=== PATIENT | female | born 2000 | race Caucasian/White ===

== ENCOUNTER 2022-09-03 21:35 | Inpatient (IN) | payer MEDICAID, SELFPAY ==
[2022-09-03 21:55] VITALS: BP 136/92; PULSE 63; RESP 22; TEMP 36.7; O2SAT 99
[2022-09-03 22:00] VITALS: BP 136/92; PULSE 63; RESP 22; TEMP 36.7; O2SAT 99
[2022-09-03 22:02] VITALS: BMI 18.7
[2022-09-03] MEDS: trazodone 50 mg Tablet PO (23:11)
[2022-09-03] MEDS: hyDROXYzine 25 mg Capsule 50 MG PO (23:11)
[2022-09-04 06:00] VITALS: BP 110/69; PULSE 70; RESP 16; TEMP 36.7; O2SAT 99
[2022-09-04] MEDS: nicotine 2 mg Gum BUCCAL ×4 (09:06→20:43)
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
[2022-09-04 14:00] VITALS: BP 129/88; PULSE 80; RESP 16; TEMP 36.4; O2SAT 97
[2022-09-04] MEDS: hyDROXYzine 25 mg Capsule 50 MG PO (18:24)
[2022-09-04 20:06] VITALS: BP 92/62; PULSE 59; RESP 16; TEMP 36.9; O2SAT 97
[2022-09-04] MEDS: trazodone 50 mg Tablet PO (20:35)
[2022-09-05] MEDS: acetaminophen 325 mg Tablet 650 MG PO ×2 (05:55→18:24)
[2022-09-05 06:00] VITALS: BP 109/76; PULSE 79; RESP 16; TEMP 36.6; O2SAT 98
[2022-09-05] MEDS: nicotine 2 mg Gum BUCCAL ×6 (07:41→21:00)
[2022-09-05] MEDS: hyDROXYzine 25 mg Capsule 50 MG PO (08:48)
--- NOTE | 2022-09-05 08:48 | PC.NURSE ---
PRN VISTARIL 50 MG GIVEN PO PER PT C/O STATED ANXIETY
[2022-09-05 14:00] VITALS: BP 124/89; PULSE 99; RESP 18; O2SAT 97
[2022-09-05] MEDS: escitalopram 10 mg Tablet PO (16:33)
--- NOTE | 2022-09-05 17:19 | W.PM.NPUPNS ---
Subjective NPU Subjective: Patient presented today reporting that she is doing fine. Her focus was squarely on the discharge. We continue to important she focused on being here and what she needed to ensure that she did have an episode like the one she had leading up to taking the overdose. Her boyfriend visited for visitation and she was focused on seeing if she could go home with him. We told her that it was our to make sure she has resources necessary to avoid a repeat and that the treatment team would be here tomorrow to ensure that that happens. Mental Status Exam MSE Comments: This is a thin, white female, in hospital scrubs, with limited grooming and adequate eye contact. No abnormal movements, except for mild psychomotor retardation. Cooperative with exam in mild distress. Speech was normal rate and volume. Mood described as pretty good but need to get home; affect anxious. Thought process, organized. Thought content: patient denied any suicidal or homicidal ideation, there were no delusions reported or noted, patient denied any auditory or visual hallucinations. Attention, concentration, and memory appeared intact, but none were formally tested. Alert and oriented times three. Insight and judgment are limited. Impulse control is impaired. Vitals/I&O/Wt Last Vital Signs Temp 98.2 F 09/05/22 20:59 Pulse 59 L 09/05/22 20:59 Resp 16 09/05/22 20:59 BP 110/71 09/05/22 20:59 Pulse Ox 97 09/05/22 20:59 O2 Del Method Room Air 09/05/22 20:59 Weight last 48 hrs Weight 52.707 kg A&P Assessment and plan (1) Major depressive disorder, recurrent: (2) PTSD (post-traumatic stress disorder): (3) Partner relational problem: (4) Generalized anxiety disorder: Plan This is a 22-year-old female, who presents after an attempted overdose on a hold, with significant history of trauma expressing a desire to be discharged. 1. Continue current medication. Which is Lexapro 10 mg p.o. every morning. 2. Encourage individual, group, and milieu therapy. 3. Continue q-15-minute checks for safety. Involuntary Hold Information 96 Hour Hold: 96 Hour Involuntary Admission: Yes 96 Hour Hold Ending Date: 09/08/22 96 Hour Hold Ending Time: 21:30 Attestations NPU Medical Necessity Statement*: Inpatient hospitalization is medically necessary and the clinically appropriate intervention, at this time. We will monitor medications and make changes as indicated. Likely length of stay is 1-3 days. Coding Level of Care Code Acute Code for Chg Fwd Diagnoses Major depressive disorder, recurrent F33.9 PTSD (post-traumatic stress disorder) F43.10 Partner relational problem Z63.0 Generalized anxiety disorder F41.1
[2022-09-05 20:59] VITALS: BP 110/71; PULSE 59; RESP 16; TEMP 36.8; O2SAT 97
[2022-09-05] MEDS: trazodone 50 mg Tablet PO (21:00)
[2022-09-06 06:00] VITALS: BP 109/72; PULSE 54; RESP 16; TEMP 36.8; O2SAT 99
[2022-09-06] MEDS: nicotine 2 mg Gum BUCCAL ×3 (06:45→12:41)
[2022-09-06] MEDS: escitalopram 10 mg Tablet PO (08:05)
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
[2022-09-06 10:18] VITALS: BP 109/72; PULSE 54; RESP 16; TEMP 36.8; O2SAT 99
[2022-09-06] MEDS: acetaminophen 325 mg Tablet 650 MG PO (12:41)
--- OUTSIDE RECORDS SUMMARY | 2022-09-14 07:07 | XMS_ITS | Patient Health Record ---
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 Name Role Phone Jamil Ruy Unavailable [phone] Pinky Mustafa Unavailable Faby Byrne Unavailable [phone] PROBLEMS Type Condition ICD9-CM Code RNE58-VL Code Onset Dates Condition Status W/U Status Risk SNOMED Code Notes Problem Gallstones K80.20 confirmed [id number] Problem Gallstones K80.20 confirmed [id number] ALLERGIES No Known Allergies ENCOUNTERS from 2002 to 2022-09-14 Encounter Location Date Provider Diagnosis [facility] [address] [place] [address] Aug, Ruy Negron [facility] [address] [place] [address] Aug, Ruy Negron [facility] [address] [place] [address] 08 Aug, 2021 Ruy Negron [facility] [address] [place] [address] Aug, Ruy Negron [facility] [address] [place] [address] July, Ruy Negron Gallstones K80.20 [facility] [address] [place] [address] Nov, Ruy Negron Gallstones K80.20 and Nausea R11.0 SOCIAL HISTORY Tobacco Use: Social History Observation Description Date Details (start date - stop date) Never Smoker Sex Assigned At : Social History Observation Description Sex Assigned At Unknown Alcohol Screen Question Answer Notes Did you have a drink containing alcohol in the p ast year? No Did you have a drink containing alcohol in the p ast year? No Points 0 Points 0 Interpretation Negative Interpretation Negative Tobacco Use/Smoking Question Answer Notes Are you a never smoker Are you a never smoker REASON FOR REFERRAL from 2002 to 2022-09-14 Reason RE:12/02/20 Referring Provider First Name Ruy Referring Provider Last Name Jamil Referring Provider Specialty General Tito tej Referred Provider Sanjeev Plascencia Referral Priority Routine Reason 08/26/21P 08/18/2021 Diagnosis 1 Gall stones (K80.20) Referred Provider Ruy Negron Referred Provider Specialty Surgery Referral Priority Routine Reason RE: 08/18/2021 Referring Provider First Name Ruy Referring Provider Last Name Jamil Referring Provider Specialty General Tito tej Referred Provider Skye Perrin Referral Priority Routine Reason RE: 09/08/21 Referring Provider First Name Ruy Referring Provider Last Name Jamil Referring Provider Specialty General Tito tej Referred Provider Sanjeev Plascencia Referral Priority Routine Reason RE:08/26/21 Referring Provider First Name Ruy Referring Provider Last Name Jamil Referring Provider Specialty General Tito tej Referred Provider Sanjeev Plascencia Referral Priority Routine VITAL SIGNS from 2002 to 2022-09-14 Height 65 in July, Weight 134.0 lbs July, BMI 22.3 kg/m2 July, Temperature 98.7 degrees Fahrenheit July, Oximetry 100 % July, Heart Rate 76 /min July, Respiratory Rate 20 /min July, Blood pressure systolic 97 mm Hg July, Blood pressure diastolic 66 mm Hg July, MEDICATIONS Medication SIG (Take, Route, Frequency, Duration) Notes Start Date End Date Status Norethindrone Active REASON FOR VISIT No Information MEDICAL (GENERAL) HISTORY Type Description Date Medical History Depressive disorder Medical History Cholelithiasis without Cholecyst itis Medical History Marijuana use Medical History ulcers Hospitalization History Gall stones Hospitalization History Childbirth x2 MENTAL STATUS No Information ASSESSMENTS Encounter Date Diagnosis Assessment Notes Treatment Notes Treatment Clinical Notes Aug, Gallstones (ICD-10 - K80.20) July, Gallstones (ICD-10 - K80.20) July, Other Patient wearing appropriate face mask while in clinic/exam room. COVID 19 Surgery Protocol Instructions given. This [employer] in full PPE. The patient understands the risk of bleeding, bile duct injury, injury to other organs, the potential need for open surgery. The patient is wishes to proceed. Symptomatic cholelithiasis. Plan laparoscopic cholecystectomy. The operation is reviewed. Risk of infection, bleeding, bile duct injury, injury to other organs in the abdomen potential need for open surgery at about 3%. She expresses understanding of the procedure and we will schedule in the near future. Nov, Nausea (ICD-10 - R11.0) Nov, Gallstones (ICD-10 - K80.20) Gallstones material was printed Nov, Other Patient wearing appropriate face mask while in clinic/exam room; this nurse in full PPE Cholelithiasis without evidence of cholecystitis. Nausea with emesis at times. She said she had good results with Zofran with her previous . We will go ahead and prescribe some for that. I advised that if she had persisting issues that she would need to go ahead and see her dairy associate for evaluation. In regard to her gallstones, she is going to have to wait for surgery. I have advised her the 22 to 25-week gestation window is probably optimal. Organogenesis and neuro Natasha are all completed at that time and size of the uterus is an issue particularly with laparoscopic surgery. She understands that premature delivery of her child will result in a intensive care unit situation. I advised her about the only circumstance for operative intervention would be evidence of advanced cholecystitis that was refractory to medical management with IV fluids and antibiotics. Certainly is possible that her difficulty with her nausea is primarily related to her and time will tell about that. I advised her to avoid grossly fatty foods to decrease gallbladder problems. She acknowledged understanding. She has an appointment to see Dr. Beverly for obstetrics care. PLAN OF TREATMENT Treatment Notes Assessment Notes Clinical Notes Gallstones Gallstones material was printed Pending Tests Test Name Order Date Test, Urine 2021-08-18 Comp. Metabolic Panel (14) 2021-08-18 CBC 2021-08-18 Referrals Referral Date Details RE:12/02/20, Sanjeev Bangura lsted 08/26/21P 08/18/2021 , Ruy Negron RE: 08/18/2021 RE: 09/08/21, Sanjeev garduno RE:08/26/21, Sanjeev Bangura lsted Insurance Providers Payer Name Payer Address Payer Phone Insured Name Patient Relationship to Insured Coverage Start Date Coverage End Date Subscriber Number Group Number [employer] [place] Virgen Fuentes [id number] [facility] [id number] Maddie Pascual Self - patient is the insured [id number]
--- OUTSIDE RECORDS SUMMARY | 2022-09-14 07:07 | XMS_ITS | Patient Health Record ---
Author Name Unknown Organization [facility] Address [address] [place] [id number] Care Team Providers Care Nutrition Services Aide Name Role Phone Neftalyleandra Sanjeev Unavailable [phone] Letha Fernandez Unavailable [phone] Carlos Verdugo Unavailable [phone] Olga Hawkins Unavailable [phone] xxxAlexsandra Tamez Unavailable [phone] xxxDhara Vasquez Unavailable xxSkye Mae Unavailable [phone] Frank Steele Unavailable [phone] Rachel Boyd Unavailable [phone] xxxRaul Jimenez Unavailable [phone] xxxArnaud Smith Unavailable [phone] Mason Doe Unavailable [phone] xxAlan Mast Unavailable [phone] xxxMcMarcelo Zhang Unavailable [phone] xxxWicho Cole Unavailable [phone] Judson Barrera Unavailable [phone] PROBLEMS Type Condition ICD9-CM Code WNV11-TV Code Onset Dates Condition Status W/U Status Risk SNOMED Code Notes Problem Gallstones K80.20 confirmed [id number] Problem Low lying placenta without hemorrhage, antepartum O44.40 confirmed [id number] Problem Constipation, unspecified constipation type K59.00 confirmed [id number] Problem Health Risk Assessment Level 3 (Secondary Prevention) 000.3 confirmed [id number] Problem PTSD (post-traumat ic stress disorder) F43.10 confirmed 84666560 Problem Nausea/vomiti ng in O21.9 confirmed 13595585 Problem Anxiety F41.9 confirmed 75109499 Problem Depression with anxiety F41.8 confirmed 875288082 Problem Gastroesophag eal reflux disease with esophagitis, unspecified whether hemorrhage K21.00 confirmed 362573468 Problem Marijuana use F12.90 confirmed 25115 0004 Problem and not yet delivered Z34.90 [id number] Problem Antepartum placenta circumvallata O43.119 confirmed 8595012 ALLERGIES Allergen (clinical drug ingredient) Drug/Non Drug Allergy documented on EMR Reaction Allergy Type Onset Date Status sertraline Zoloft([facility] Code:[address]-65) mood changes Drug Allergy Active ENCOUNTERS from 2002 to 2022-09-14 Encounter Location Date Provider Diagnosis [address] [place] [id number] Aug, Sanjeev Plascencia Depression with anxiety F41.8 ; Marijuana use F12.90 ; Low back pain at multiple sites M54.50 and PTSD (post-traumatic stress disorder) F43.[address] [place] [id number] Aug, Sanjeev Plascencia Depression with anxiety F41.8 ; Marijuana use F12.90 ; Low back pain at multiple sites M54.50 and Encounter for contraceptive planning Z30.09 [facility] [place] [id number] May, Letha Fernandez uterine contractions in third trimester, antepartum O47.03 ; 33 weeks gestation of Z3A.33 ; Nausea/vomiting in O21.9 ; Low lying placenta without hemorrhage, antepartum O44.40 ; Marijuana use F12.90 ; Antepartum placenta circumvallata O43.119 ; PTSD (post-traumatic stress disorder) F43.10 ; Anxiety F41.9 and History of delivery, currently O09.[address] [place] [id number] May, Sanjeev Plascencia Encounter for supervision of other normal , third trimester Z34.83 ; Nausea/vomiting in O21.9 ; contractions O47.00 ; Marijuana use F12.90 and Anxiety F41.[address] [place] [id number] May, Ross Halsted Nausea/vomiting in O21.[address] [place], [place] [id number] 21 Apr, 2022 Ross Halsted Encounter for supervision of other normal , third trimester Z34.83 ; Nausea and vomiting in O21.9 ; contractions O47.00 ; Marijuana use F12.90 ; PTSD (post-traumatic stress disorder) F43.10 and Anxiety F41.9 [facility] [address] [facility] [place] [id number] 16 Apr, 2022 Ross Halsted with 29 completed weeks gestation Z3A.29 ; Nausea and vomiting in O21.9 ; contractions O47.00 ; History of labor Z87.51 ; Low lying placenta without hemorrhage, antepartum O44.40 ; Marijuana use F12.90 and Antepartum placenta circumvallata O43.[address] [place] [id number] 16 Apr, 2022 Ross Halsted Nausea/vomiting in O21.[address] [place] [id number] 14 Apr, 2022 Ross Halsted Antepartum placenta circumvallata O43.119 ; Low lying placenta without hemorrhage, antepartum O44.40 ; Encounter for supervision of other normal , third trimester Z34.83 and Dermatitis L30.[address] [place] [id number] Mar, Ross Halsted Nausea/vomiting in O21.[address] [place] [id number] Mar, Ross Halsted Encounter for supervision of other normal , second trimester Z34.[address] [place] [id number] Feb, Ross Halsted Nausea/vomiting in O21.[address] [place] [id number] 29 Nov, 2022 Ross Halsted Encounter for supervision of other normal , second trimester Z34.82 [facility] [address] [place] [id number] 31 Dec, 2021 Ross Halsted Nausea/vomiting in O21.9 [facility] [address] [place] [id number] 17 Dec, 2021 Ross Halsted [facility] [address] [place] [id number] 10 Dec, 2021 Ross Halsted Nausea/vomiting in O21.9 and Encounter for supervision of other normal , first trimester Z34.81 [facility] [address] [place] [id number] 19 Nov, 2021 Ross Halsted Malaise R53.81 ; Encounter for supervision of other normal , first trimester Z34.81 ; Viral URI J06.9 and related nausea and vomiting, antepartum O21.9 [place] [address] [place] [id number] 16 Nov, 2021 Ross Halsted Nausea/vomiting in O21.9 [place] [address] [facility] [address] [place] [id number] Nov, Ross Halsted [place] [address] [place] [id number] Oct, Ross Halsted Nausea/vomiting in O21.9 [place] [address] [facility] [place] [id number] July, Skye Brandt Encounter for initial prescription of contraceptive pills Z30.011 and History of gallstones Z87.[address], [place] [id number] May, Ross Halsted with 34 completed weeks gestation Z3A.34 ; premature rupture of membranes with onset of labor within 24 hours of rupture O42.019 ; Low lying placenta without hemorrhage, antepartum O44.40 ; Marijuana use F12.90 and Vaginal delivery O80 [address], [place] [id number] May, Ross Halsted with 34 completed weeks gestation Z3A.34 ; premature rupture of membranes with onset of labor within 24 hours of rupture O42.019 ; Low lying placenta without hemorrhage, antepartum O44.40 ; Marijuana use F12.90 and Vaginal delivery O80 [address], [place] [id number] 11 May, 2021 Ross Halsted with 34 completed weeks gestation Z3A.34 and premature rupture of membranes with onset of labor within 24 hours of rupture O42.[address], [place] [id number] May, Ross Halsted with 34 completed weeks gestation Z3A.34 ; premature rupture of membranes with onset of labor within 24 hours of rupture O42.019 ; Low lying placenta without hemorrhage, antepartum O44.40 and Marijuana use F12.[address], [place] [id number] May, Frank Ivette Vaginal bleeding during , antepartum O46.90 ; Low lying placenta with hemorrhage in third trimester, antepartum O44.53 ; Hyperemesis affecting , antepartum O21.0 and Cannabis abuse, daily use F12.[address] [place] [id number] May, Ross Halsted [address] [place] [id number] May, Ross Halsted Low lying placenta without hemorrhage, antepartum O44.40 and Encounter for supervision of other normal , third trimester Z34.[address] [place], [place] [id number] Apr, Ross Halsted Vaginal discharge N89.8 ; Low lying placenta without hemorrhage, antepartum O44.40 ; Acute vaginitis N76.0 ; Other specified bacterial agents as the cause of diseases classified elsewhere B96.89 and Encounter for supervision of other normal , third trimester Z34.[address] [place] [id number] Apr, Ross Halsted [address] [place] [id number] Apr, Ross Halsted Vaginal discharge N89.8 ; Yeast vaginitis B37.3 and Encounter for supervision of other normal , third trimester Z34.[address] [place], [place] [id number] Mar, Ross Halsted Low lying placenta without hemorrhage, antepartum O44.40 ; Encounter for immunization Z23 and Encounter for supervision of other normal , third trimester Z34.[address] [place] [id number] 03 Mar, 2021 Sanjeev Plascencia Encounter for supervision of other normal , second trimester Z34.82 and Dysuria R30.[address] [place] [id number] Feb, Sanjeev Plascencia Nausea/vomiting in O21.9 ; Constipation, unspecified constipation type K59.00 ; Gastroesophageal reflux disease with esophagitis, unspecified whether hemorrhage K21.00 and Encounter for supervision of other normal , second trimester Z34.[address] [place] [id number] 11 Jan, 2021 Sanjeev Halsted [address] [place] [id number] 10 Jan, 2021 Sanjeev Plascencia Cervical cancer screening Z12.4 ; Vaginal discharge N89.8 ; Vaginal spotting N93.9 and Encounter for supervision of other normal , second trimester Z34.[address] [place] [id number] 04 Jan, 2021 Sanjeev Plascencia Encounter for supervision of other normal , second trimester Z34.[address] [place] [id number] 12 Dec, 2020 Sanjeev Halsted [address] [place], [place] [id number] 07 Dec, 2020 Sanjeev Higginbothamstjd Tinea corporis B35.4 ; Encounter for supervision of normal first , first trimester Z34.01 and Itching L29.[address] [place] [id number] Dec, Ross Halsted [address] [place] [id number] Nov, Ross Halsted [address] [place] [id number] Nov, Sanjeev Higginbothamstjd Gallstones K80.20 ; Nausea/vomiting in O21.9 and Encounter for supervision of other normal , first trimester Z34.[address] [place] [id number] 20 Nov, 2020 Sanjeev Plascencia [address] [place] [id number] 29 Nov, 2019 Dhara xxxMorgan Missed period N92.6 ; Breast pain N64.4 and Left breast lump N63.[address] [place] [id number] 14 Nov, 2019 Dhara xxxMorgan Well adolescent visit Z00.[address] [place] [id number] 10 May, 2019 Rachel Boyd Follow up Z09 ; Nerve pain M79.2 and Missed period N92.[address] [place] [id number] Feb, Dhara xxxMozaida Vulvodynia, unspecified N94.[address] [place] [id number] Jan, Rachelbest Boyd Neuropathy G62.[address] [place] [id number] Jan, Dhara xxxMorgan [address] [place] [id number] Dec, Dhara xxxMorgan Encounter for surveillance of injectable contraceptive Z30.[address] [place] [id number] Dec, Dhara xxxMorroseanna Neuropathy G62.9 ; Yeast infection B37.9 and Encounter for contraceptive management Z30.[address] [place] [id number] Nov, Dhara xxxMorgan [address] [place] [id number] Nov, Rachel Boyd Abdominal pain R10.9 and Musculoskeletal pain M79.[address] [place] [id number] 06 Nov, 2018 Dhara xxxMorgan Epigastric pain R10.13 ; Encounter for well adolescent visit with abnormal findings Z00.121 and Depression with anxiety F41.[address] [place] [id number] Oct, Dhara Babcock Acute vaginitis N76.[address] [place] [id number] Oct, Raul xxxTony Acute non-recurrent maxillary sinusitis J01.00 [facility] [address] [place] [id number] Sep, Dhara Babcock Encounter for Depo-Provera contraception Z30.42 [facility] [address] [facility] [place] [id number] Sep, Dhara Babcock [facility] Medicine Group [address] [place] [address] [place] [id number] July, Alexsandra Haines Diarrhea of presumed infectious origin R19.7 [facility] Medicine [address] [place] [id number] Jun, Alexsandra Haines Encounter for immunization Z23 ; Encounter for management and injection of depo-Provera Z30.42 ; Reflux gastritis K29.60 ; Well adolescent visit Z00.129 and 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 [facility] Medicine [address] [place], [place] [id number] Jun, Alexsandra Haines UTI symptoms R39.9 and Cystitis with hematuria N30.[address] [place] [id number] May, Arnaud xxxKaspar Gastroenteritis K52.[address] [place] [id number] Apr, Raul simmsxTony Fever and chills R50.9 and Acute non-recurrent maxillary sinusitis J01.00 [facility] Medicine [address] [place] [id number] Mar, Alexsandra simmsxDashawn UTI symptoms R39.9 and Routine screening for STI (sexually transmitted infection) Z11.3 [facility] Medicine [address] [place] [id number] Mar, Alexsandra simmsxHolliman [facility] Medicine Group [address] [place] [address] [place] [id number] Mar, Alexsandra xxxHolliman Encounter for contraceptive management Z30.[address] [place] [id number] Mar, Alexsandra xxxHolliman [address] [place] [id number] Mar, Alexsandra xxxHolliman [address] [place] [id number] Mar, Arnaud xxxKaspar Upper respiratory tract infection, unspecified type J06.9 and Diarrhea, unspecified type R19.[address] [place] [id number] Feb, Alexsandra xxxHolliman Acute non-recurrent maxillary sinusitis J01.[address] [place] [id number] Dec, Alexsandra xxxHolliman History of Helicobacter pylori infection Z86.19 ; Vertigo R42 and 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 [place] [id number] Dec, Alexsandra xxxHolliman Depo-Provera contraceptive status Z30.[address] [place] [id number] Nov, Alexsandra xxxHolliman [address] [place] [id number] Nov, Alexsandra xxxHolliman Rib pain on left side R07.81 and Reflux gastritis K29.[address] [place] [id number] Oct, Alexsandra xxxHolliman [address] [place] [id number] Sep, Marcelo xxxMcCall Encounter for contraceptive management Z30.[address] [place] [id number] Sep, Alexsandra xxxHolliman [address] [place] [id number] Jun, Alexsandra xxxHolliman Encounter for contraceptive management Z30.[address] [place], [place] [id number] May, Alexsandra simmsxHoljuwan UTI symptoms R39.9 and Pain in female genitalia on intercourse N94.[address] [place] [id number] Apr, Alexsandrahaylee simmsxHollimaudrey [address] [place] [id number] Mar, Alexsandra Haines Encounter for contraceptive management Z30.9 and Well adolescent visit Z00.[address] [place] [id number] Mar, Alexsandra xxxHollimaudrey [address] [place] [id number] Mar, Skipper xxxMcCormick [address] [place] [id number] Feb, Alexsandrahaylee simmsxHoljuwan Fever, unspecified fever cause R50.9 ; Other viral agents as the cause of diseases classified elsewhere B97.89 and Other specified respiratory disorders J98.[address] [place] [id number] Feb, Alexsandra xxxHolliman [address] [place] [id number] Feb, Alexsandrahaylee simmsxHoljuwan Reflux gastritis K29.[address] [place] [id number] Feb, Alexsandra xxxHolliman [address] [place] [id number] Jan, Alexsandra xxxHolliman [address] [place] [id number] Jan, Alexsandra xxxHolliman Impacted cerumen of right ear H61.[address] [place] [id number] Jan, Alexsandra xxxHolliman [address] [place] [id number] Jan, Alexsandra xxxHollimaudrey Right acute otitis media H66.91 and Impacted cerumen of right ear H61.[address] [place] [id number] Jan, Mason Doe Encounter for initial prescription of Nexplanon Z30.[address] [place], [place] [id number] Jan, Raul fletcherKathidaniel Acute suppurative otitis media of right ear without spontaneous rupture of tympanic membrane, recurrence not specified H66.001 and Impacted cerumen of right ear H61.[address] [place], [place] [id number] Dec, Alan Karen AGE (acute gastroenteritis) K52.9 and Flu-like symptoms R68.89 [facility] Medicine [address] [place] [id number] Dec, Alexsandra Haines Encounter for surveillance of injectable contraceptive Z30.[address] [place] [id number] Dec, Alexsandra Haines [address] [place] [id number] Dec, Skipper xxxMcCormick [address] [place] [id number] Dec, Alexsandra Haines Coccygeal pain M53.3 and Urinary symptom or sign R39.[address] [place] [id number] Dec, Alexsandra Haines [address] [place] [id number] Dec, Alexsandra Haines [address] [place] [id number] Nov, Alexsandra simmsxHollimaudrey [facility] Medicine [address] [place] [id number] Nov, Alexsandra Haines Urinary tract infection symptoms R39.9 and Routine screening for STI (sexually transmitted infection) Z11.[address] [place] [id number] Nov, Alexsandra simmsxDashawn Fatigue, unspecified type R53.83 and Reflux gastritis K29.[address] [place] [id number] Nov, Alexsandra simmsxHollimaudrey [address] [place] [id number] Oct, Alexsandra simmsxDashawn Urinary tract infection symptoms R39.9 and Urinary tract infection, site not specified N39.[address] [place] [id number] Sep, Alexsandra fletcherHoljuwan Encounter for contraceptive management, unspecified Z30.[address] [place] [id number] Sep, Alexsandra simmsxHollimaudrey [address] [place] [id number] Sep, Alexsandra Haines Contraceptive education Z30.[address] [place] [id number] Aug, Alexsandra Haines [address] [place] [id number] July, Alexsandra Haines Closed nondisplaced fracture of fifth metatarsal bone of right foot, initial encounter S92.354A [facility] [address] [place] [id number] July, Judson Barrera Electric shock, initial encounter T75.4XXA [address] [place] [id number] Apr, Alexsandrahaylee simmsxHoljuwan Dysuria R30.0 ; Common wart B07.8 and Urinary tract infection, site unspecified N39.[address] [place] [id number] Mar, Alexsandrahaylee simmsxHoljuwan Sore throat J02.9 ; Other viral agents as the cause of diseases classified elsewhere B97.89 and Acute upper respiratory infection, unspecified J06.[address] [place] [id number] Mar, Alexsandra Bergeronlimaudrey [address] [place] [id number] Mar, Alexsandra simmsxDashawn Spleen enlarged R16.1 and Epigastric abdominal pain R10.[address] [place] [id number] Feb, Alexsandra simmsxHollimaudrey [address] [place] [id number] Feb, Alexsandra Haines [address] [place] [id number] Feb, Alexsandra Haines [facility] [address] [place] [address] [place] [id number] Jan, Alexsandra Haines Spleen enlarged R16.[address] [place] [id number] Jan, Alexsandra Haines [address] [place] [id number] Jan, Alexsandra Haines [address] [place] [id number] Jan, Alexsandra Haines Acute gastritis without hemorrhage, unspecified gastritis type K29.00 and Left sided abdominal pain R10.[address] [place] [id number] Dec, Alexsandra Haines Acute gastritis without hemorrhage, unspecified gastritis type K29.[address] [place] [id number] Nov, Alexsandra Haines Encounter for education about contraceptive use Z30.[address] [place] [id number] Oct, Alexsandra Haines Urinary tract infection symptoms R39.9 and Patella-femoral syndrome M22.2X9 [address] [place] [id number] Nov, Alexsandra Haines Emotional problem of childhood 313.9 and Knee clicking 719.66 IMMUNIZATIONS Vaccine Route Administration Date Status Menactra (VFC) IM Intramuscular July 10, 2018 Adminis tered Havrix Ped IM Intramuscular July 10, 2018 Administe red Gardasil 9 (VFC) IM Intramuscular July 10, 2018 Admin istered Adacel IM Intramuscular Apr 16, 2021 Administere d SOCIAL HISTORY Tobacco Use: Social History Observation Description Date Details (start date - stop date) Current Smoker Sex Assigned At : Social History Observation Description Sex Assigned At Unknown Depression Question Answer Notes PHQ-2 Score 2 Feeling down, depressed, or hopeless? Several da ys Little interest or pleasure in doing things? Interpretation PHQ-9 Moderate Depression Score PHQ-9 14 Thoughts that you would be b troy off , or of hurting yourself? Not at all Moving or speaking so slowly that others have noticed. Or the opposite, being fidgety or restless? More than half the days Trouble concentrating on thi ngs, such as reading or watching TV? More than half the days Feeling bad about yourself, or that you have let yourself or your family down? Several days Poor attetite or overeating? Nearly every day Feeling tired or having little energy? More than half the days Trouble falling or staying a sleep, or sleeping too much? More than half the days Feeling down, depressed, or helpless? Several da ys Little interest or pleasure in doing things? Tobacco Screening Question Answer Notes Are you a: current smoker How long ago did you quit smoking? 0 Are you an other tobacco user? No Are you interested in quitting? Not ready to abiola t How many cigarettes a day do you smoke? 6-10 How often do you smoke cigarettes? every day Drug Screening Question Answer Notes Have you used drugs other th an those for medical reasons in the past 12 months? Yes Sexual History Question Answer Notes Last menstrual period unknown REASON FOR REFERRAL from 2002 to 2022-09-14 Reason Evalaution of some emotional issues h/o of some family problems that mom wants to address with a counselor Diagnosis 1 Emotional problem of childhood (313.9) Referral Organization [facility] Medicine [place] up Referring Provider First Name Alexsandra Referring Provider Last Name Zaki Referring Provider Specialty Pediatrics Referred Provider Youth, [place] Referred Provider Specialty Child and Ad olescent Psychiatry Referral Priority Routine Referral Appointment Date 2014-02-28 General Notes Venus Miranda RN 3:11:30 PM >faxed referral Venus Miranda RN 12/11/2013 4:57:37 PM >Received at [facility] Venus Miranda , RN 12/24/2013 4:29:22 PM >Refaxed referral Venus Miranda , [place] 01/16/2014 10:14:40 AM >Pending robert Venus Miranda RN 01/29/2014 11:40:48 AM >Mother would like to be evaluated with [facility] Venus Miranda RN 01/31/2014 9:22:53 AM >Referral received at [facility]. Venus Miranda RN 02/28/2014 11:06:40 AM >spoke with robert Logan 02/28/[address] Ferrell's office : Evaluation of knee swelling and pain with exercise and popping of the patella and patella felt like lock up. Diagnosis 1 Knee clicking (719.6 6) Referral Organization [facility] [place] Referring Provider First Name Alexsandra Referring Provider Last Name Zaki Referring Provider Specialty Pediatrics Referred Provider Stephen Ferrell Referred Provider Specialty Orthopedic S urgery Referral Priority Routine Referral Appointment Date 2013-12-17 General Notes Venus Miranda RN 3:11:43 PM >faxed referral Venus Miranda RN 12/12/2013 11:56:35 AM >Called and left message informing patient of date and time of robert, Patient will be seen on Dec 18 at 10:45, patient needs to arrive at 10:20 Reason Mom is wiling her to have a gynecological exam and start control, due to some behavior she had had Diagnosis 1 Encounter for educat ion about contraceptive use (Z30.09) Referral Organization [facility] up Referring Provider First Name Alexsandra Referring Provider Last Name Zaki Referring Provider Specialty Pediatrics Referred Provider Mirna Akers Referred Provider Specialty OB - Gynecol ogy Referral Priority Routine General Notes Damari Mcgarry 11/27 3:21:48 PM >Fax has been sent Damari Mcgarry 12/02/2015 1:46:46 PM >Toshia at Dr. Peterson's office states that they will call and make appointment with patient. This is will be mid December. Damari Mcgarry 12/02/2015 2:24:11 PM >Mother informed me that patient has appointment with Dr. Akers on Reason Patient with chronic abdominal pain ( epigastric/ LLQ) , partially improved on Ranitidine and dietary changes Appt 04/08/16 Diagnosis 1 Left sided abdominal pain (R10.9) Referral Organization [facility] up Referring Provider First Name Alexsandra Referring Provider Last Name demixHoljuwan Referring Provider Specialty Pediatrics Referred Provider Rubina Streeter Referred Provider Specialty Pediatric Ga stroenterology Referral Priority Routine General Notes Jodi Garcia LPN 4:25:35 PM >Referral faxed. Mother notified to call their office and confirm appt. She verbalized understanding. Reason Evaluate and Treat. Please make apt for next week if possible Diagnosis 1 Closed nondisplaced fracture of fifth metatarsal bone of right foot with routine healing, subsequent encounter (S92.963D) Referral Organization [facility] Medicine Lisandro up Referring Provider First Name Alexsandra Referring Provider Last Name xxxHolliman Referring Provider Specialty Pediatrics Referred Provider Abel Thomas Referred Provider Specialty Orthopedic S urgery Referral Priority Stat Referral Appointment Date 2016-08-17 General Notes Azalea Calderon 2:11:52 PM >Appt scheduled for 08/17/16 at 4:00pm, faxed referral and BARBARA referral, called parent LMTCB. Azalea Calderon 08/13/2016 2:21:56 PM >Mother notified Mary Jones 08/26/2016 2:04:05 PM >faxed referral tracking Azalea Calderon 09/29/2016 9:40:57 AM >Faxed request for consult notes Azalea Calderon 11/30/2016 10:31:58 AM >consult notes were attached and reviewed, Closed referral. Reason Seen before there, o ngoing episodes of abdominal pain, some reflux symptoms faxed 02-25 Diagnosis 1 Reflux gastritis (K2 9.60) Referral Organization [facility] up Referring Provider First Name Alexsandra Referring Provider Last Name xxxHolliman Referring Provider Specialty Pediatrics Referred Provider Danuta Merritt Referred Provider Specialty Pediatric Ga stroenterology Referral Priority Routine General Notes Lilian Patterson 02/25/2017 11:00:28 AM >faxed 02-25 Lilian Patterson 03/09/2017 10:57:07 AM >Apr 5th parent has to call to get time Lilian Patterson 03/09/2017 12:33:59 PM >Pt's mother notifed Fatemeh Liu 04/25/2017 11:27:44 AM >notes recieved Reason please lary garcia Diagnosis 1 Depressive disorder, not elsewhere classified (F32.9) Referral Organization [facility] up Referring Provider First Name Alexsandra Referring Provider Last Name xxxHolliman Referring Provider Specialty Pediatrics Referred Provider [facility] ing Referred Provider Specialty Psychiatry Referral Priority Routine Referral Appointment Date 2018-02-13 General Notes Niecy Willson 3:11:54 PM >faxed appt needs to be after 230 in the afternoon. Reason Gallstones faxed-L C Diagnosis 1 History of gallstone s (Z87.19) Referral Organization [facility] up Referring Provider First Name Skye Referring Provider Last Name xxxBaker Referring Provider Specialty Nurse Pract itioner Referred Provider Ruy Negron Referred Provider Specialty General Surg juan Referral Priority Routine General Notes Aletha Moore 07/22/19 03:58:57 PM >Referral faxed electronically. Reason *mood symptoms fax ed Diagnosis 1 Depression with anxi ety (F41.8) Referral Organization [facility] Referring Provider First Name Sanjeev Referring Provider Last Name Halsted Referring Provider Specialty Family Medi cine Referred Provider [employer] [facility],[employer] Engineer ing Referred Provider Specialty Psychologist Referral Priority Routine Referral Appointment Date 2022-09-09 General Notes Carlos Verdugo 2022 08:42:56 AM >faxed Richie Neves 09/02/2022 03:22:39 PM >Called [facility] at [phone] left VM asking for a return to confirm referral received. Carlos Verdugo 09/03/2022 10:59:05 AM >verified with [facility] they received referral and ATC pt today but ph#not working. Carlos Verdugo 09/07/2022 09:30:05 AM >appt 09/09. Richie Neves 09/09/2022 01:03:16 PM >RTF FAXED VITAL SIGNS from 2002 to 2022-09-14 Height 65.5 in Aug, Weight 112.2 lbs Aug, BMI 18.39 kg/m2 Aug, Temperature 97.6 degrees Fahrenheit Aug, Oximetry 98 % Aug, Heart Rate 103 /min Aug, Respiratory Rate 16 /min Aug, Blood pressure systolic 112 mm Hg Aug, Blood pressure diastolic 80 mm Hg Aug, MEDICATIONS Medication SIG (Take, Route, Frequency, Duration) Notes Start Date End Date Status Escitalopram Oxalate 10 MG 1 tablet Oral ly Once a day for 30 days Aug, Active traZODone HCl 50 MG 1 tablet at bedtime Orally as needed Active PROCEDURES from 2002 to 2022-09-14 Procedure Date Ordered Date Performed Result Body Sit e Depo Provera Injection (Pt's medication) 2017-04-11 N/A Depo Provera Injection (Pt's medication) 2017-07-08 N/A Depo Provera Injection (Pt's medication) 2017-10-06 N/A Depo Provera Injection (Pt's medication) 2018-01-06 N/A Depo Provera Injection (Pt's medication) 2018-04-10 N/A Depo Provera Injection (Pt's medication) 2018-07-10 N/A RESULTS from 2002 to 2022-09-14 Component Value Reference Range Notes RAD LUMBAR SPINE W/OBLIQUES MIN 4V Reviewed date:09/06/2022 10:37:34 Interpretation:normal Performing Lab: Notes/Report: CBC (WBC,RBC,HGB,HCT,PLT) Reviewed date:05/30/2022 19:19:15 Interpretation: Performing Lab:, [facility] Laboratory ([id number]), [address] [place] [address], [address] Notes/Report: HEMATOCRIT 35.3 % 34.1-44.9 % HEMOGLOBIN 11.8 g/dL 11.2-15.7 g/dL MEAN CORPUSCULAR HEMOGLOBIN 29.8 pg 25.6-32.2 pg MEAN CORPUSCULAR HGB CONC 33.4 g/dL 32.2-35.5 g/dL MEAN CORPUSCULAR VOLUME 89.1 fL 79.4-94.8 fL MEAN PLATELET VOLUME 10.9 fL 9.4-12.3 fL PLATELET COUNT 292 10 3/uL 182-369 10 3/uL RED CELL DISTRIBUTION WIDTH 13.1 % 11.7-14.4 % RED BLOOD COUNT 3.96 10 6/uL 3.93-5.22 10 6/uL WHITE BLOOD COUNT 22.67 10 3/uL 3.98-10.04 10 3/uL URINALYSIS W/ REFLEX TO CULT URE IF INDICATED Reviewed date:05/30/2022 19:19:30 Interpretation: Performing Lab:, [facility] ([id number]), [address] [place] [address], [id number] Notes/Report: AMORPHOUS SED FEW /hpf BILIRUBIN NEG NEG BLOOD NEG NEG GLUCOSE NEG NEG KETONES 3+ NEG LEUKOCYTE ESTERASE TRACE NEG MUCUS MOD /hpf NITRITE NEG NEG pH 7.5 pH units 4.5-8.0 pH units PROTEIN NEG NEG-TRACE SPECIFIC GRAVITY 1.020 1.001-1.035 SQUAMOUS EPITHELIALS MOD /hpf URINE APPEARANCE CLEAR URINE BACTERIA MOD /hpf URINE COLLECTION C/C URINE COLOR YELLOW URINE CULTURE REFLEX CLEAN CATCH URINE RBC 4-6 /hpf URINE WBC 2-3 /hpf 0-5 /hpf UROBILINOGEN 0.2 E.U. <1.0 E.U. URINE MEDICAL DRUG SCREEN Reviewed date:05/30/2022 19:19:40 Interpretation: Performing Lab:, [facility] ([id number]), [address] [place] [address], [address] Notes/Report: URINE AMPHETAMINE SCREEN NEGATIVE ng/mL NEG < 500 ng/m L URINE BARBITURATES SCREEN NEGATIVE ng/mL NEG < 200 ng/ mL URINE BENZODIAZEPINE SCREEN NEGATIVE ng/mL NEG < 150 n g/mL URINE BUPRENORPHINE SCREEN NEGATIVE ng/mL NEG < 10 ng/ mL URINE COCAINE SCREEN NEGATIVE ng/mL NEG < 150 ng/mL URINE DRUG SCREEN COMMENT URINE METHADONE SCREEN NEGATIVE ng/mL NEG < 200 ng/mL URINE METHAMPHETAMINE SCREEN NEGATIVE ng/mL NEG < 500 ng/mL URINE OPIATES SCREEN NEGATIVE ng/mL NEG < 100 ng/mL URINE OXYCODONE SCREEN NEGATIVE ng/mL NEG < 100 ng/mL URINE PCP SCREEN NEGATIVE ng/mL NEG < 25 ng/mL URINE PROPOXYPHENE SCREEN NEGATIVE ng/mL NEG < 300 ng/ mL URINE THC SCREEN PRESUMPTIVE POSITIVE ng/mL NEG < 50 n g/mL URINE TRICYCLIC SCREEN NEGATIVE ng/mL NEG < 300 ng/mL TYPE & SCREEN Reviewed date:05/30/2022 19:19:23 Interpretation: Performing Lab:, [facility] ([id number]), [address] [place] [address], [id number] Notes/Report: ABO TYPE O ANTIBODY SCREEN NEGATIVE NEG Rh TYPE POS RPR WITH REFLEX TO CONFIRMAT ORY TESTING* Reviewed date:06/01/2022 18:22:02 Interpretation: Performing Lab:, [facility] Laboratory ([id number]), [address] [place] [address], [id number] Notes/Report: RAPID PLASMA REAGIN NON-REAC NON-REAC GROUP B STREP CULTURE Reviewed date:06/02/2022 17:53:08 Interpretation: Performing Lab:, [facility] Laboratory ([id number]), [address] [place] [address], [id number] Notes/Report: GROUP B STREP CULTURE 05/30/2022 19:05 CULTURE, URINE CLEAN CATCH* Reviewed date:06/01/2022 18:21:43 Interpretation: Performing Lab:, [facility] Laboratory ([id number]), [address] [place] [address], [phone] Notes/Report: CULTURE, URINE CLEAN CATCH 05/30/2022 16:32 WET PREP Reviewed date:05/31/2022 04:39:06 Interpretation: Performing Lab:, [facility] Laboratory ([id number]), [address] [place] [address], [id number] Notes/Report: WET PREP 05/30/2022 19:05 CBC W/ AUTO DIFF* Reviewed date:05/23/2022 20:37:27 Interpretation: Performing Lab:, [facility] Laboratory ([id number]), [address] [place] [address], [phone] Notes/Report: BASOPHILS # (AUTO) 0.1 10 3/uL 0.01-0.08 10 3/uL BASOPHILS % (AUTO) 0.4 % 0.1-1.2 % EOSINOPHILS # (AUTO) 0.1 10 3/uL 0.04-0.36 10 3/uL EOSINOPHILS % (AUTO) 0.4 % 0.7-5.8 % HEMATOCRIT 36.9 % 34.1-44.9 % HEMOGLOBIN 12.5 g/dL 11.2-15.7 g/dL LYMPHOCYTES # (AUTO) 2.1 10 3/uL 1.18-3.74 10 3/uL LYMPHOCYTES % (AUTO) 11.4 % MEAN CORPUSCULAR HEMOGLOBIN 29.8 pg 25.6-32.2 pg MEAN CORPUSCULAR HGB CONC 33.9 g/dL 32.2-35.5 g/dL MEAN CORPUSCULAR VOLUME 87.9 fL 79.4-94.8 fL MONOCYTES # (AUTO) 1.0 10 3/uL 0.24-0.86 10 3/uL MONOCYTES % (AUTO) 5.4 % 4.7-12.5 % MEAN PLATELET VOLUME 10.8 fL 9.4-12.3 fL NEUTROPHILS # (AUTO) 15.0 10 3/uL 1.56-6.13 10 3/uL NEUTROPHILS % (AUTO) 80.4 % 34.0-71.1 % PLATELET COUNT 258 10 3/uL 182-369 10 3/uL RED CELL DISTRIBUTION WIDTH 13.2 % 11.7-14.4 % RED BLOOD COUNT 4.20 10 6/uL 3.93-5.22 10 6/uL WHITE BLOOD COUNT 18.66 10 3/uL 3.98-10.04 10 3/uL COMPREHENSIVE METABOLIC PANE L Reviewed date:05/23/2022 20:37:27 Interpretation: Performing Lab:, [facility] Laboratory ([id number]), [address] [place] [address], [address]38[address] Notes/Report: ALANINE AMINOTRANSFERASE 18 U/L 12-78 U/L ALBUMIN 3.2 gm/dL 2.6-4.6 gm/dL ALBUMIN/GLOBULIN RATIO 0.9 >1.0 ALKALINE PHOSPHATASE 124 U/L 30-130 U/L ANION GAP 12 mmol/L 5-15 mmol/L ASPARTATE AMINO TRANSFERASE 14 U/L 15-37 U/L BLOOD UREA NITROGEN 6 mg/dL 7-18 mg/dL CALCIUM 9.2 mg/dL 7.9-9.5 mg/dL CARBON DIOXIDE 21 mEq/L 21-32 mEq/L CHLORIDE 109 mEq/L 98-107 mEq/L CKD STAGE 1 Stage CREATININE 0.3 mg/dL 0.55-1.3 mg/dL EST GLOMERULAR FILTRATION RATE >90 60+ GLOBULIN 3.7 gm/dL 2.6-4.8 gm/dL GLUCOSE,RANDOM 86 mg/dL 74-106 mg/dL POTASSIUM 3.4 mEq/L 3.5-5.1 mEq/L SODIUM 139 mEq/L 136-145 mEq/L TOTAL BILIRUBIN 0.4 mg/dL 0.2-1.0 mg/dL TOTAL PROTEIN 6.9 gm/dL 6.0-8.7 gm/dL URINE MEDICAL DRUG SCREEN Reviewed date:05/23/2022 20:37:27 Interpretation: Performing Lab:, [facility] Laboratory ([id number]), [address] [place] [address], [address] Notes/Report: URINE AMPHETAMINE SCREEN NEGATIVE ng/mL NEG < 500 ng/m L URINE BARBITURATES SCREEN NEGATIVE ng/mL NEG < 200 ng/ mL URINE BENZODIAZEPINE SCREEN NEGATIVE ng/mL NEG < 150 n g/mL URINE BUPRENORPHINE SCREEN NEGATIVE ng/mL NEG < 10 ng/ mL URINE COCAINE SCREEN NEGATIVE ng/mL NEG < 150 ng/mL URINE DRUG SCREEN COMMENT URINE METHADONE SCREEN NEGATIVE ng/mL NEG < 200 ng/mL URINE METHAMPHETAMINE SCREEN NEGATIVE ng/mL NEG < 500 ng/mL URINE OPIATES SCREEN NEGATIVE ng/mL NEG < 100 ng/mL URINE OXYCODONE SCREEN NEGATIVE ng/mL NEG < 100 ng/mL URINE PCP SCREEN NEGATIVE ng/mL NEG < 25 ng/mL URINE PROPOXYPHENE SCREEN NEGATIVE ng/mL NEG < 300 ng/ mL URINE THC SCREEN PRESUMPTIVE POSITIVE ng/mL NEG < 50 n g/mL URINE TRICYCLIC SCREEN NEGATIVE ng/mL NEG < 300 ng/mL URINALYSIS WITH REFLEXES Reviewed date:05/23/2022 20:37:27 Interpretation: Performing Lab:, [facility] Laboratory ([id number]), [address] [place] [address], [address]78[address] Notes/Report: BILIRUBIN NEG NEG BLOOD NEG NEG GLUCOSE NEG NEG KETONES 3+ NEG LEUKOCYTE ESTERASE NEG NEG NITRITE NEG NEG pH 7.5 pH units 4.5-8.0 pH units PROTEIN TRACE NEG-TRACE SPECIFIC GRAVITY 1.020 1.001-1.035 URINE APPEARANCE CLEAR URINE COLLECTION C/C URINE COLOR YELLOW UROBILINOGEN 0.2 E.U. <1.0 E.U. RUPTURE OF MEMBRANES Reviewed date:05/09/2022 20:25:07 Interpretation:Negative Performing Lab:, [facility] Laboratory ([id number]), [address] [place] [address], [address]133 Notes/Report: RUPTURE OF MEMBRANES TEST NEGATIVE N URINE MEDICAL DRUG SCREEN Reviewed date:05/07/2022 05:15:19 Interpretation: Performing Lab:, [facility] Laboratory ([id number]), [address] [place] [address], [phone] Notes/Report: URINE AMPHETAMINE SCREEN NEGATIVE ng/mL NEG < 500 ng/m L URINE BARBITURATES SCREEN NEGATIVE ng/mL NEG < 200 ng/ mL URINE BENZODIAZEPINE SCREEN NEGATIVE ng/mL NEG < 150 n g/mL URINE BUPRENORPHINE SCREEN NEGATIVE ng/mL NEG < 10 ng/ mL URINE COCAINE SCREEN NEGATIVE ng/mL NEG < 150 ng/mL URINE DRUG SCREEN COMMENT URINE METHADONE SCREEN NEGATIVE ng/mL NEG < 200 ng/mL URINE METHAMPHETAMINE SCREEN NEGATIVE ng/mL NEG < 500 ng/mL URINE OPIATES SCREEN NEGATIVE ng/mL NEG < 100 ng/mL URINE OXYCODONE SCREEN NEGATIVE ng/mL NEG < 100 ng/mL URINE PCP SCREEN NEGATIVE ng/mL NEG < 25 ng/mL URINE PROPOXYPHENE SCREEN NEGATIVE ng/mL NEG < 300 ng/ mL URINE THC SCREEN PRESUMPTIVE POSITIVE ng/mL NEG < 50 n g/mL URINE TRICYCLIC SCREEN NEGATIVE ng/mL NEG < 300 ng/mL US BIOPHYSICAL PROFILE Reviewed date:05/07/2022 05:14:41 Interpretation:BPP: 8/8 Performing Lab: Notes/Report: US OB , LIMITED Reviewed date:05/10/2022 07:28:12 Interpretation:29w6d, HERNANDEZ 07/16/22 by US, posterior placenta Performing Lab: Notes/Report: GLUCOSE,TIMED Reviewed date:03/31/2022 11:51:50 Interpretation:Normal Performing Lab:, [facility] Laboratory ([id number]), [address] [place] [address], [id number] Notes/Report: GLUCOSE,TIMED 98 mg/dL 70-110 mg/dL URINALYSIS WITH REFLEXES Reviewed date:03/14/2022 11:44:12 Interpretation: Performing Lab:, [facility] Laboratory ([id number]), [address] [place] [address], [id number] Notes/Report: BILIRUBIN NEG NEG BLOOD NEG NEG GLUCOSE NEG NEG KETONES NEG NEG LEUKOCYTE ESTERASE NEG NEG NITRITE NEG NEG pH 7.5 pH units 4.5-8.0 pH units PROTEIN NEG NEG-TRACE SPECIFIC GRAVITY 1.015 1.001-1.035 URINE APPEARANCE HAZY URINE COLLECTION C/C URINE COLOR YELLOW UROBILINOGEN 0.2 E.U. <1.0 E.U. OB Growth and Anatomy gre ater than 20 WEEKS Reviewed date:03/17/2022 09:23:42 Interpretation:21w3d, HERNANDEZ 07/17/22 Performing Lab: Notes/Report: TEST IN QUESTION- MISSING RE QUIRED INFO Reviewed date:01/06/2022 11:37:44 Interpretation: Performing Lab:, [place], [employer], [address] [address], Bernie, [place], [phone] Brandon Mallory D.O., MPH Notes/Report: COMMENT COMMENT CONTACT: MISSING INFO: CBC W/ AUTO DIFF* Reviewed date:12/29/2021 06:33:22 Interpretation:Normal Performing Lab:, , [facility] Laboratory ([id number]), [address] [place] [address], [id number] Notes/Report: BASOPHILS # (AUTO) 0.0 10 3/uL 0.01-0.08 10 3/uL BASOPHILS % (AUTO) 0.6 % 0.1-1.2 % EOSINOPHILS # (AUTO) 0.1 10 3/uL 0.04-0.36 10 3/uL EOSINOPHILS % (AUTO) 1.9 % 0.7-5.8 % HEMATOCRIT 38.0 % 34.1-44.9 % HEMOGLOBIN 12.6 g/dL 11.2-15.7 g/dL LYMPHOCYTES # (AUTO) 2.1 10 3/uL 1.18-3.74 10 3/uL LYMPHOCYTES % (AUTO) 32.4 % MEAN CORPUSCULAR HEMOGLOBIN 28.4 pg 25.6-32.2 pg MEAN CORPUSCULAR HGB CONC 33.2 g/dL 32.2-35.5 g/dL MEAN CORPUSCULAR VOLUME 85.8 fL 79.4-94.8 fL MONOCYTES # (AUTO) 0.5 10 3/uL 0.24-0.86 10 3/uL MONOCYTES % (AUTO) 7.7 % 4.7-12.5 % MEAN PLATELET VOLUME 12.2 fL 9.4-12.3 fL NEUTROPHILS # (AUTO) 3.7 10 3/uL 1.56-6.13 10 3/uL NEUTROPHILS % (AUTO) 57.1 % 34.0-71.1 % PLATELET COUNT 237 10 3/uL 182-369 10 3/uL RED CELL DISTRIBUTION WIDTH 13.0 % 11.7-14.4 % RED BLOOD COUNT 4.43 10 6/uL 3.93-5.22 10 6/uL WHITE BLOOD COUNT 6.39 10 3/uL 3.98-10.04 10 3/uL TSH (THYROID STIMULATING HOR FRANCK) Reviewed date:12/29/2021 06:33:22 Interpretation:Normal Performing Lab:, [facility] Laboratory ([id number]), [address] [place] [address], [id number] Notes/Report: THYROID STIMULATING HORMONE 0.37 uIU/mL 0.36-3.74 uIU /mL URINE MEDICAL DRUG SCREEN Reviewed date:12/29/2021 06:33:22 Interpretation:Abnormal Performing Lab:, [facility] Laboratory ([id number]), [address] [place] [address], [id number] Notes/Report: URINE AMPHETAMINE SCREEN NEGATIVE ng/mL NEG < 500 ng/m L URINE BARBITURATES SCREEN NEGATIVE ng/mL NEG < 200 ng/ mL URINE BENZODIAZEPINE SCREEN NEGATIVE ng/mL NEG < 150 n g/mL URINE BUPRENORPHINE SCREEN NEGATIVE ng/mL NEG < 10 ng/ mL URINE COCAINE SCREEN NEGATIVE ng/mL NEG < 150 ng/mL URINE DRUG SCREEN COMMENT URINE METHADONE SCREEN NEGATIVE ng/mL NEG < 200 ng/mL URINE METHAMPHETAMINE SCREEN NEGATIVE ng/mL NEG < 500 ng/mL URINE OPIATES SCREEN NEGATIVE ng/mL NEG < 100 ng/mL URINE OXYCODONE SCREEN NEGATIVE ng/mL NEG < 100 ng/mL URINE PCP SCREEN NEGATIVE ng/mL NEG < 25 ng/mL URINE PROPOXYPHENE SCREEN NEGATIVE ng/mL NEG < 300 ng/ mL URINE THC SCREEN PRESUMPTIVE POSITIVE ng/mL NEG < 50 n g/mL URINE TRICYCLIC SCREEN NEGATIVE ng/mL NEG < 300 ng/mL ABO TYPE Reviewed date:12/29/2021 06:33:22 Interpretation:O positive Performing Lab:, [facility] Laboratory ([id number]), [address] [place] [address], [address] Notes/Report: ABO TYPE O Rh TYPE Reviewed date:12/29/2021 06:33:22 Interpretation:O positive Performing Lab:, [facility] Laboratory ([id number]), [address] [place] [address], [address] Notes/Report: Rh TYPE POS ANTIBODY SCREEN* Reviewed date:12/29/2021 06:33:22 Interpretation:Negative Performing Lab:, [facility] Laboratory ([id number]), [address] [place] [address], [address] Notes/Report: ANTIBODY SCREEN NEGATIVE NEG RPR WITH REFLEX TO CONFIRMAT ORY TESTING* Reviewed date:12/30/2021 06:27:43 Interpretation:non-reactive Performing Lab:, [facility] Laboratory ([id number]), [address] [place] [address], [address]1487 Notes/Report: RAPID PLASMA REAGIN NON-REAC NON-REAC HIV 1/2 SCREEN* Reviewed date:12/29/2021 06:33:22 Interpretation:Negative Performing Lab:, [facility] Laboratory ([id number]), [address] [place] [address], [address]26[address] Notes/Report: HIV RAPID SCREEN NEG NEG Rubella Immune Status (IgG A ntibody)* Reviewed date:12/31/2021 06:57:53 Interpretation:Immune Performing Lab:, [facility] Notes/Report: RUBELLA ANTIBODY (IGG) 1.66 Index Hepatitis B Surface Antigen with Reflex Confirmation* Reviewed date:12/31/2021 06:57:53 Interpretation:non-reactive Performing Lab:, [facility] Notes/Report: HEPATITIS B SURFACE ANTIGEN NON-REACTIVE NON-REACTIVE Hepatitis C Antibody with Re flex to HCV, RNA, Quantitative, Real-Time PCR Reviewed date:12/31/2021 06:57:54 Interpretation:non-reactive Performing Lab:, [facility] Notes/Report: HEP. C SIGNAL TO CUT-OFF 0.01 <1.00 HEPATITIS C AB NON-REACTIVE NON-REACTIVE Chlamydia/Neisseria gonorrho eae RNA, TMA* Reviewed date:12/31/2021 06:57:54 Interpretation:Negative Performing Lab:, [facility] Notes/Report: C.TRACHOMATIS RNA NOT DETECTED NOT DETECTED COMMENT SEE NOTE N.GONORRHOEAE RNA NOT DETECTED NOT DETECTED CULTURE, URINE CLEAN CATCH* Reviewed date:12/31/2021 06:57:54 Interpretation:Negative Performing Lab:, [facility] Laboratory ([id number]), [address] [place] [address], [address] Notes/Report: CULTURE, URINE CLEAN CATCH 12/28/2021 16:42 QNatal Advanced NIPT Reviewed date:01/12/2022 14:07:22 Interpretation:Normal Performing Lab:, [facility], [facility],, [address] [place], [phone] Pauline Barry MD,PhD,SAMUEL Notes/Report: ABNORMAL AUGUSTA? NO ABNORMAL US? NO ADVANCED MATERNAL AGE? NO FRACTION 13.33% GESTATIONAL AGE (IN DAYS) 3 GESTATIONAL AGE(IN WEEKS) 11 INTERPRETATION SEE NOTE LABORATORY COMMENTS SEE NOTE LIMITATIONS SEE NOTE METHODOLOGY SEE NOTE MICRODELETION Not detected MICRODELETION INTERP SEE NOTE NUMBER OF FETUSES? 1 PERSONAL/FAM HISTORY? NOT GIVEN SEX CHROMOSOME No aneuploidy SEX CHROMOSOME INTERP SEE NOTE SPECIFICATIONS SEE NOTE TRISOMY 13 (T13) Negative TRISOMY 18 (T18) Negative TRISOMY 21 (T21) Negative Y CHR. INTERPRETATION SEE NOTE Y CHROMOSOME Not detected IH OB US: Less than 14 Wks Reviewed date:12/28/2021 13:05:34 Interpretation:11w3d, HERNANDEZ 07/16/22 Performing Lab: Notes/Report: Flu A & B Rapid Test Reviewed date:12/07/2021 12:44:47 Interpretation:Negative Performing Lab: Notes/Report: A NEG B NEG CBC W/ AUTO DIFF* Reviewed date:12/07/2021 12:45:02 Interpretation: Performing Lab:, [facility] Laboratory ([id number]), [address] [place] [address], [address] Notes/Report: BASOPHILS # (AUTO) 0.0 10 3/uL 0.01-0.08 10 3/uL BASOPHILS % (AUTO) 0.7 % 0.1-1.2 % EOSINOPHILS # (AUTO) 0.2 10 3/uL 0.04-0.36 10 3/uL EOSINOPHILS % (AUTO) 3.4 % 0.7-5.8 % HEMATOCRIT 36.6 % 34.1-44.9 % HEMOGLOBIN 12.7 g/dL 11.2-15.7 g/dL LYMPHOCYTES # (AUTO) 1.9 10 3/uL 1.18-3.74 10 3/uL LYMPHOCYTES % (AUTO) 31.1 % MEAN CORPUSCULAR HEMOGLOBIN 28.5 pg 25.6-32.2 pg MEAN CORPUSCULAR HGB CONC 34.7 g/dL 32.2-35.5 g/dL MEAN CORPUSCULAR VOLUME 82.1 fL 79.4-94.8 fL MONOCYTES # (AUTO) 0.7 10 3/uL 0.24-0.86 10 3/uL MONOCYTES % (AUTO) 10.8 % 4.7-12.5 % MEAN PLATELET VOLUME 12.3 fL 9.4-12.3 fL NEUTROPHILS # (AUTO) 3.3 10 3/uL 1.56-6.13 10 3/uL NEUTROPHILS % (AUTO) 53.7 % 34.0-71.1 % PLATELET COUNT 190 10 3/uL 182-369 10 3/uL RED CELL DISTRIBUTION WIDTH 13.4 % 11.7-14.4 % RED BLOOD COUNT 4.46 10 6/uL 3.93-5.22 10 6/uL WHITE BLOOD COUNT 6.10 10 3/uL 3.98-10.04 10 3/uL COMPREHENSIVE METABOLIC PANE L Reviewed date:12/08/2021 13:08:17 Interpretation:Normal Performing Lab:, [facility], [facility] Laboratory ([id number]), [address] [place] [address], [id number] Notes/Report: ALANINE AMINOTRANSFERASE 19 U/L 12-78 U/L ALBUMIN 4.0 gm/dL 2.6-4.6 gm/dL ALBUMIN/GLOBULIN RATIO 1.3 >1.0 ALKALINE PHOSPHATASE 53 U/L 30-130 U/L ANION GAP 9.7 mmol/L 10-20 mmol/L ASPARTATE AMINO TRANSFERASE 13 U/L 15-37 U/L BLOOD UREA NITROGEN 8 mg/dL 7-18 mg/dL CALCIUM 9.2 mg/dL 7.9-9.5 mg/dL CARBON DIOXIDE 23 mEq/L 21-32 mEq/L CHLORIDE 106 mEq/L 98-107 mEq/L CKD STAGE 1 Stage CREATININE 0.6 mg/dL 0.55-1.3 mg/dL EST GLOMERULAR FILTRATION RATE >90 60+ GLOBULIN 3.1 gm/dL 2.6-4.8 gm/dL GLUCOSE,RANDOM 84 mg/dL 74-106 mg/dL POTASSIUM 3.7 mEq/L 3.5-5.1 mEq/L SODIUM 135 mEq/L 136-145 mEq/L TOTAL BILIRUBIN 0.4 mg/dL 0.2-1.0 mg/dL TOTAL PROTEIN 7.1 gm/dL 6.0-8.7 gm/dL CULTURE, URINE CLEAN CATCH* Reviewed date:12/10/2021 13:41:03 Interpretation:Negative [facility] ([id number]), [address] [place] [address], [id number] Notes/Report: CULTURE, URINE CLEAN CATCH 12/07/2021 11:51 COVID 19 Antigen RAPID Reviewed date:12/07/2021 12:44:32 Interpretation:Negative Performing Lab: Notes/Report: Rapid Result NEG Test, Urine Reviewed date:12/29/2021 06:33:22 Interpretation: Performing Lab: Notes/Report: Result NEG Test, Urine HEMOGLOBIN/HEMATOCRIT Reviewed date:05/31/2021 13:52:54 Interpretation: Performing Lab:, [facility] Laboratory ([id number]), [address] [place] [address], [id number] Notes/Report: HEMATOCRIT 36.3 % 34.1-44.9 % HEMOGLOBIN 11.8 g/dL 11.2-15.7 g/dL MAGNESIUM Reviewed date:05/29/2021 02:18:40 Interpretation: Performing Lab:, [facility] Laboratory ([id number]), [address] [place] [address], [id number] Notes/Report: MAGNESIUM 3.3 mg/dL 1.8-2.4 mg/dL RUPTURE OF MEMBRANES Reviewed date:05/29/2021 02:18:40 Interpretation: Performing Lab:, [facility] Laboratory ([id number]), [address] [place] [address], [id number] Notes/Report: RUPTURE OF MEMBRANES TEST POSITIVE N GROUP B STREP CULTURE Reviewed date:05/31/2021 13:54:59 Interpretation:Negative Performing Lab:, [facility] ([id number]), [address] [place] [address], [id number] Notes/Report: GROUP B STREP CULTURE 05/29/2021 00:58 US BIOPHYSICAL PROFILE Reviewed date:05/31/2021 14:09:37 Interpretation: Performing Lab: Notes/Report: CBC W/ AUTO DIFF* Reviewed date:05/29/2021 02:18:41 Interpretation: Performing Lab:, [facility] Laboratory ([id number]), [address] [place] [address], [id number] Notes/Report: BASOPHILS # (AUTO) 0.1 10 3/uL 0.01-0.08 10 3/uL BASOPHILS % (AUTO) 0.3 % 0.1-1.2 % EOSINOPHILS # (AUTO) 0.1 10 3/uL 0.04-0.36 10 3/uL EOSINOPHILS % (AUTO) 1.0 % 0.7-5.8 % HEMATOCRIT 36.9 % 34.1-44.9 % HEMOGLOBIN 11.9 g/dL 11.2-15.7 g/dL LYMPHOCYTES # (AUTO) 3.2 10 3/uL 1.18-3.74 10 3/uL LYMPHOCYTES % (AUTO) 22.3 % MEAN CORPUSCULAR HEMOGLOBIN 28.5 pg 25.6-32.2 pg MEAN CORPUSCULAR HGB CONC 32.2 g/dL 32.2-35.5 g/dL MEAN CORPUSCULAR VOLUME 88.5 fL 79.4-94.8 fL MONOCYTES # (AUTO) 1.2 10 3/uL 0.24-0.86 10 3/uL MONOCYTES % (AUTO) 8.7 % 4.7-12.5 % MEAN PLATELET VOLUME 10.9 fL 9.4-12.3 fL NEUTROPHILS # (AUTO) 9.4 10 3/uL 1.56-6.13 10 3/uL NEUTROPHILS % (AUTO) 66.1 % 34.0-71.1 % PLATELET COUNT 265 10 3/uL 182-369 10 3/uL RED CELL DISTRIBUTION WIDTH 12.7 % 11.7-14.4 % RED BLOOD COUNT 4.17 10 6/uL 3.93-5.22 10 6/uL WHITE BLOOD COUNT 14.29 3.98-10.04 URINE MEDICAL DRUG SCREEN Reviewed date:05/29/2021 02:18:41 Interpretation: Performing Lab:, [facility] Laboratory ([id number]), [address] [place] [address], [phone] Notes/Report: URINE AMPHETAMINE SCREEN NEGATIVE ng/mL NEG < 500 ng/m L URINE BARBITURATES SCREEN NEGATIVE ng/mL NEG < 200 ng/ mL URINE BENZODIAZEPINE SCREEN NEGATIVE ng/mL NEG < 150 n g/mL URINE BUPRENORPHINE SCREEN NEGATIVE ng/mL NEG < 10 ng/ mL URINE COCAINE SCREEN NEGATIVE ng/mL NEG < 150 ng/mL URINE DRUG SCREEN COMMENT URINE METHADONE SCREEN NEGATIVE ng/mL NEG < 200 ng/mL URINE METHAMPHETAMINE SCREEN NEGATIVE ng/mL NEG < 500 ng/mL URINE OPIATES SCREEN NEGATIVE ng/mL NEG < 100 ng/mL URINE OXYCODONE SCREEN NEGATIVE ng/mL NEG < 100 ng/mL URINE PCP SCREEN NEGATIVE ng/mL NEG < 25 ng/mL URINE PROPOXYPHENE SCREEN NEGATIVE ng/mL NEG < 300 ng/ mL URINE THC SCREEN PRESUMPTIVE POSITIVE ng/mL NEG < 50 n g/mL URINE TRICYCLIC SCREEN NEGATIVE ng/mL NEG < 300 ng/mL TYPE & SCREEN Reviewed date:05/29/2021 02:18:41 Interpretation: Performing Lab:, [facility] ([id number]), [address] [place] [address], [phone] Notes/Report: ABO TYPE O ANTIBODY SCREEN NEGATIVE NEG Rh TYPE POS RPR WITH REFLEX TO CONFIRMAT ORY TESTING* Reviewed date:06/03/2021 06:42:48 Interpretation: Performing Lab:, [facility] Laboratory ([id number]), [address] [place] [address], [id number] Notes/Report: RAPID PLASMA REAGIN NON-REAC NON-REAC Hematoxylin + Eosin Stain Reviewed date:06/01/2021 16:55:19 Interpretation: Performing Lab: Notes/Report: COVID-19 Reviewed date:05/29/2021 02:18:41 Interpretation: Performing Lab:, [facility] ([id number]), [address] [place] [address], [id number] Notes/Report: COVID19 NEGATIVE NEGATIVE CBC W/ AUTO DIFF* Reviewed date:05/23/2021 14:48:39 Interpretation: Performing Lab:, [facility] ([id number]), [address] [place] [address], [id number] Notes/Report: BASOPHILS # (AUTO) 0.1 10 3/uL 0.01-0.08 10 3/uL BASOPHILS % (AUTO) 0.4 % 0.1-1.2 % EOSINOPHILS # (AUTO) 0.1 10 3/uL 0.04-0.36 10 3/uL EOSINOPHILS % (AUTO) 1.0 % 0.7-5.8 % HEMATOCRIT 38.0 % 34.1-44.9 % HEMOGLOBIN 12.4 g/dL 11.2-15.7 g/dL LYMPHOCYTES # (AUTO) 2.2 10 3/uL 1.18-3.74 10 3/uL LYMPHOCYTES % (AUTO) 19.2 % MEAN CORPUSCULAR HEMOGLOBIN 28.8 pg 25.6-32.2 pg MEAN CORPUSCULAR HGB CONC 32.6 g/dL 32.2-35.5 g/dL MEAN CORPUSCULAR VOLUME 88.2 fL 79.4-94.8 fL MONOCYTES # (AUTO) 0.8 10 3/uL 0.24-0.86 10 3/uL MONOCYTES % (AUTO) 7.2 % 4.7-12.5 % MEAN PLATELET VOLUME 11.2 fL 9.4-12.3 fL NEUTROPHILS # (AUTO) 8.0 10 3/uL 1.56-6.13 10 3/uL NEUTROPHILS % (AUTO) 71.5 % 34.0-71.1 % PLATELET COUNT 249 10 3/uL 182-369 10 3/uL RED CELL DISTRIBUTION WIDTH 12.8 % 11.7-14.4 % RED BLOOD COUNT 4.31 10 6/uL 3.93-5.22 10 6/uL WHITE BLOOD COUNT 11.22 3.98-10.04 TYPE & CROSSMATCH 2 UNITS Reviewed date:05/23/2021 14:46:32 Interpretation: Performing Lab:, [facility] ([id number]), [address] [place] [address], [phone] Notes/Report: UNIT 2 COMP COMPATIBLE ABO TYPE Reviewed date:05/23/2021 14:46:12 Interpretation: Performing Lab:, [facility] ([id number]), [address] [place] [address], [phone] Notes/Report: ABO TYPE O Rh TYPE Reviewed date:05/23/2021 14:46:20 Interpretation: Performing Lab:, [facility] ([id number]), [address] [place] [address], [phone] Notes/Report: Rh TYPE POS ANTIBODY SCREEN* Reviewed date:05/23/2021 14:48:23 Interpretation: Performing Lab:, [facility] ([id number]), [address] [place] [address], [phone] Notes/Report: ANTIBODY SCREEN NEGATIVE NEG US OB , LIMITED Reviewed date:05/25/2021 18:14:56 Interpretation: Performing Lab: Notes/Report: URINE MICROSCOPIC EXAM ONLY Reviewed date:05/21/2021 05:56:28 Interpretation: Performing Lab:, [facility] ([id number]), [address] [place] [address], [phone] Notes/Report: MUCUS MOD /hpf SQUAMOUS EPITHELIALS MANY /hpf URINE BACTERIA MOD /hpf URINE CULTURE REFLEX NOT INDICATED URINE RBC 10-15 /hpf URINE WBC 7-10 /hpf 0-5 /hpf URINE MEDICAL DRUG SCREEN Reviewed date:05/21/2021 09:52:35 Interpretation: Performing Lab:, [facility] ([id number]), [address] [place] [address], [phone] Notes/Report: URINE AMPHETAMINE SCREEN NEGATIVE ng/mL NEG < 500 ng/m L URINE BARBITURATES SCREEN NEGATIVE ng/mL NEG < 200 ng/ mL URINE BENZODIAZEPINE SCREEN NEGATIVE ng/mL NEG < 150 n g/mL URINE BUPRENORPHINE SCREEN NEGATIVE ng/mL NEG < 10 ng/ mL URINE COCAINE SCREEN NEGATIVE ng/mL NEG < 150 ng/mL URINE DRUG SCREEN COMMENT URINE METHADONE SCREEN NEGATIVE ng/mL NEG < 200 ng/mL URINE METHAMPHETAMINE SCREEN NEGATIVE ng/mL NEG < 500 ng/mL URINE OPIATES SCREEN NEGATIVE ng/mL NEG < 100 ng/mL URINE OXYCODONE SCREEN NEGATIVE ng/mL NEG < 100 ng/mL URINE PCP SCREEN NEGATIVE ng/mL NEG < 25 ng/mL URINE PROPOXYPHENE SCREEN NEGATIVE ng/mL NEG < 300 ng/ mL URINE THC SCREEN PRESUMPTIVE POSITIVE ng/mL NEG < 50 n g/mL URINE TRICYCLIC SCREEN NEGATIVE ng/mL NEG < 300 ng/mL URINALYSIS WITH REFLEXES Reviewed date:05/21/2021 05:56:28 Interpretation: Performing Lab:, [facility] ([id number]), [address] [place] [address], [id number] Notes/Report: BILIRUBIN NEG NEG BLOOD NEG NEG GLUCOSE NEG NEG KETONES NEG NEG LEUKOCYTE ESTERASE TRACE NEG NITRITE NEG NEG pH 7.5 pH units 4.5-8.0 pH units PROTEIN NEG NEG-TRACE SPECIFIC GRAVITY 1.020 1.001-1.035 URINE APPEARANCE CLEAR URINE COLLECTION C/C URINE COLOR YELLOW UROBILINOGEN 0.2 E.U. <1.0 E.U. Chlamydia/Neisseria gonorrho eae RNA, TMA* Reviewed date:04/23/2021 19:59:49 Interpretation:Negative Performing Lab:, [facility] Notes/Report: C.TRACHOMATIS RNA NOT DETECTED NOT DETECTED COMMENT SEE NOTE N.GONORRHOEAE RNA NOT DETECTED NOT DETECTED WET PREP Reviewed date:04/23/2021 19:59:35 Interpretation:bacterial vaginosis Performing Lab:, [facility] ([id number]), [address] [place] [address], [id number] Notes/Report: WET PREP 04/22/2021 13:11 CBC W/ AUTO DIFF* Reviewed date:04/19/2021 19:28:52 Interpretation:Normal Performing Lab:, [facility] ([id number]), [address] [place] [address], [id number] Notes/Report: BASOPHILS # (AUTO) 0.1 10 3/uL 0.01-0.08 10 3/uL BASOPHILS % (AUTO) 0.4 % 0.1-1.2 % EOSINOPHILS # (AUTO) 0.2 10 3/uL 0.04-0.36 10 3/uL EOSINOPHILS % (AUTO) 1.6 % 0.7-5.8 % HEMATOCRIT 36.8 % 34.1-44.9 % HEMOGLOBIN 12.0 g/dL 11.2-15.7 g/dL LYMPHOCYTES # (AUTO) 2.3 10 3/uL 1.18-3.74 10 3/uL LYMPHOCYTES % (AUTO) 17.3 % MEAN CORPUSCULAR HEMOGLOBIN 29.1 pg 25.6-32.2 pg MEAN CORPUSCULAR HGB CONC 32.6 g/dL 32.2-35.5 g/dL MEAN CORPUSCULAR VOLUME 89.1 fL 79.4-94.8 fL MONOCYTES # (AUTO) 0.9 10 3/uL 0.24-0.86 10 3/uL MONOCYTES % (AUTO) 6.7 % 4.7-12.5 % MEAN PLATELET VOLUME 11.2 fL 9.4-12.3 fL NEUTROPHILS # (AUTO) 9.8 10 3/uL 1.56-6.13 10 3/uL NEUTROPHILS % (AUTO) 72.7 % 34.0-71.1 % PLATELET COUNT 214 10 3/uL 182-369 10 3/uL RED CELL DISTRIBUTION WIDTH 12.8 % 11.7-14.4 % RED BLOOD COUNT 4.13 10 6/uL 3.93-5.22 10 6/uL WHITE BLOOD COUNT 13.48 3.98-10.[address] METABOLIC PANE L Reviewed date:04/19/2021 19:28:52 Interpretation:Normal Performing Lab:, , [facility] ([id number]), [address] [place] [address], [id number] Notes/Report: ALANINE AMINOTRANSFERASE 17 U/L 12-78 U/L ALBUMIN 3.0 gm/dL 2.6-4.6 gm/dL ALBUMIN/GLOBULIN RATIO 0.8 >1.0 ALKALINE PHOSPHATASE 68 U/L 30-130 U/L ANION GAP 9.4 mmol/L 10-20 mmol/L ASPARTATE AMINO TRANSFERASE 11 U/L 15-37 U/L BLOOD UREA NITROGEN 7 mg/dL 7-18 mg/dL CALCIUM 8.6 mg/dL 7.9-9.5 mg/dL CARBON DIOXIDE 23 mEq/L 21-32 mEq/L CHLORIDE 105 mEq/L 98-107 mEq/L CKD STAGE 1 Stage CREATININE 0.4 mg/dL 0.55-1.3 mg/dL EST GLOMERULAR FILTRATION RATE >90 60+ GLOBULIN 3.6 gm/dL 2.6-4.8 gm/dL GLUCOSE,RANDOM 94 mg/dL 74-106 mg/dL POTASSIUM 3.4 mEq/L 3.5-5.1 mEq/L SODIUM 134 mEq/L 136-145 mEq/L TOTAL BILIRUBIN 0.3 mg/dL 0.2-1.0 mg/dL TOTAL PROTEIN 6.6 gm/dL 6.0-8.7 gm/dL URINE MEDICAL DRUG SCREEN Reviewed date:04/19/2021 19:28:52 Interpretation:Abnormal, THC Performing Lab:, [facility] ([id number]), [address] [place] [address], [id number] Notes/Report: URINE AMPHETAMINE SCREEN NEGATIVE ng/mL NEG < 500 ng/m L URINE BARBITURATES SCREEN NEGATIVE ng/mL NEG < 200 ng/ mL URINE BENZODIAZEPINE SCREEN NEGATIVE ng/mL NEG < 150 n g/mL URINE BUPRENORPHINE SCREEN NEGATIVE ng/mL NEG < 10 ng/ mL URINE COCAINE SCREEN NEGATIVE ng/mL NEG < 150 ng/mL URINE DRUG SCREEN COMMENT URINE METHADONE SCREEN NEGATIVE ng/mL NEG < 200 ng/mL URINE METHAMPHETAMINE SCREEN NEGATIVE ng/mL NEG < 500 ng/mL URINE OPIATES SCREEN NEGATIVE ng/mL NEG < 100 ng/mL URINE OXYCODONE SCREEN NEGATIVE ng/mL NEG < 100 ng/mL URINE PCP SCREEN NEGATIVE ng/mL NEG < 25 ng/mL URINE PROPOXYPHENE SCREEN NEGATIVE ng/mL NEG < 300 ng/ mL URINE THC SCREEN PRESUMPTIVE POSITIVE ng/mL NEG < 50 n g/mL URINE TRICYCLIC SCREEN NEGATIVE ng/mL NEG < 300 ng/mL US OB , LIMITED Reviewed date:04/27/2021 11:39:47 Interpretation:low lying placenta Performing Lab: Notes/Report: GLUCOSE,TIMED Reviewed date:03/24/2021 15:55:04 Interpretation:Normal Performing Lab:, [facility] ([id number]), [address] [place] [address], [id number] Notes/Report: GLUCOSE,TIMED 87 mg/dL 70-110 mg/dL CULTURE, URINE CLEAN CATCH* Reviewed date:03/25/2021 13:23:57 Interpretation:Negative [facility]forming Lab:, [facility] ([id number]), [address] [place] [address], [id number] Notes/Report: CULTURE, URINE CLEAN CATCH 03/24/2021 10:01 US OB greater than 20 WEEKS Reviewed date:03/03/2021 08:48:24 Interpretation:21w0d, HERNANDEZ 07/06/20 Performing Lab: Notes/Report: IMAGE-GUIDED PAP WITH AGE-BA SED SCREENING PROTOCOLS Reviewed date:02/05/2021 09:19:49 Interpretation:Normal Performing Lab:, [facility], [facility], [address], [place], [phone] [facility] Notes/Report: CLINICAL INFORMATION: COMMENT COMMENT COMMENT: LEGAL SPECIALIST: INTERPRETATION/RESULT: LMP: PREV. BX: PREV. PAP: REVIEW LEGAL SPECIALIST: SOURCE: STATEMENT OF ADEQUACY: WET PREP Reviewed date:01/29/2021 07:36:24 Interpretation:yeast present Performing Lab:, [facility] ([id number]), [address] [place] [address], [id number] Notes/Report: WET PREP 01/28/2021 17:33 US OB Routine 20 weeks Reviewed date:03/03/2021 14:52:33 Interpretation: Performing Lab: Notes/Report: QNatal Advanced NIPT Reviewed date:12/31/2020 13:36:00 Interpretation:normal Performing Lab:, EZ, [facility],, [address] [place], [phone] Pauline Barry MD,PhD,SAMUEL Notes/Report: ABNORMAL AUGUSTA? NO ABNORMAL US? NO ADVANCED MATERNAL AGE? NO FRACTION 10.19% GESTATIONAL AGE (IN DAYS) 1 GESTATIONAL AGE(IN WEEKS) 14 INTERPRETATION SEE NOTE LABORATORY COMMENTS SEE NOTE LIMITATIONS SEE NOTE METHODOLOGY SEE NOTE MICRODELETION Not detected MICRODELETION INTERP SEE NOTE NUMBER OF FETUSES? 1 PERSONAL/FAM HISTORY? NO SEX CHROMOSOME No aneuploidy SEX CHROMOSOME INTERP SEE NOTE SPECIFICATIONS SEE NOTE TRISOMY 13 (T13) Negative TRISOMY 18 (T18) Negative TRISOMY 21 (T21) Negative Y CHR. INTERPRETATION SEE NOTE Y CHROMOSOME Detected CBC W/ AUTO DIFF* Reviewed date:12/10/2020 19:37:39 Interpretation:Normal Performing Lab:, [facility], [facility] ([id number]), [address] [place] [address], [id number] Notes/Report: BASOPHILS # (AUTO) 0.0 10 3/uL 0.01-0.08 10 3/uL BASOPHILS % (AUTO) 0.5 % 0.1-1.2 % EOSINOPHILS # (AUTO) 0.1 10 3/uL 0.04-0.36 10 3/uL EOSINOPHILS % (AUTO) 1.9 % 0.7-5.8 % HEMATOCRIT 37.3 % 34.1-44.9 % HEMOGLOBIN 12.4 g/dL 11.2-15.7 g/dL LYMPHOCYTES # (AUTO) 1.8 10 3/uL 1.18-3.74 10 3/uL LYMPHOCYTES % (AUTO) 31.3 % MEAN CORPUSCULAR HEMOGLOBIN 28.8 pg 25.6-32.2 pg MEAN CORPUSCULAR HGB CONC 33.2 g/dL 32.2-35.5 g/dL MEAN CORPUSCULAR VOLUME 86.7 fL 79.4-94.8 fL MONOCYTES # (AUTO) 0.5 10 3/uL 0.24-0.86 10 3/uL MONOCYTES % (AUTO) 8.7 % 4.7-12.5 % MEAN PLATELET VOLUME 12.3 fL 9.4-12.3 fL NEUTROPHILS # (AUTO) 3.2 10 3/uL 1.56-6.13 10 3/uL NEUTROPHILS % (AUTO) 57.4 % 34.0-71.1 % PLATELET COUNT 228 10 3/uL 182-369 10 3/uL RED CELL DISTRIBUTION WIDTH 13.2 % 11.7-14.4 % RED BLOOD COUNT 4.30 10 6/uL 3.93-5.22 10 6/uL WHITE BLOOD COUNT 5.65 3.98-10.04 URINALYSIS W/ MICROSCOPIC Reviewed date:12/10/2020 19:37:40 Interpretation:Normal Performing Lab:, [facility] ([id number]), [address] [place] [address], [id number] Notes/Report: BILIRUBIN 1+ NEG BLOOD NEG NEG GLUCOSE NEG NEG KETONES TRACE NEG LEUKOCYTE ESTERASE 2+ NEG MUCUS MOD /hpf NITRITE NEG NEG pH 7.0 pH units 4.5-8.0 pH units PROTEIN TRACE NEG-TRACE SPECIFIC GRAVITY 1.020 1.001-1.035 SQUAMOUS EPITHELIALS MANY /hpf TRANSITIONAL EPITHELIALS MANY /hpf URINE APPEARANCE CLEAR URINE BACTERIA MOD /hpf URINE COLLECTION VOID URINE COLOR YELLOW URINE CULTURE REFLEX NOT INDICATED URINE RBC 0-2 /hpf URINE WBC 5-10 /hpf 0-5 /hpf UROBILINOGEN 2.0 E.U. <1.0 E.U. TSH (THYROID STIMULATING HOR FRANCK) Reviewed date:12/10/2020 19:37:40 Interpretation:Normal Performing Lab:, [facility] ([id number]), [address] [place] [address], [id number] Notes/Report: THYROID STIMULATING HORMONE 0.31 uIU/mL 0.36-3.74 uIU /mL URINE MEDICAL DRUG SCREEN Reviewed date:12/10/2020 19:37:40 Interpretation:Abnormal Performing Lab:, [facility] ([id number]), [address] [place] [address], [id number] Notes/Report: URINE AMPHETAMINE SCREEN NEGATIVE ng/mL NEG < 500 ng/m L URINE BARBITURATES SCREEN NEGATIVE ng/mL NEG < 200 ng/ mL URINE BENZODIAZEPINE SCREEN NEGATIVE ng/mL NEG < 150 n g/mL URINE BUPRENORPHINE SCREEN NEGATIVE ng/mL NEG < 10 ng/ mL URINE COCAINE SCREEN NEGATIVE ng/mL NEG < 150 ng/mL URINE DRUG SCREEN COMMENT URINE METHADONE SCREEN NEGATIVE ng/mL NEG < 200 ng/mL URINE METHAMPHETAMINE SCREEN NEGATIVE ng/mL NEG < 500 ng/mL URINE OPIATES SCREEN NEGATIVE ng/mL NEG < 100 ng/mL URINE OXYCODONE SCREEN NEGATIVE ng/mL NEG < 100 ng/mL URINE PCP SCREEN NEGATIVE ng/mL NEG < 25 ng/mL URINE PROPOXYPHENE SCREEN NEGATIVE ng/mL NEG < 300 ng/ mL URINE THC SCREEN PRESUMPTIVE POSITIVE ng/mL NEG < 50 n g/mL URINE TRICYCLIC SCREEN NEGATIVE ng/mL NEG < 300 ng/mL ABORh TYPE* Reviewed date:12/10/2020 19:37:40 Interpretation:O positive Performing Lab:, [facility] ([id number]), [address] [place] [address], [id number] Notes/Report: ABORh TYPE O POS ANTIBODY SCREEN* Reviewed date:12/10/2020 19:37:40 Interpretation:Negative Performing Lab:, [facility] ([id number]), [address] [place] [address], [id number] Notes/Report: ANTIBODY SCREEN NEGATIVE NEG RPR WITH REFLEX TO CONFIRMAT ORY TESTING* Reviewed date:12/12/2020 03:10:20 Interpretation:non-reactive Performing Lab:, [facility] ([id number]), [address] [place] [address], [id number] Notes/Report: RAPID PLASMA REAGIN NON-REAC NON-REAC HIV 1/2 SCREEN* Reviewed date:12/10/2020 19:37:40 Interpretation:Negative Performing Lab:, [facility] ([id number]), [address] [place] [address], [id number] Notes/Report: HIV RAPID SCREEN NEG NEG Rubella Immune Status (IgG A ntibody)* Reviewed date:12/12/2020 03:10:20 Interpretation:Immune Performing Lab:, [facility] Notes/Report: RUBELLA ANTIBODY (IGG) 1.47 Index Hepatitis B Surface Antigen with Reflex Confirmation* Reviewed date:12/12/2020 03:10:20 Interpretation:non-reactive Performing Lab:, [facility] Notes/Report: HEPATITIS B SURFACE ANTIGEN NON-REACTIVE NON-REACTIVE Chlamydia/Neisseria gonorrho eae RNA, TMA* Reviewed date:12/12/2020 03:10:20 Interpretation:Negative Performing Lab:, [facility] Notes/Report: C.TRACHOMATIS RNA NOT DETECTED NOT DETECTED COMMENT SEE NOTE N.GONORRHOEAE RNA NOT DETECTED NOT DETECTED CULTURE, URINE CLEAN CATCH* Reviewed date:12/12/2020 03:10:20 Interpretation:Negative Performing Lab:, [facility] ([id number]), [address] [place] [address], [id number] Notes/Report: CULTURE, URINE CLEAN CATCH 12/09/2020 17:04 IH OB US: Less than 14 Wks Reviewed date:12/12/2020 08:30:55 Interpretation:10w0d, HERNANDEZ 07/07/21 Performing Lab: Notes/Report: US BREAST, LEFT ROUTINE Reviewed date:12/19/2019 15:44:02 Interpretation: Performing Lab: Notes/Report: Test, Urine Reviewed date:12/18/2019 15:41:53 Interpretation: Performing Lab: Notes/Report: Result NEGATIVE Test, Urine Test, Urine Reviewed date:05/29/2019 10:08:13 Interpretation: Performing Lab: Notes/Report: Result NEGATIVE Test, Urine Chlamydia/Neisseria gonorrho eae RNA, TMA* Reviewed date:09/07/2019 11:14:37 Interpretation: Performing Lab:, [facility] Notes/Report: C.TRACHOMATIS RNA NOT DETECTED NOT DETECTED COMMENT SEE NOTE N.GONORRHOEAE RNA NOT DETECTED NOT DETECTED Wet Prep Reviewed date:03/19/2019 11:19:04 Interpretation: Performing Lab: Notes/Report: Result WBC OCC RBC NEGATIVE EPI 1+ JOAQUÍN NEGATIVE CLUE NEGATIVE TRIC NEGATIVE YEAST NEGATIVE NOTES UA w/ MICRO Reviewed date:03/19/2019 11:19:27 Interpretation: Performing Lab: Notes/Report: COLOR YELLOW CLARITY CLEAR SG 1.020 PH 7.0 URO 0.2 BUCK 1+ NIT NEGATIVE PRO NEGATIVE BLOOD 1+ KET NEGATIVE BILI NEGATIVE GLUCOSE NEGATIVE WBC 3-5 RBC NEGATIVE EPI 1+ CASTS NEGATIVE JOAQUÍN NEGATIVE CRYSTALS NEGATIVE MUCUS NEGATIVE AMORP NEGATIVE NOTES Chlamydia/Neisseria gonorrho eae RNA, TMA* Reviewed date:03/20/2019 12:28:58 Interpretation: Performing Lab:, [facility] Notes/Report: C.TRACHOMATIS RNA NOT DETECTED NOT DETECTED COMMENT SEE NOTE N.GONORRHOEAE RNA NOT DETECTED NOT DETECTED CULTURE, URINE CLEAN CATCH* Reviewed date:03/22/2019 10:33:22 Interpretation: Performing Lab:, [facility] ([id number]), [address] [place] [address], [id number] Notes/Report: CULTURE, URINE CLEAN CATCH 03/19/2019 15:09 Test, Urine Reviewed date:01/09/2019 10:19:46 Interpretation: Performing Lab: Notes/Report: Result NEGATIVE Test, Urine Chlamydia/Neisseria gonorrho eae RNA, TMA* Reviewed date:09/07/2019 11:14:52 Interpretation: Performing Lab:, [facility] Notes/Report: C.TRACHOMATIS RNA NOT DETECTED NOT DETECTED COMMENT SEE NOTE N.GONORRHOEAE RNA NOT DETECTED NOT DETECTED UA-Auto W/O Micro Reviewed date:11/27/2018 19:50:08 Interpretation: Performing Lab: Notes/Report: COLOR COLOR Result REBEKA BLOOD CLARITIY GLU KET BUCK NIT PH PRO SG URO COLOR YELLOW CLARITY CLEAR GLUCOSE NEGATIVE BILI NEGATIVE KET NEGATIVE SG 1.020 BLOOD NEGATIVE PH 7.0 PRO NEGATIVE URO 0.2 NIT NEGATIVE BUCK NEGATIVE Chlamydia/Neisseria gonorrho eae RNA, TMA* Reviewed date:11/27/2018 19:47:38 Interpretation: Performing Lab:, [facility] Notes/Report: C.TRACHOMATIS RNA NOT DETECTED NOT DETECTED COMMENT SEE NOTE N.GONORRHOEAE RNA NOT DETECTED NOT DETECTED Urinalysis Reviewed date:06/20/2018 16:09:16 Interpretation: Performing Lab: Notes/Report: Urine color cristal Appearance cloudy Glucose (Normal : Neg) neg Bilirubin (Normal : Neg) neg Ketones (Normal : Neg) trace Specific Dawson (Normal : 1.003-1.0259) >1.030 Blood (Normal : Neg) trace pH (Normal : 4.5-8.0) 6.0 Protein (Normal : Neg) trace Urobilinogen (Normal : less than 1) normal Nitrate (Normal : Neg) neg Leukocytes Esterase (Normal : Neg) neg WBC (Normal : Neg) RBC (Normal : Neg) Epithelial Cells Bacteria (Normal : Neg) Mucus (Normal : Neg) Other CULTURE, URINE CLEAN CATCH* Reviewed date:06/23/2018 10:20:31 Interpretation: Performing Lab:, [facility] ([id number]), [address] [place] [address], [id number] Notes/Report: CULTURE, URINE CLEAN CATCH 06/20/2018 17:17 US RENAL WITH BLADDER Reviewed date:06/27/2018 16:45:28 Interpretation: Performing Lab: Notes/Report: Flu A & B Rapid Test Reviewed date:05/16/2018 21:06:10 Interpretation: Performing Lab: Notes/Report: A NEG B NEG Urinalysis Reviewed date:04/19/2018 15:10:01 Interpretation: Performing Lab: Notes/Report: Urine color yellow Appearance cloudy Glucose (Normal : Neg) neg Bilirubin (Normal : Neg) small Ketones (Normal : Neg) trace Specific Dawson (Normal : 1.003-1.0259) >=1.030 Blood (Normal : Neg) small pH (Normal : 4.5-8.0) 6.0 Protein (Normal : Neg) trace Urobilinogen (Normal : less than 1) 1.0 Nitrate (Normal : Neg) neg Leukocytes Esterase (Normal : Neg) neg WBC (Normal : Neg) RBC (Normal : Neg) Epithelial Cells Bacteria (Normal : Neg) Mucus (Normal : Neg) Other Chlamydia/Neisseria gonorrho eae RNA, TMA* Reviewed date:04/21/2018 11:53:56 Interpretation: Performing Lab:, [facility] Notes/Report: C.TRACHOMATIS RNA NOT DETECTED NOT DETECTED COMMENT SEE NOTE N.GONORRHOEAE RNA NOT DETECTED NOT DETECTED CULTURE, URINE CLEAN CATCH* Reviewed date:04/21/2018 11:54:13 Interpretation: Performing Lab:, [facility] ([id number]), [address] [place] [address], [id number] Notes/Report: CULTURE, URINE CLEAN CATCH 04/19/2018 15:53 Test, Urine Reviewed date:04/10/2018 15:14:50 Interpretation: Performing Lab: Notes/Report: Result neg Test, Urine Strep Screen ([facility]) Reviewed date:03/26/2018 12:40:30 Interpretation: Performing Lab: Notes/Report: Result NEG Helicobacter pylori Antigen, EIA, Stool Reviewed date:01/23/2018 16:00:39 Interpretation: Performing Lab:, [facility] Notes/Report: H.PYLORI AG: SEE NOTE IH RIB SERIES X-RAY: LEFT 3 VIEW Reviewed date:09/12/2018 08:14:40 Interpretation: Performing Lab: Notes/Report: Urinalysis Reviewed date:05/31/2017 10:55:08 Interpretation: Performing Lab: Notes/Report: Urine color cristal Appearance clear Glucose (Normal : Neg) neg Bilirubin (Normal : Neg) neg Ketones (Normal : Neg) neg Specific Dawson (Normal : 1.003-1.0259) 1.030 Blood (Normal : Neg) neg pH (Normal : 4.5-8.0) 6.0 Protein (Normal : Neg) neg Urobilinogen (Normal : less than 1) neg Nitrate (Normal : Neg) neg Leukocytes Esterase (Normal : Neg) neg WBC (Normal : Neg) RBC (Normal : Neg) Epithelial Cells Bacteria (Normal : Neg) Mucus (Normal : Neg) Other Test, Urine Reviewed date:04/17/2017 20:47:39 Interpretation: Performing Lab: Notes/Report: Result NEG Test, [facility] ([facility] Reviewed date:03/17/2017 09:52:33 Interpretation: Performing Lab: Notes/Report: Result NEGATIVE Dolores Spot Reviewed date:03/17/2017 15:40:45 Interpretation: Performing Lab: Notes/Report: Dolores result NEGATIVE NEGATIVE - NEGATIVE Flu A & B Rapid Test Reviewed date:03/17/2017 15:40:39 Interpretation: Performing Lab: Notes/Report: A NEG B NEG Flu A & B Rapid Test Reviewed date:01/13/2017 12:40:24 Interpretation: Performing Lab: Notes/Report: A Neg. B Neg. Urinalysis, Complete Dip Reviewed date:12/29/2016 16:11:02 Interpretation: Performing Lab: Notes/Report: Microscopic Examination Urine-Color yellow Appearance hazy Glucose (Normal: Negative) neg Bilirubin (Normal: Negative) neg Ketones ((Normal: Negative) neg Specific Dawson (Normal: 1.001-1.035) 1.030 Blood (Normal: Negative) trace pH (Normal: 4.5-8.0) 5.5 Protein (Normal: Negative-Trace) neg Urobilinogen,Semi-Qn (Normal : <1.0) neg Leukocytes (Normal : Negative) neg Nitrite, Urine (Normal: Negative) neg WBC Esterase (Normal: Negative) Urinalysis Gross Exam Microscopic Examination Urinalysis, Complete Dip Reviewed date:12/15/2016 15:57:25 Interpretation: Performing Lab: Notes/Report: Microscopic Examination Urine-Color Yellow Appearance Clear Glucose (Normal: Negative) NEG Bilirubin (Normal: Negative) NEG Ketones ((Normal: Negative) NEG Specific Dawson (Normal: 1.001-1.035) 1.025 Blood (Normal: Negative) trace pH (Normal: 4.5-8.0) 6.0 Protein (Normal: Negative-Trace) NEG Urobilinogen,Semi-Qn (Normal : <1.0) NEG Leukocytes (Normal : Negative) NEG Nitrite, Urine (Normal: Negative) NEG WBC Esterase (Normal: Negative) Urinalysis Gross Exam Microscopic Examination Chlamydia/Neisseria gonorrho eae RNA, TMA* Reviewed date:12/20/2016 12:00:10 Interpretation: Performing Lab:, [facility] Notes/Report: C.TRACHOMATIS RNA DETECTED NOT DETECTED COMMENT SEE NOTE N.GONORRHOEAE RNA NOT DETECTED NOT DETECTED CBC W/ AUTO DIFF* Reviewed date:12/03/2016 17:24:23 Interpretation: Performing Lab:, [facility] Laboratory, [id number], [address] [place] [address], [id number] Notes/Report: BASOPHILS # (AUTO) 0.0 10 3/uL BASOPHILS % (AUTO) 0.7 % 0-1 % EOSINOPHILS # (AUTO) 0.2 10 3/uL 0.0-0.5 10 3/uL EOSINOPHILS % (AUTO) 4.1 % 0-3 % HEMATOCRIT 36.8 % 36-41 % HEMOGLOBIN 12.0 g/dL 11.6-15.3 g/dL LYMPHOCYTES # (AUTO) 2.0 10 3/uL 1.0-4.8 10 3/uL LYMPHOCYTES % (AUTO) 33.5 % 23-47 % MEAN CORPUSCULAR HEMOGLOBIN 25.9 pg 27-31 pg MEAN CORPUSCULAR HGB CONC 32.7 g/dL 33-37 g/dL MEAN CORPUSCULAR VOLUME 79.3 fL 81-99 fL MONOCYTES # (AUTO) 0.6 10 3/uL 0.0-0.8 10 3/uL MONOCYTES % (AUTO) 10.1 % 2-10 % MEAN PLATELET VOLUME 10.4 fL 7.4-10.4 fL NEUTROPHILS # (AUTO) 3.0 10 3/uL 1.8-7.7 10 3/uL NEUTROPHILS % (AUTO) 51.6 % 32-74 % PLATELET COUNT 226 10 3/uL 130-400 10 3/uL RED CELL DISTRIBUTION WIDTH 13.4 % 11.5-14.5 % RED BLOOD COUNT 4.64 10 6/uL 4.2-5.4 10 6/uL WHITE BLOOD COUNT 5.9 10 3/uL 4.8-10.8 10 3/uL Urinalysis, Complete Dip Reviewed date:11/15/2016 09:21:12 Interpretation: Performing Lab: Notes/Report: Microscopic Examination Urine-Color Yellow Appearance cloudy Glucose (Normal: Negative) NEG Bilirubin (Normal: Negative) NEG Ketones ((Normal: Negative) NEG Specific Dawson (Normal: 1.001-1.035) 1.030 Blood (Normal: Negative) 1+ pH (Normal: 4.5-8.0) 6.0 Protein (Normal: Negative-Trace) 1+ Urobilinogen,Semi-Qn (Normal : <1.0) NEG Leukocytes (Normal : Negative) 3+ Nitrite, Urine (Normal: Negative) NEG WBC Esterase (Normal: Negative) Urinalysis Gross Exam Microscopic Examination CULTURE, URINE CLEAN CATCH* Reviewed date:11/19/2016 16:58:53 Interpretation: Performing Lab: Notes/Report: CULTURE, URINE CLEAN CATCH 11/15/2016 18:03 Test, Urine Reviewed date:10/17/2016 16:36:27 Interpretation: Performing Lab: Notes/Report: Result Test, Urine neg NEGATIVE - NEGATIVE Urinalysis, Complete Dip Reviewed date:05/10/2016 09:22:51 Interpretation: Performing Lab: Notes/Report: Microscopic Examination Urine-Color dk yellow Appearance sl. cloudy Glucose (Normal: Negative) negative Bilirubin (Normal: Negative) negative Ketones ((Normal: Negative) negative Specific Dawson (Normal: 1.001-1.035) 1.030 Blood (Normal: Negative) trace pH (Normal: 4.5-8.0) 6.0 Protein (Normal: Negative-Trace) trace Urobilinogen,Semi-Qn (Normal : <1.0) 1+ Leukocytes (Normal : Negative) 2+ Nitrite, Urine (Normal: Negative) negative WBC Esterase (Normal: Negative) Urinalysis Gross Exam Microscopic Examination CULTURE, URINE, ROUTINE Reviewed date:05/13/2016 14:54:48 Interpretation: Performing Lab:, [place], [facility], [address], [place], [address] Brandon Mallory D.O., MPH Notes/Report: CULTURE, URINE, ROUTINE SEE NOTE Strep Quick Test ([facility] s ONLY) Reviewed date:04/13/2016 09:22:19 Interpretation: Performing Lab: Notes/Report: RESULT Negative NORMAL - NEGATIVE US ABDOMEN, COMPLETE Reviewed date:03/29/2016 15:15:53 Interpretation: Performing Lab: Notes/Report: CBC (INCLUDES DIFF/PLT) Reviewed date:02/19/2016 15:45:57 Interpretation: Performing Lab:, [facility], [address] [place], [address] Brandon Mallory D.O., MPH Notes/Report: ABSOLUTE BASOPHILS 4 cells/uL 0-200 cells/uL ABSOLUTE EOSINOPHILS 220 cells/uL 15-500 cells/uL ABSOLUTE LYMPHOCYTES 1338 cells/uL 0889-9901 cells/uL ABSOLUTE MONOCYTES 418 cells/uL 200-900 cells/uL ABSOLUTE NEUTROPHILS 1820 cells/uL 9898-3823 cells/uL BASOPHILS 0.1 % EOSINOPHILS 5.8 % HEMATOCRIT 36.6 % 34.0-46.0 % HEMOGLOBIN 12.5 g/dL 11.5-15.3 g/dL LYMPHOCYTES 35.2 % MCH 27.7 pg 25.0-35.0 pg MCHC 34.1 g/dL 31.0-36.0 g/dL MCV 81.1 fL 78.0-98.0 fL MONOCYTES 11.0 % MPV 10.2 fL 7.5-11.5 fL NEUTROPHILS 47.9 % PLATELET COUNT 193 Thousand/uL 140-400 Thousand/uL RDW 13.2 % 11.0-15.0 % RED BLOOD CELL COUNT 4.52 Million/uL 3.80-5.10 Million /uL WHITE BLOOD CELL COUNT 3.8 Thousand/uL 4.5-13.0 [place] nd/uL PATRICIA-BROWN VIRUS ANTIBODY PANEL Reviewed date:02/19/2016 15:31:04 Interpretation: Performing Lab:, [facility], [address] [place], [phone] Brandon Mallory D.O., MPH Notes/Report: EBV NUCLEAR AG (EBNA) AB (IGG) < OR = 0.90 EBV VIRAL CAPSID AG (VCA) AB (IGM) < OR = 0.90 EBV VIRAL CAPSID AG (VCA) AB (IGG) 1.83 INTERPRETATION: US ABDOMEN, COMPLETE Reviewed date:02/18/2016 16:04:52 Interpretation: Performing Lab: Notes/Report: Urinalysis Reviewed date:11/13/2015 08:24:32 Interpretation: Performing Lab: Notes/Report: Urine color yellow Appearance clear Glucose (Normal : Neg) neg Bilirubin (Normal : Neg) neg Ketones (Normal : Neg) neg Specific Dawson (Normal : 1.003-1.0259) 1.015 Blood (Normal : Neg) neg pH (Normal : 4.5-8.0) 7.5 Protein (Normal : Neg) neg Urobilinogen (Normal : less than 1) 0.2 Nitrate (Normal : Neg) neg Leukocytes Esterase (Normal : Neg) neg WBC (Normal : Neg) RBC (Normal : Neg) Epithelial Cells Bacteria (Normal : Neg) Mucus (Normal : Neg) Other REASON FOR VISIT No Information MEDICAL (GENERAL) HISTORY Type Description Date Medical History Depressive disorder, not elsewhere classified (resolved 12/26/2015) Medical History Cholelithiasis without cholecyst itis (11/2020) Surgical History gallbladder removal 07/2021 Hospitalization History Child x2 Hospitalization History Gall Stones Hospitalization History [facility] thcare (behavioral)3 days 08/2022 MENTAL STATUS No Information ASSESSMENTS Encounter Date Diagnosis Assessment Notes Treatment Notes Treatment Clinical Notes Aug, Depression with anxiety (ICD-10 - F41.8) Aug, Marijuana use (ICD-10 - F12.90) Aug, Low back pain at multiple sites (ICD-10 - M54.50) Aug, PTSD (post-traumatic stress disorder) (ICD-10 - F43.10) Aug, Other Keep appointmen t as planned with the counselor. Continue Lexapro and trazodone. Precautions were discussed in detail. Recheck in a few weeks to see how things are progressing. Return to the emergency room for severe mood alterations, thoughts of self-harm or harming others. Aug, Marijuana use (ICD-10 - F12.90) cautioned her use of this substance. Aug, Depression with anxiety (ICD-10 - F41.8) RECOMMENDATIONS given include: You are taking an SSRI medication which has an FDA warning against increasing suicidal thoughts, call right away if your anxiety/depression is getting worse, you having increasing suicidal thoughts, and/or a severe change in your mood. Please let us know if you are think you are having undesired side effects from your medication. Concerning precautions were discussed which include urgent symptoms. We have a physician law firm receptionist 24hrs/day for questions or recommendations. If you feel that you are having an emergency, call 911 or go to the emergency room. 13 Aug, 2022 Low back pain at multiple sites (ICD-10 - M54.50) will check xray, trial of muscle relaxers. Aug, Encounter for contraceptive planning (ICD-10 - Z30.09) completed order for nexplanon will reschedule for the procedure. May, 33 weeks gestation of (ICD-10 - Z3A.33) May, uterine contractions in third trimester, antepartum (ICD-10 - O47.03) Transfer to [facility], greatly appreciate assistance Betamethasone 12 mg IM at 1630 Magnesium 4 mg loading and 1 mg maintenance Penicillin for GBS unknown May, Nausea/vomiting in (ICD-10 - O21.9) May, Low lying placenta without hemorrhage, antepartum (ICD-10 - O44.40) Diagnosed earlier in , but on 03/09 and 05/06 ultrasound showed no previa May, Marijuana use (ICD-10 - F12.90) May, Antepartum placenta circumvallata (ICD-10 - O43.119) May, PTSD (post-traumatic stress disorder) (ICD-10 - F43.10) May, Anxiety (ICD-10 - F41.9) May, History of delivery, currently (ICD-10 - O09.899) May, Encounter for supervision of other normal , third trimester (ICD-10 - Z34.83) May, Nausea/vomiting in (ICD-10 - O21.9) May, contractions (ICD-10 - O47.00) May, Marijuana use (ICD-10 - F12.90) May, Anxiety (ICD-10 - F41.9) May, Other Routine OB care provided and precautions discussed. Go to the ER for any significant concerns.Monitor for any labor concerns.Follow up as discussed. May, Nausea/vomiting in (ICD-10 - O21.9) Apr, Encounter for supervision of other normal , third trimester (ICD-10 - Z34.83) Apr, Nausea and vomiting in (ICD-10 - O21.9) Apr, contractions (ICD-10 - O47.00) Apr, Marijuana use (ICD-10 - F12.90) Apr, PTSD (post-traumatic stress disorder) (ICD-10 - F43.10) Apr, Anxiety (ICD-10 - F41.9) Apr, Other Symptoms are st able. . She continues to use marijuana on a fairly regular basis to help control PTSD symptoms as well as chronic nausea. She previously had a medical marijuana card which is expiring soon. She has been unable to get this renewed because she is currently . She is aware of the unknown risks of THC use during . Despite the risk she feels the benefits outweight the risks and would like to continue her current therapy. . Routine OB care provided and precautions discussed. Go to the ER for any significant concerns.Monitor for any labor concerns.Follow up as discussed. I have renewed her medical marijuana card so she can continue to obtain this through safer more regulated options. Routine ob follow up as planned. Apr, Nausea and vomiting in (ICD-10 - O21.9) Symptoms are improved. Continue Zofran as needed to help control symptoms. Apr, Nausea/vomiting in (ICD-10 - O21.9) Apr, with 29 completed weeks gestation (ICD-10 - Z3A.29) Apr, contractions (ICD-10 - O47.00) Patient not in active labor. fibronectin was negative. Precautions were discussed in detail. She needs to return to labor and delivery for any new concerns of labor. Monitor for increasing contractions, increasing pelvic pressure, vaginal spotting or bleeding, leaking of fluid, or any other concerns of labor. Recommended to avoid sexual intercourse or any strenuous activity. Close follow up next week. Apr, History of labor (ICD-10 - Z87.51) Apr, Low lying placenta without hemorrhage, antepartum (ICD-10 - O44.40) Low lying placenta no longer present Apr, Marijuana use (ICD-10 - F12.90) Continues to use marijuana, positive on screening Apr, Antepartum placenta circumvallata (ICD-10 - O43.119) Apr, Low lying placenta without hemorrhage, antepartum (ICD-10 - O44.40) Apr, Antepartum placenta circumvallata (ICD-10 - O43.119) Apr, Encounter for supervision of other normal , third trimester (ICD-10 - Z34.83) Apr, Dermatitis (ICD-10 - L30.9) mild yeast dermatitis under her breasts trial of clotrimazole, recheck in 2 weeks. Apr, Other Routine OB care provided and precautions discussed. Go to the ER for any significant concerns.Monitor for any labor concerns.Follow up as discussed. Mar, Nausea/vomiting in (ICD-10 - O21.9) Mar, Encounter for supervision of other normal , second trimester (ICD-10 - Z34.82) Mar, Other 1hr GTT collected. patient left after get her lab completed and did not finish her clinical assessment. routine ob follow up. Feb, Nausea/vomiting in (ICD-10 - O21.9) Jan, Encounter for supervision of other normal , second trimester (ICD-10 - Z34.82) routine ob, will send order for US. recheck in 4 weeks. follow up as needed. Dec, Nausea/vomiting in (ICD-10 - O21.9) Dec, Encounter for supervision of other normal , first trimester (ICD-10 - Z34.81) .Routine OB care provided and precautions discussed.Go to the ER for any concerns of leaking fluid, vaginal bleeding.Follow up in 4 weeks. Dec, Nausea/vomiting in (ICD-10 - O21.9) Continue Zofran as needed for symptoms. Nov, Malaise (ICD-10 - R53.81) COVID and flu test were negative. Suspect viral illness. Recommend Tylenol as needed. Continue prochlorperazine and Zofran for nausea vomiting. Encouraged oral hydration. Follow up in a few days if no improvement. Routine recheck in 2 weeks. will check labs as listed Nov, Encounter for supervision of other normal , first trimester (ICD-10 - Z34.81) In office ultrasound was obtained which shows a single intrauterine , heart rate measured at 165 beats per minute, Hermleigh rump length measured and averaged at 1.38 cm. AUA 7 weeks and 5 days with an HERNANDEZ of 07/21/2022. Recheck in a few weeks. Nov, Viral URI (ICD-10 - J06.9) Nov, related nausea and vomiting, antepartum (ICD-10 - O21.9) Nov, Nausea/vomiting in (ICD-10 - O21.9) Oct, Nausea/vomiting in (ICD-10 - O21.9) July, History of gallstones (ICD-10 - Z87.19) Patient to follow-up with General surgery for gallstones found before . Patient reports gallstones and was told to follow up with GI to possibly have surgery in the future. July, Encounter for initial prescription of contraceptive pills (ICD-10 - Z30.011) control options were discussed in depth with pt. Pt has decided on minipill. Prescriptions sent. Pt understands that this does not protect her from STDs and only protects against if used and used correctly. test was negative today. May, premature rupture of membranes with onset of labor within 24 hours of rupture (ICD-10 - O42.019) May, with 34 completed weeks gestation (ICD-10 - Z3A.34) May, premature rupture of membranes with onset of labor within 24 hours of rupture (ICD-10 - O42.019) May, with 34 completed weeks gestation (ICD-10 - Z3A.34) May, premature rupture of membranes with onset of labor within 24 hours of rupture (ICD-10 - O42.019) May, with 34 completed weeks gestation (ICD-10 - Z3A.34) She has already received celestone and >34wk with SROM. Delivery of the is indicated. She has been started on ampicillin for GBS prophylaxis and azithromyin was given earlier this evening. She has advanced cervical dilation with labor. We have NICU team in progress, will plan to augment labor once they are close to arrival. May, premature rupture of membranes with onset of labor within 24 hours of rupture (ICD-10 - O42.019) May, with 34 completed weeks gestation (ICD-10 - Z3A.34) May, Low lying placenta without hemorrhage, antepartum (ICD-10 - O44.40) May, Low lying placenta without hemorrhage, antepartum (ICD-10 - O44.40) May, Low lying placenta without hemorrhage, antepartum (ICD-10 - O44.40) May, Marijuana use (ICD-10 - F12.90) May, Marijuana use (ICD-10 - F12.90) May, Marijuana use (ICD-10 - F12.90) May, Vaginal delivery (ICD-10 - O80) May, Vaginal delivery (ICD-10 - O80) May, Other Discharge as planned. Routine follow up in 6wk. May, Other Routine postpar [facility]. May, Other Progressing as expected. Continue labor augmentation. Continuous fluid monitoring. May, Other Admit to L/D fo r labor. Labor carepath. Continuous /toco monitoring. Serial nursing exams/assessments. May, Vaginal bleeding during , antepartum (ICD-10 - O46.90) Patient complained of sudden vaginal bleeding starting at 11:30 a.m., she states that she was sitting on the floor changing her baby and started having the bleeding come and came immediately to the hospital, she states that she had soaked through 2 pads. More detail shows a these pads were very small panty liners. After being monitored the patient's bleeding completely stopped, ultrasound showed no signs of active bleeding, monitoring of the baby showed reactive strip. Blood work shows hemoglobin of 12.4. Blood type is O positive, antibody screen done today is negative, no need for RhoGAM. Pt was given her first dose of celestone and she will receive the second in 24 hours. May, Low lying placenta with hemorrhage in third trimester, antepartum (ICD-10 - O44.53) Low lying placenta was a known problem during this , her previous ultrasound showed a low lying placenta within 1.8-1.9 cm from the asked with a posterior placenta. Ultrasound today shows: May, Hyperemesis affecting , antepartum (ICD-10 - O21.0) Patient states that she has hyperemesis gravidarum-she is taking ondansetron. She vomits about twice daily May, Cannabis abuse, daily use (ICD-10 - F12.10) Patient states that she uses at lease 3 hits of cannabis daily May, Other Patient was given a initial dose of Celestone, she will come back in 24 hours for a second dose. After the patient's blood work, ultrasound came back normal and her bleeding has stopped she was given the option to stay for observation and her second dose of Celestone or go home on bed rest and come back in 24 hours for her second dose of Celestone. She decided to go home. She understands the risks of possible contractions, possible bleeding. She understands that she will need to come back right away if she experiences bleeding or contractions or loss of fluid. She will be on bed rest, have plenty of fluids monitor for bleeding. She will follow up with her OB provider, Dr. Plascencia. May, Encounter for supervision of other normal , third trimester (ICD-10 - Z34.83) May, Low lying placenta without hemorrhage, antepartum (ICD-10 - O44.40) Apr, Vaginal discharge (ICD-10 - N89.8) Apr, Low lying placenta without hemorrhage, antepartum (ICD-10 - O44.40) Apr, Acute vaginitis (ICD-10 - N76.0) Apr, Other specified bacterial agents as the cause of diseases classified elsewhere (ICD-10 - B96.89) Apr, Encounter for supervision of other normal , third trimester (ICD-10 - Z34.83) Apr, Vaginal discharge (ICD-10 - N89.8) Apr, Yeast vaginitis (ICD-10 - B37.3) Apr, Encounter for supervision of other normal , third trimester (ICD-10 - Z34.83) OB precautions discussed. Monitor for movements. Go to the ER for any serious concerns such as leaking fluid, vaginal bleeding, abdominal trauma, repetitive labor type contractions, or any other significant concerns. Mar, Encounter for immunization (ICD-10 - Z23) Mar, Low lying placenta without hemorrhage, antepartum (ICD-10 - O44.40) Mar, Encounter for supervision of other normal , third trimester (ICD-10 - Z34.83) OB precautions discussed. Monitor for movements. Go to the ER for any serious concerns such as leaking fluid, vaginal bleeding, abdominal trauma, repetitive labor type contractions, or any other significant concerns. Mar, Encounter for supervision of other normal , second trimester (ICD-10 - Z34.82) OB precautions discussed. Monitor for movements. Go to the ER for any serious concerns such as leaking fluid, vaginal bleeding, abdominal trauma, repetitive labor type contractions, or any other significant concerns. Mar, Dysuria (ICD-10 - R30.0) Start on antibiotics and will obtain a urine culture. Feb, Constipation, unspecified constipation type (ICD-10 - K59.00) Feb, Nausea/vomiting in (ICD-10 - O21.9) Feb, Gastroesophageal reflux disease with esophagitis, unspecified whether hemorrhage (ICD-10 - K21.00) Feb, Encounter for supervision of other normal , second trimester (ICD-10 - Z34.82) OB precautions discussed. Monitor for movements. Go to the ER for any serious concerns such as leaking fluid, vaginal bleeding, abdominal trauma, repetitive labor type contractions, or any other significant concerns. Feb, Other Continue Zofran . Will add famotidine to help with any reflux symptoms. Send a prescription for Colace to help with constipation. Continue taking a vitamin. Routine follow up in 4 weeks. Jan, Vaginal discharge (ICD-10 - N89.8) Jan, Cervical cancer screening (ICD-10 - Z12.4) Jan, Vaginal spotting (ICD-10 - N93.9) Pap exam completed, cervix appears normal, no bleeding on exam. 10 Jan, 2021 Encounter for supervision of other normal , second trimester (ICD-10 - Z34.82) OB precautions discussed. Monitor for movements. Go to the ER for any serious concerns such as leaking fluid, vaginal bleeding, abdominal trauma, repetitive labor type contractions, or any other significant concerns. Jan, Encounter for supervision of other normal , second trimester (ICD-10 - Z34.82) OB precautions discussed. Monitor for movements. Go to the ER for any serious concerns such as leaking fluid, vaginal bleeding, abdominal trauma, repetitive labor type contractions, or any other significant concerns. Dec, Tinea corporis (ICD-10 - B35.4) Dec, Encounter for supervision of normal first , first trimester (ICD-10 - Z34.01) Dec, Itching (ICD-10 - L29.9) Dec, Other Routine ob. Recheck in 4 weeks. Nov, Gallstones (ICD-10 - K80.20) Nov, Nausea/vomiting in (ICD-10 - O21.9) Nov, Encounter for supervision of other normal , first trimester (ICD-10 - Z34.81) Nov, Other Established OB care. Provided medication for nausea and vomiting. Continue vitamin. Monitor gallbladder symptoms. Routine follow up in 4 weeks. Nov, Missed period (ICD-10 - N92.6) Nov, Breast pain (ICD-10 - N64.4) Nov, Left breast lump (ICD-10 - N63.20) Will order US w/ mammo if needed - bilateral given symptomatic both sides. F/u prn. 14 Nov, 2019 Well adolescent visit (ICD-10 - Z00.3) An EPSDT examination was performed and documented in the record. Growth and development were within normal limits. Routine care items were discussed. Routine follow up was scheduled. General health recommendations including diet and exercise were discussed. Discussed tobacco and alcohol avoidance. Discussed safe sex practices as well as control options. All of the patient''s and parental questions were answered. 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 Will use vaseline on the painful area for a few weeks to see if it can heal, and try for abstinence for a few weeks as well. Ruled out infection of urine, G/C, and with wet prep. Exam declined. Patient is too young for pap. Will f/u prn. Jan, Neuropathy (ICD-10 - G62.9) Dec, Encounter for surveillance of injectable contraceptive (ICD-10 - Z30.42) Dec, Neuropathy (ICD-10 - G62.9) Dec, Yeast infection (ICD-10 - B37.9) Dec, Encounter for contraceptive management (ICD-10 - Z30.9) Dec, Other We will increas e the gabapentin to 300 mg nightly, and follow-up in 6 weeks. 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 Recommended [id number] remedies for neuropathy, and that they do the research on this condition. Depo refilled. Diflucan for yeast infection. Nov, Musculoskeletal pain (ICD-10 - M79.18) Nov, Abdominal pain (ICD-10 - R10.9) Nov, Epigastric pain (ICD-10 - R10.13) Nov, Encounter for well adolescent visit with abnormal findings (ICD-10 - Z00.121) Nov, Depression with anxiety (ICD-10 - F41.8) Oct, Acute vaginitis (ICD-10 - N76.0) Oct, Acute non-recurrent maxillary sinusitis (ICD-10 - J01.00) Oct, Other Medication as directed. Patient welcome to return as needed or if incomplete resolution of symptoms Sep, Encounter for Depo-Provera contraception (ICD-10 - Z30.42) July, Diarrhea of presumed infectious origin (ICD-10 - R19.7) Mother and patient were explained that patient has a viral illness/ AGE. Treatment is symptomatic : drink plenty fluids like Pedialyte in small volume but often,handwashing , avoid juice intake/ greasy food. Warning symptoms of worsening infection, signs of dehydration as well as when to return for reevaluation or go to the ER explained, mother verbalizes understanding Jun, Encounter for immunization (ICD-10 - Z23) Jun, Encounter for management and injection of depo-Provera (ICD-10 - Z30.42) Depo administered today. Safe sex eduction provided Jun, Reflux gastritis (ICD-10 - K29.60) Medication refilled today, education provided regarding importance of continue avoiding caffeinated drinks, choocalte, spicy foods and triggers foods. Drink plenty water, eat fruits and vegetables. FU as needed Jun, Well adolescent visit (ICD-10 - Z00.129) Well Care - Tips for Teens: Care Instructions material was printed An EPSDT examination was performed and documented in the record. Growth ,behavior and development were within normal limits. Adolescents topics were discussed during the visit, discussion to transition to adult medicine. All parental and adolescent questions were addressed. 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 Jun, UTI symptoms (ICD-10 - R39.9) She has HPI, PE and some UA findings suggestive of UTI, I will start her on antibiotics, send urine for culture and order a Renal US since she has ongoing left side pain .I Mother will be notified when results are back. Importance of drinking plenty fluids, toilet time, no bubble baths explained. Warning symptoms and signs of worsening condition as well as when to return for reevaluation or go to the ER in case of an emergency explained,mother verbalizes understanding Jun, Cystitis with hematuria (ICD-10 - N30.91) May, Gastroenteritis (ICD-10 - K52.9) The patient likely has viral gastroenteritis. Symptomatic care discussed. We also discussed oral hydration. Warning signs of worsening condition discussed. The patient was instructed to call the clinic or go to the Emergency Room with concerns.,Gastroente ritis in Children: Care Instructions material was printed Apr, Fever and chills (ICD-10 - R50.9) Medications as directed. Return as needed Apr, Acute non-recurrent maxillary sinusitis (ICD-10 - J01.00) Mar, UTI symptoms (ICD-10 - R39.9) UA is no significant contributory to diagnose UTI but patient does have symptoms of UTI so I will send culture and will hold antibiotics at this time. Patient does also have history of chlamydia 2 years ago, treated but not t labs after treatment done. I will order GC and Chlamydia today and notify patient of results. I recommend continue drinking plenty of fluids, avoid bubble baths, safe sex precautions were discussed including importance of using condoms. Patient agrees on plan of care and verbalizes understanding. She request mother with lab results. Of note at the end of the visit she mentioned that she is having abdominal discomfort for mother was requesting to possible do some evaluation of her gallbladder. I will review again her gastroenterology clinic report provided a new referral if needed I recommended continue healthy eating including avoidance of drinks, spicy food greasy food. Patient verbalizes understanding of information provided Mar, Routine screening for STI (sexually transmitted infection) (ICD-10 - Z11.3) Mar, Encounter for contraceptive management (ICD-10 - Z30.9) Mar, Upper respiratory tract infection, unspecified type (ICD-10 - J06.9) The patient has pharyngitis. Treatments as documented in the chart. Warning signs of worsening infection discussed with the patient. They will call with concerns. Follow up will otherwise be as needed.,Sore Throat in Teens: Care Instructions material was printed Mar, Diarrhea, unspecified type (ICD-10 - R19.7) Pt has what is most likely a viral diarrhea. Encouraged fluids, BRAT diet and monitoring for s/s of dehydration. Treat fever with tylenol/motrin as appropriate. Return for any concerns. Feb, Acute non-recurrent maxillary sinusitis (ICD-10 - J01.00) Treatment as above. Symptomatic care for pain and fever explained, use saline nasal washes as needed, drink plenty fluids, handwashing. Warning signs of worsening infection, signs of respiratory distress as well as when to return for revaluation explained Dec, History of Helicobacter pylori infection (ICD-10 - Z86.19) I will order a test to see if infection is resolved. Further intervention depending on results. Encourage to continue healthy eating and avoidance of caffeinated drinks. Will follow up after results Dec, Vertigo (ICD-10 - R42) Most likely trigger by Vaso vagal event vs viral etiology URI. I will treat as above, encourage to drink plenty fluids,careful change positions. School note provided. 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 Mother has already getting an order of protection as issues are escalating. I offered a referral for counseling. They will discuss at home and call back if she wants to get referral. Dec, Depo-Provera contraceptive status (ICD-10 - Z30.42) Nov, Rib pain on left side (ICD-10 - R07.81) Musculoskeletal Chest Pain: Care Instructions material was printed NO x ray fracture or dislocation noted on Xray. I will send it to Radiology for review. pain maybe muscular etiology, if negative Radiology report I will send her for PT evaluation. Mother agrees on plan of care Nov, Reflux gastritis (ICD-10 - K29.60) Gastritis in Children: Care Instructions material was printed Again stressed importance of avoid caffeinated drinks, avoid milk, avoid greasy / fast / spicy food. drink water, plenty fruits, vegetables. Trial of Rantidine that has helped in the past will be provide while patient is changing dietary habits. Step father and mother ( who was present at end of visit) were explained of plan of care, they verbalizes understanding. Sep, Encounter for contraceptive management (ICD-10 - Z30.9) Jun, Encounter for contraceptive management (ICD-10 - Z30.9) May, UTI symptoms (ICD-10 - R39.9) May, Pain in female genitalia on intercourse (ICD-10 - N94.10) UA normal , reassurance provided. Education provided, she will call me back if pain persists and will provide a referral for Gynecology evaluation Mar, Encounter for contraceptive management (ICD-10 - Z30.9) Again kulwinder sex precautions were explained. She had unprotected sex yesterday, states not interested in Plan B but since wnats t go ahead with her Depo injection today. She was explained importance of complaint with apt dates for Depo injection and use of comdoms to decrease risk of STI . Patient and mother ( who patient wnated to be present for the visit verbalize understanding) Mar, Well adolescent visit (ICD-10 - Z00.129) An EPSDT examination was performed and documented in the record. Growth ,behavior and development were within normal limits. Adolescents topics were discussed during the visit, discussion to transition to adult medicine. All parental and adolescent questions were addressed. Routine follow up was scheduled.,Well Care - Tips for Teens: Care Instructions material was printed. Feb, Fever, unspecified fever cause (ICD-10 - R50.9) Feb, Other viral agents as the cause of diseases classified elsewhere (ICD-10 - B97.89) Flu , mono and strep tests are negative. Mother was explaining that she has a viral illness and treatment asymptomatic for pain and fever, drink plenty of fluids, saline nasal washes as needed, handwashing. Warning signs of worsening infection, signs of respiratory distress as well as when to return for reevaluation explained, mother verbalizes understanding. Feb, Other specified respiratory disorders (ICD-10 - J98.8) Feb, Reflux gastritis (ICD-10 - K29.60) Will prescribed some trial of ranitidine. Explained importance of eat fruits, vegetables, drink plenty water. Avoid fast food, avoid sodas, caffeinated drinks. Explained importance of avoid possible triggers food for pain, bring own lunch if needed. I will provide a referral for GI follow up evaluation. Explained warning signs of worsening condition as well as when to return for evaluation or go to ER, mother verbalizes understanding Jan, Impacted cerumen of right ear (ICD-10 - H61.21) Impacted cerumen removed with irrigation done by nurse. Patient tolerated well, on exam post irrigation noted still some wax on ear canal. Debrox refilled. Importance of avoidance of q tips or objects in ear canal explained, mother and patient verbalize understanding Jan, Right acute otitis media (ICD-10 - H66.91) Patient did not complete treatment, encourage to complete treatment as prescribed. Mother unsure how many pills left she had. I will consider to treat her , since mom is not sure if she only skip 1 day. FU after complete treatment for cerumen removal or early if needed Jan, Impacted cerumen of right ear (ICD-10 - H61.21) Jan, Encounter for initial prescription of Nexplanon (ICD-10 - Z30.017) paperwork filled out today, patient's mother present to sign will contact patient once device received to set up appt for insertion Jan, Acute suppurative otitis media of right ear without spontaneous rupture of tympanic membrane, recurrence not specified (ICD-10 - H66.001) Medications as directed Jan, Impacted cerumen of right ear (ICD-10 - H61.21) Dec, AGE (acute gastroenteritis) (ICD-10 - K52.9) The patient likely has viral gastroenteritis. Symptomatic care discussed. We also discussed oral hydration. Warning signs of worsening condition discussed. The patient was instructed to call the clinic or go to the Emergency Room with concerns. Dec, Flu-like symptoms (ICD-10 - R68.89) Dec, Encounter for surveillance of injectable contraceptive (ICD-10 - Z30.42) Dec, Coccygeal pain (ICD-10 - M53.3) Symptomatic care explained. FU as needed Dec, Urinary symptom or sign (ICD-10 - R39.9) UA normal, reassurance provided. Recommended testing of partner to STI/ treatment of chlamydia Nov, Urinary tract infection symptoms (ICD-10 - R39.9) UA is clear, she has some blood but she is spotting some. Reassurance provided, explained importance of drink plenty water and do not hold urine but void when needed. Avoid sex while having symptoms. I will order some STI screening today to r/u any urethritis, will contact her when results are back since she has h/o gastritis pain and is doing well with stomach pain. Nov, Routine screening for STI (sexually transmitted infection) (ICD-10 - Z11.3) Education provided, see above Nov, Other Learning About Control: The Implant material was printed Nov, Fatigue, unspecified type (ICD-10 - R53.83) I will order a CBC to rule out any anemia as reason for fatigue since she has history of heavy periods before she is started on Depo-Provera. Nov, Reflux gastritis (ICD-10 - K29.60) Again it was explained importance of a healthy diet and avoid greasy food excessive soreness caffeinated drinks. If there is no improvement with symptoms after starting a short course of ranitidine and dietary changes will refer for GI evaluation. She did have a GI evaluation in the past and was supposed to return for endoscopy if symptoms return, she did well while she was eating healthier and avoiding fast food. Mother agrees with plan of care and verbalizes understanding Gastroesophageal Reflux Disease (GERD): Care Instructions material was printed Oct, Urinary tract infection symptoms (ICD-10 - R39.9) Urinary Tract Infection in Female Teens: Care Instructions material was printed Oct, Urinary tract infection, site not specified (ICD-10 - N39.0) Treatment as above. Symptomatic care explained : drink plenty fluids, avoid bubble baths, no sex while she is on treatment and with symptoms. Will provide a school note to allow her to go to the bathroom as needed. Warning signs of worsening condition as well as when to return explained, mother and patient verbalizes understanding Sep, Encounter for contraceptive management, unspecified (ICD-10 - Z30.9) Sep, Contraceptive education (ICD-10 - Z30.09) Education provided regarding contraceptive methods, she opted for Dep Provera, side effects explained. She will return when she has her period to get Depo injection and test. FU as needed and for WCC Sep, Other Shot for Control: Care Instructions material was printed July, Closed nondisplaced fracture of fifth metatarsal bone of right foot, initial encounter (ICD-10 - S92.354A) July, Electric shock, initial encounter (ICD-10 - T75.4XXA) Apr, Dysuria (ICD-10 - R30.0) Apr, Common wart (ICD-10 - B07.8) Natural course explained, can try OTC treatments. FU as needed Plantar Warts in Teens: Care Instructions material was printed Apr, Urinary tract infection, site unspecified (ICD-10 - N39.0) Treatment as above, symptomatic care explained : drink plenty water, avoid sodas. No bubble baths. Will send urine for culture and notify of results. Mother will contact GI if symptoms persists despite of above treatment for reevaluation if needed. Phone number given. Mar, Sore throat (ICD-10 - J02.9) Mar, Other viral agents as the cause of diseases classified elsewhere (ICD-10 - B97.89) Mar, Acute upper respiratory infection, unspecified (ICD-10 - J06.9) Rapid strep is negative, explained mother that she has an URI, most likely viral etiology. Treatment is symptomatic for fever/ pain, use saline nasal washes as needed , drink plenty fluids. Handwashing importance explained. Warning signs of worsening condition, signs of respiratory distress as well as when to return explained, mother verbalizes understanding Mar, Spleen enlarged (ICD-10 - R16.1) Will repeat US today. Encourage to continue avoidance of spicy food and carbonate, caffeinated drinks. Keep apt with GI on 04/08. FU after GI apt, mother verbalizes understanding Mar, Epigastric abdominal pain (ICD-10 - R10.13) Jan, Acute gastritis without hemorrhage, unspecified gastritis type (ICD-10 - K29.00) Will change to Omeprazole. Education about importance of healthy eating habits, avoid caffeinate drinks, spicy food explained. Warning signs of worsening condition as well as when to return explained.Mother verbalizes understanding of information provided. Since pain is not resolving will order an abdominal US and also refer for GI evaluation Gastritis in Children: Care Instructions material was printed Jan, Left sided abdominal pain (ICD-10 - R10.9) Dec, Acute gastritis without hemorrhage, unspecified gastritis type (ICD-10 - K29.00) Treatment as above, importance of healthy eating habits, avoid caffeinate drinks, spicy food explained. Warning signs of worsening condition as well as when to return explained.Mother verbalizes understanding of information provided Gastritis in Children: Care Instructions material was printed Nov, Encounter for education about contraceptive use (ICD-10 - Z30.09) Referral will be provided , mom and patient prefer a female doctor for her. I also recommended restart therapy considering the behavior she has had using her phone in an inadequate manner. Mom declines at this time and says she will discuss this with her at home and call back as they also discussed the control . Patient is in agreement to see a hydrometeorology teacher to discuss all details of control Oct, Urinary tract infection symptoms (ICD-10 - R39.9) UA is normal, symptoms maybe related to a mild bladder spasm due to holding urine. Education provided regarding importance of avoiding holding urine for long periods of time. Warning signs of any worsening condition as well as when to return explained, mother verbalizes understanding Oct, Patella-femoral syndrome (ICD-10 - M22.2X9) Education provided regarding importance of PT exercises. She will try to see if exercising by her own help to allevite symptoms before sending her back to PT. 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 Apparently some family problem that she does not want to disclose and wants some help for her. Denies any feeling of hurting herself or someone else. Referral will be provided. To call if she has nay new concerns.Mom verbalizes udnerstanding of infomration provided. Nov, Knee clicking (ICD9-CM - 719.66) Will provide a referral for orthopedica evalaution. She has an ongoing knee problem related with her patela also possible ligament lesions. Today PE was normal but she states is becasue she has not done any activities. Mom verbalizes understanding of information provided. PLAN OF TREATMENT Treatment Notes Assessment Notes Clinical Notes Acute non-recurrent maxillar y sinusitis Treatment as above. Symptomatic care for pain and fever explained, use saline nasal washes as needed, drink plenty fluids, handwashing. Warning signs of worsening infection, signs of respiratory distress as well as when to return for revaluation explained Vertigo Most likely trig boy by Vaso vagal event vs viral etiology URI. I will treat as above, encourage to drink plenty fluids,careful change positions. School note provided. Explained warning signs of worsening symptoms as well as when to return for reevaluation, mother and patient verbalize understanding History of Helicobacter pylori infection I will order a test to see if infection is resolved. Further intervention depending on results. Encourage to continue healthy eating and avoidance of caffeinated drinks. Will follow up after results Encounter for management and injection of depo-Provera Depo administered today. Safe sex eduction provided Diarrhea of presumed infectious origin Mother and patient were explained that patient has a viral illness/ AGE. Treatment is symptomatic : drink plenty fluids like Pedialyte in small volume but often,handwashing, avoid juice intake/ greasy food. Warning symptoms of worsening infection, signs of dehydration as well as when to return for reevaluation or go to the ER explained, mother verbalizes understanding Reflux gastritis Gastritis in Childre n: Care Instructions material was printed Again stressed importance of avoid caffeinated drinks, avoid milk, avoid greasy / fast / spicy food. drink water, plenty fruits, vegetables. Trial of Rantidine that has helped in the past will be provide while patient is changing dietary habits. Step father and mother ( who was present at end of visit) were explained of plan of care, they verbalizes understanding. UTI symptoms UA is no signifi cant contributory to diagnose UTI but patient does have symptoms of UTI so I will send culture and will hold antibiotics at this time. Patient does also have history of chlamydia 2 years ago, treated but not t labs after treatment done. I will order GC and Chlamydia today and notify patient of results. I recommend continue drinking plenty of fluids, avoid bubble baths, safe sex precautions were discussed including importance of using condoms. Patient agrees on plan of care and verbalizes understanding. She request mother with lab results. Of note at the end of the visit she mentioned that she is having abdominal discomfort for mother was requesting to possible do some evaluation of her gallbladder. I will review again her gastroenterology clinic report provided a new referral if needed I recommended continue healthy eating including avoidance of drinks, spicy food greasy food. Patient verbalizes understanding of information provided Pain in female genitalia on intercourse UA normal , reassurance provided. Education provided, she will call me back if pain persists and will provide a referral for Gynecology evaluation with 34 completed weeks gestation She has already received celestone and >34wk with SROM. Delivery of the is indicated. She has been started on ampicillin for GBS prophylaxis and azithromyin was given earlier this evening. She has advanced cervical dilation with labor. We have NICU team in progress, will plan to augment labor once they are close to arrival. Nausea and vomiting in Symptoms are improved. Continue Zofran as needed to help control symptoms. Nausea/vomiting in Continue Zo paige as needed for symptoms. Encounter for supervision of other normal , first trimester .Routine OB care provided and precautions discussed.Go to the ER for any concerns of leaking fluid, vaginal bleeding.Follow up in 4 weeks. Low back pain at multiple sites will check xray, trial of muscle relaxers. Encounter for supervision of other normal , third trimester OB precautions discussed. Monitor for movements. Go to the ER for any serious concerns such as leaking fluid, vaginal bleeding, abdominal trauma, repetitive labor type contractions, or any other significant concerns. Encounter for supervision of other normal , third trimester OB precautions discussed. Monitor for movements. Go to the ER for any serious concerns such as leaking fluid, vaginal bleeding, abdominal trauma, repetitive labor type contractions, or any other significant concerns. Hyperemesis affecting , antepartum Patient states that she has hyperemesis gravidarum-she is taking ondansetron. She vomits about twice daily Rib pain on left side Musculoskeletal Ch est Pain: Care Instructions material was printed NO x ray fracture or dislocation noted on Xray. I will send it to Radiology for review. pain maybe muscular etiology, if negative Radiology report I will send her for PT evaluation. Mother agrees on plan of care Vaginal spotting Pap exam completed, cervix appears normal, no bleeding on exam. UTI symptoms She has HPI, PE and some UA findings suggestive of UTI, I will start her on antibiotics, send urine for culture and order a Renal US since she has ongoing left side pain .I Mother will be notified when results are back. Importance of drinking plenty fluids, toilet time, no bubble baths explained. Warning symptoms and signs of worsening condition as well as when to return for reevaluation or go to the ER in case of an emergency explained,mother verbalizes understanding contractions Patient not in active labor. fibronectin was negative. Precautions were discussed in detail. She needs to return to labor and delivery for any new concerns of labor. Monitor for increasing contractions, increasing pelvic pressure, vaginal spotting or bleeding, leaking of fluid, or any other concerns of labor. Recommended to avoid sexual intercourse or any strenuous activity. Close follow up next week. Knee clicking Will provide a refer ral for orthopedica evalaution. She has an ongoing knee problem related with her patela also possible ligament lesions. Today PE was normal but she states is becasue she has not done any activities. Mom verbalizes understanding of information provided. Emotional problem of childhood Mom states she has some emotional issues that she wants to addreess with counseling. Apparently some family problem that she does not want to disclose and wants some help for her. Denies any feeling of hurting herself or someone else. Referral will be provided. To call if she has nay new concerns.Mom verbalizes udnerstanding of infomration provided. Well adolescent visit An EPSDT examinati on was performed and documented in the record. Growth and development were within normal limits. Routine care items were discussed. Routine follow up was scheduled. General health recommendations including diet and exercise were discussed. Discussed tobacco and alcohol avoidance. Discussed safe sex practices as well as control options. All of the patient''s and parental questions were answered. Vulvodynia, unspecified Recommended safe sex practices and lubrication. Will use vaseline on the painful area for a few weeks to see if it can heal, and try for abstinence for a few weeks as well. Ruled out infection of urine, G/C, and with wet prep. Exam declined. Patient is too young for pap. Will f/u prn. Diarrhea, unspecified type Pt has what i s most likely a viral diarrhea. Encouraged fluids, BRAT diet and monitoring for s/s of dehydration. Treat fever with tylenol/motrin as appropriate. Return for any concerns. Encounter for initial prescription of Nexplanon paperwork filled out today, patient's mother present to sign will contact patient once device received to set up appt for insertion Common wart Natural course expla ined, can try OTC treatments. FU as needed Plantar Warts in Teens: Care Instructions material was printed Right acute otitis media Patient did not complete treatment, encourage to complete treatment as prescribed. Mother unsure how many pills left she had. I will consider to treat her , since mom is not sure if she only skip 1 day. FU after complete treatment for cerumen removal or early if needed Reflux gastritis Will prescribed some trial of ranitidine. Explained importance of eat fruits, vegetables, drink plenty water. Avoid fast food, avoid sodas, caffeinated drinks. Explained importance of avoid possible triggers food for pain, bring own lunch if needed. I will provide a referral for GI follow up evaluation. Explained warning signs of worsening condition as well as when to return for evaluation or go to ER, mother verbalizes understanding Reflux gastritis Again it was explain ed importance of a healthy diet and avoid greasy food excessive soreness caffeinated drinks. If there is no improvement with symptoms after starting a short course of ranitidine and dietary changes will refer for GI evaluation. She did have a GI evaluation in the past and was supposed to return for endoscopy if symptoms return, she did well while she was eating healthier and avoiding fast food. Mother agrees with plan of care and verbalizes understanding Gastroesophageal Reflux Disease (GERD): Care Instructions material was printed Acute gastritis without hemorrhage, unspecified gastritis type Treatment as above, importance of healthy eating habits, avoid caffeinate drinks, spicy food explained. Warning signs of worsening condition as well as when to return explained.Mother verbalizes understanding of information provided Gastritis in Children: Care Instructions material was printed Fever and chills Medications as direc mirian. Return as needed Contraceptive education Education provid ed regarding contraceptive methods, she opted for Dep Provera, side effects explained. She will return when she has her period to get Depo injection and test. FU as needed and for [facility] Gastroenteritis The patient likely h as viral gastroenteritis. Symptomatic care discussed. We also discussed oral hydration. Warning signs of worsening condition discussed. The patient was instructed to call the clinic or go to the Emergency Room with concerns.,Gastroenteritis in Children: Care Instructions material was printed Urinary tract infection symptoms UA is normal, symptoms maybe related to a mild bladder spasm due to holding urine. Education provided regarding importance of avoiding holding urine for long periods of time. Warning signs of any worsening condition as well as when to return explained, mother verbalizes understanding Acute gastritis without hemorrhage, unspecified gastritis type Will change to Omeprazole. Education about importance of healthy eating habits, avoid caffeinate drinks, spicy food explained. Warning signs of worsening condition as well as when to return explained.Mother verbalizes understanding of information provided. Since pain is not resolving will order an abdominal US and also refer for GI evaluation Gastritis in Children: Care Instructions material was printed Urinary tract infection symptoms Urinary Tract Infection in Female Teens: Care Instructions material was printed Encounter for education abou t contraceptive use Referral will be provided , mom and patient prefer a female doctor for her. I also recommended restart therapy considering the behavior she has had using her phone in an inadequate manner. Mom declines at this time and says she will discuss this with her at home and call back as they also discussed the control . Patient is in agreement to see a hydrometeorology teacher to discuss all details of control Upper respiratory tract infection, unspecified type The patient has pharyngitis. Treatments as documented in the chart. Warning signs of worsening infection discussed with the patient. They will call with concerns. Follow up will otherwise be as needed.,Sore Throat in Teens: Care Instructions material was printed Encounter for contraceptive management Again kulwinder sex precautions were explained. She had unprotected sex yesterday, states not interested in Plan B but since wnats t go ahead with her Depo injection today. She was explained importance of complaint with apt dates for Depo injection and use of comdoms to decrease risk of STI . Patient and mother ( who patient wnated to be present for the visit verbalize understanding) AGE (acute gastroenteritis) The patient likely has viral gastroenteritis. Symptomatic care discussed. We also discussed oral hydration. Warning signs of worsening condition discussed. The patient was instructed to call the clinic or go to the Emergency Room with concerns. Emotional disturbance of adolescence Continue management with [facility]. Urinary tract infection symptoms UA is clear, she has some blood but she is spotting some. Reassurance provided, explained importance of drink plenty water and do not hold urine but void when needed. Avoid sex while having symptoms. I will order some STI screening today to r/u any urethritis, will contact her when results are back since she has h/o gastritis pain and is doing well with stomach pain. Low lying placenta without hemorrhage, antepartum Low lying placenta no longer present Coccygeal pain Symptomatic care exp lained. FU as needed Fatigue, unspecified type I will order a CBC to rule out any anemia as reason for fatigue since she has history of heavy periods before she is started on Depo-Provera. Spleen enlarged Will repeat US today . Encourage to continue avoidance of spicy food and carbonate, caffeinated drinks. Keep apt with GI on 04/08. FU after GI apt, mother verbalizes understanding Impacted cerumen of right ear Impacted c erumen removed with irrigation done by nurse. Patient tolerated well, on exam post irrigation noted still some wax on ear canal. Debrox refilled. Importance of avoidance of q tips or objects in ear canal explained, mother and patient verbalize understanding Low lying placenta without hemorrhage, antepartum Diagnosed earlier in , but on 03/09 and 05/06 ultrasound showed no previa Encounter for supervision of other normal , second trimester OB precautions discussed. Monitor for movements. Go to the ER for any serious concerns such as leaking fluid, vaginal bleeding, abdominal trauma, repetitive labor type contractions, or any other significant concerns. Cannabis abuse, daily use Gris garcia states that she uses at lease 3 hits of cannabis daily Encounter for supervision of other normal , second trimester OB precautions discussed. Monitor for movements. Go to the ER for any serious concerns such as leaking fluid, vaginal bleeding, abdominal trauma, repetitive labor type contractions, or any other significant concerns. Depression with anxiety RECOMMENDATIONS given include: You are taking an SSRI medication which has an FDA warning against increasing suicidal thoughts, call right away if your anxiety/depression is getting worse, you having increasing suicidal thoughts, and/or a severe change in your mood. Please let us know if you are think you are having undesired side effects from your medication. Concerning precautions were discussed which include urgent symptoms. We have a physician law firm receptionist 24hrs/day for questions or recommendations. If you feel that you are having an emergency, call 911 or go to the emergency room. Acute upper respiratory infection, unspecified Rapid strep is negative, explained mother that she has an URI, most likely viral etiology. Treatment is symptomatic for fever/ pain, use saline nasal washes as needed , drink plenty fluids. Handwashing importance explained. Warning signs of worsening condition, signs of respiratory distress as well as when to return explained, mother verbalizes understanding Marijuana use cautioned her use of this substance. Encounter for contraceptive planning completed order for nexplanon will reschedule for the procedure. Acute suppurative otitis media of right ear without spontaneous rupture of tympanic membrane, recurrence not specified Medications as directed Well adolescent visit Well Care - Tips f or Teens: Care Instructions material was printed An EPSDT examination was performed and documented in the record. Growth ,behavior and development were within normal limits. Adolescents topics were discussed during the visit, discussion to transition to adult medicine. All parental and adolescent questions were addressed. Routine follow up was scheduled Encounter for supervision of other normal , second trimester routine ob, will send order for US. recheck in 4 weeks. follow up as needed. Urinary tract infection, sit e unspecified Treatment as above, symptomatic care explained : drink plenty water, avoid sodas. No bubble baths. Will send urine for culture and notify of results. Mother will contact GI if symptoms persists despite of above treatment for reevaluation if needed. Phone number given. Marijuana use Continues to use marijuana, positive on screening Vaginal bleeding during , antepartum Patient complained of sudden vaginal bleeding starting at 11:30 a.m., she states that she was sitting on the floor changing her baby and started having the bleeding come and came immediately to the hospital, she states that she had soaked through 2 pads. More detail shows a these pads were very small panty liners. After being monitored the patient's bleeding completely stopped, ultrasound showed no signs of active bleeding, monitoring of the baby showed reactive strip. Blood work shows hemoglobin of 12.4. Blood type is O positive, antibody screen done today is negative, no need for RhoGAM. Pt was given her first dose of celestone and she will receive the second in 24 hours. Dermatitis mild yeast derma titis under her breasts trial of clotrimazole, recheck in 2 weeks. Dysuria Start on antibiotics and will obtain a urine culture. Emotional disturbance of adolescence She was tearful at end of visit and disclosed some stress at school with another girl. Mother has already getting an order of protection as issues are escalating. I offered a referral for counseling. They will discuss at home and call back if she wants to get referral. History of gallstones Patient to follow- up with General surgery for gallstones found before . Patient reports gallstones and was told to follow up with GI to possibly have surgery in the future. Low lying placenta with hemorrhage in third trimester, antepartum Low lying placenta was a known problem during this , her previous ultrasound showed a low lying placenta within 1.8-1.9 cm from the asked with a posterior placenta. Ultrasound today shows: Reflux gastritis Medication refi lled today, education provided regarding importance of continue avoiding caffeinated drinks, choocalte, spicy foods and triggers foods. Drink plenty water, eat fruits and vegetables. FU as needed Malaise COVID and flu test w ere negative. Suspect viral illness. Recommend Tylenol as needed. Continue prochlorperazine and Zofran for nausea vomiting. Encouraged oral hydration. Follow up in a few days if no improvement. Routine recheck in 2 weeks. will check labs as listed Encounter for initial prescription of contraceptive pills control options were discussed in depth with pt. Pt has decided on minipill. Prescriptions sent. Pt understands that this does not protect her from STDs and only protects against if used and used correctly. test was negative today. Encounter for supervision of other normal , first trimester In office ultrasound was obtained which shows a single intrauterine , heart rate measured at 165 beats per minute, Hermleigh rump length measured and averaged at 1.38 cm. AUA 7 weeks and 5 days with an HERNANDEZ of 07/21/2022. Recheck in a few weeks. Other viral agents as the cause of diseases classified elsewhere Flu , mono and strep tests are negative. Mother was explaining that she has a viral illness and treatment asymptomatic for pain and fever, drink plenty of fluids, saline nasal washes as needed, handwashing. Warning signs of worsening infection, signs of respiratory distress as well as when to return for reevaluation explained, mother verbalizes understanding. Patella-femoral syndrome Education provi ded regarding importance of PT exercises. She will try to see if exercising by her own help to allevite symptoms before sending her back to PT. Hand outs provided Well adolescent visit An EPSDT e xamination was performed and documented in the record. Growth ,behavior and development were within normal limits. Adolescents topics were discussed during the visit, discussion to transition to adult medicine. All parental and adolescent questions were addressed. Routine follow up was scheduled.,Well Care - Tips for Teens: Care Instructions material was printed. Encounter for supervision of other normal , second trimester OB precautions discussed. Monitor for movements. Go to the ER for any serious concerns such as leaking fluid, vaginal bleeding, abdominal trauma, repetitive labor type contractions, or any other significant concerns. Routine screening for STI (sexually transmitted infection) Education provided, see above Urinary symptom or sign UA normal, reass urance provided. Recommended testing of partner to STI/ treatment of chlamydia Encounter for supervision of other normal , second trimester OB precautions discussed. Monitor for movements. Go to the ER for any serious concerns such as leaking fluid, vaginal bleeding, abdominal trauma, repetitive labor type contractions, or any other significant concerns. Left breast lump Will order US w/ tiffany mo if needed - bilateral given symptomatic both sides. F/u prn. uterine contractions in third trimester, antepartum Transfer to [facility], greatly appreciate assistance Betamethasone 12 mg IM at 1630 Magnesium 4 mg loading and 1 mg maintenance Penicillin for GBS unknown Urinary tract infection, sit e not specified Treatment as above. Symptomatic care explained : drink plenty fluids, avoid bubble baths, no sex while she is on treatment and with symptoms. Will provide a school note to allow her to go to the bathroom as needed. Warning signs of worsening condition as well as when to return explained, mother and patient verbalizes understanding Referrals Referral Date Details 2014-02-28 2014-02-28, Anabela on of some emotional issues h/o of some family problems that mom wants to address with a counselor, [facility] 2013-12-17 2013-12-17, Dr Jacqui doyle's office : Evaluation of knee swelling and pain with exercise and popping of the patella and patella felt like lock up., Stephen Ferrell Mom is wiling her to have a gynecological exam and start control, due to some behavior she had had, Mirna Akers Patient with chronic abdominal pain ( epigastric/ LLQ) , partially improved on Ranitidine and dietary changes Appt 04/08/16, Rubina Streeter 2016-08-17 2016-08-17, Evaluate and Treat. Please make apt for next week if possible, Abel Thomas Seen before there, o ngoing episodes of abdominal pain, some reflux symptoms faxed 02-25, Danuta Merritt 2018-02-13 2018-02-13, please e anisha and treat, [facility] Gallstones faxed-Ruy Mccoy 2022-09-09 2022-09-09, *mood sy mptoms faxed, [facility] Next Appt Details 3 Weeks Reason:recheck Provider Name:Sanjeev Plascencia , 2022-09-20 02:00:00 PM, [address] [place], [id number], Provider Name:Sanjeev Plascencia , 2022-09-27 09:15:00 AM, [address] [place], [id number], Follow Up:3 Weeksrecck Insurance Providers Payer Name Payer Address Payer Phone Insured Name Patient Relationship to Insured Coverage Start Date Coverage End Date Subscriber Number Group Number MEDICAID [employer] [address] [facility] [id number] [place] Self - patient is the insured 3 [id number] MEDICATIONS ADMINISTERED Medication Instructions Date of Administration Dosag e Depo-Provera Contraceptive (pt's own med) Sep, 150 mg Depo-Provera Contraceptive (pt's own med) Dec, 1 mL Depo-Provera Contraceptive (pt's own med) Dec, 150 mg Depo-Provera Contraceptive (pt's own med) Sep, 150
--- OUTSIDE RECORDS SUMMARY | 2022-09-14 07:07 | XMS_ITS | Continuity of Care Document ---
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 Name Role Phone MISC, DICTATING PHYSICIAN Primary Care Physician Encounter ARW_TANYA_ ([place]) [id number] Date(s): 05/30/22 - 06/02/[address] [address]- Discharge Disposition: DISCHARGED HOME/SELF CARE Attending Physician: ARACELI KANG DO Admitting Physician: ARACELI KANG DO Reason for Visit 06/01 @1521 Allergies, Adverse Reactions, Alerts No Known Allergies Assessment and Plan Extracted from: Title:Clinical Summary Author:Fartun Cote Rn Date:06/02/22 [facility] [address]??[place]??[facility],??[place]??[address] Fax:??[phone] Clinical Discharge Summary PATIENT INFORMATION Name: IVETT AGUIRRE : 2000 [employer] Admitting Physician: ARACELI KANG DO Attending Physician: ARACELI KANG DO PCP: GEORGINA, DICTATING PHYSICIAN NWAR Discharge Diagnosis: PATIENT EDUCATION INFORMATION Instructions: Baby Blues; Care After Vaginal Delivery Medication Leaflets ferrous sulfate, ibuprofen Follow-up Future Appointments ?No Future Appointments Scheduled MEDICATION LIST Active Medication Orders Prior to Transfer: Order Name Order Details PREMIX oxytocin 30 unit(s) 30 unit(s) + Sodium Chloride 0.9% 500 mL 500 mL, IV 1 hr, 500 mL/hr, 500, 06/01/22 16:40:00 CDT, -1, Routine, 06/01/22 16:40:00 CDT, Constant Indicator, LVP, 1 hr, 0, [id number], 2, 0, [facility], [place] IV Fluids , 4160.00, 500.00, [address] [place] [address], 1.65, m2 PREMIX oxytocin 30 unit(s) 30 unit(s) [2 milLIunit/min] + Sodium Chloride 0.9% 500 mL 500 mL, IV 250 hr, 2 mL/hr, 30 day(s), 500, 06/01/22 13:22:00 CDT, 07/01/22 13:21:00 CDT, -1, Routine, 06/01/22 13:22:00 CDT, Physician Stop, Constant Indicator, LVP, 24 hr, 0, [id number], 2, 0, [facility], [place] IV Fluids , 4160.00, 500.00, 10 Stefan... PREMIX oxytocin 30 unit(s) 30 unit(s) [500 milLIunit/min] + Sodium Chloride 0.9% 500 mL 500 mL, IV 1 hr, 500 mL/hr, 500, 06/01/22 16:40:00 CDT, -1, Routine, 06/01/22 16:40:00 CDT, Constant Indicator, LVP, 1 hr, 0, [id number], 2, 0, [facility], [place] IV Fluids , 4160.00, 500.00, [address] [place] [address], 1.65, m2 acetaminophen 325 mg Tab 650 mg 2 tab(s), Oral, -1, [id number] PRN headache, Routine, 06/01/22 8:14:00 CDT, 06/01/22 8:14:00 CDT, UD, 1, -1, [facility], [place] OTC , 7.00, 1.10, [address] [place] [address], 06/01/22 8:14:00 CDT acetaminophen 325 mg Tab 650 mg 2 tab(s), Oral, -1, q4H PRN abdominal pain, Routine, 06/01/22 16:40:00 CDT, 06/01/22 16:40:00 CDT, UD, 1, -1, [place] OTC , 7.00, 1.10, [address] [place] [address], 06/01/22 16:40:00 CDT benzocaine-LEVOmenthol topical 20%-0.5% [place]-Top 1 spray(s), Topical, -1, As Indicated PRN perineal discomfort, 0, 06/01/22 16:46:00 CDT, 06/01/22 16:46:00 CDT, BULK, 0, 1, 0, 0, [facility] [place] Topicals/Inhalers, 45.5, [id number] calcium carbonate 500 mg Tab-Chew 1,000 mg 2 tab(s), Chewed, -1, [id number] PRN indigestion, Routine, 06/01/22 14:42:00 CDT, 06/01/22 14:42:00 CDT, UD, 1, -1, [facility] [place] [facility]TC , 1.56, 0.15, [address] [place] [address], 06/01/22 14:42:00 CDT diphenhydrAMINE 25 mg Cap 25 mg 1 cap(s), Oral, -1, q8H PRN itching, Routine, 06/01/22 16:40:00 CDT, 06/01/22 16:40:00 CDT, UD, 1, -1, [facility] [place] OTC , 1.56, 0.04, [address] [place] [address], 06/01/22 16:40:00 CDT docusate 100 mg 1 cap(s), Oral, BID, PRN for constipation, 20 cap(s), 0, 0, 06/02/22 9:11:00 CDT, Maintenance, [address] [place] [address], [id number], 1 cap(s) Oral BID,PRN:for constipation... ferrous sulfate 325 mg Tab 325 mg 1 tab(s), Oral, -1, 06/02/22 20:00:00 CDT, UD, 1, -1, [facility], [place] OTC , 1.56, 0.07, [address] [place] [address], 06/01/22 16:40:00 CDT ferrous sulfate 325 mg Tab 325 mg 1 tab(s), Oral, -1, 06/02/22 8:00:00 CDT, UD, 1, -1, [facility], [place] OTC , 1.56, 0.07, [address] [place] [address], 06/01/22 16:40:00 CDT ferrous sulfate 325 mg Tab 325 mg 1 tab(s), Oral, -1, BID, Routine, 06/01/22 20:00:00 CDT, 06/01/22 20:00:00 CDT, UD, 1, -1, [facility], [place] OTC , 1.56, 0.07, [address] [place] [address], 06/01/22 16:40:00 CDT ferrous sulfate 325 mg Tab 325 mg 1 tab(s), Oral, -1, 06/03/22 8:00:00 CDT, UD, 1, -1, [facility], [place] OTC , 1.56, 0.07, [address] [place] [address], 06/01/22 16:40:00 CDT ibuprofen 800 mg 1 tab(s), Oral, q6H, 40 tab(s), 0, 0, 06/02/22 9:11:00 CDT, Acute, 06/17/22 11:15:00 CDT, [address] [place] [address], Route to Pharmacy Electronically, [facility] #[id number], 1 tab(s) Oral q6H, 164, cm, 05/30/22 19:38:... ibuprofen 800 mg Tab 800 mg 1 tab(s), Oral, -1, q8H PRN pain, Routine, 06/01/22 16:40:00 CDT, 06/01/22 16:40:00 CDT, UD, 1, -1, [facility] [place] Oral - Prescription , 2.50, 0.40, [address] [place] [address], 06/01/22 16:40:00 CDT magnesium sulfate 20 gm [2 gm/hr] + Sterile Water Premix Diluent 500 mL 500 mL, IV 10 hr, 50 mL/hr, 500, 05/31/22 14:58:00 CDT, -1, Routine, 05/31/22 14:58:00 CDT, Constant Indicator, LVP, 10 hr, 0, [id number], 2, 0, [facility], [place] IV Fluids , 104.00, 5.94, [address] [place] [address], 1.65, m2 measles/mumps/rubella virus vaccine Powder-Inj; 0.5 mL 0.5 mL, Subcutaneous, -1, One Time Unscheduled, Routine, 06/01/22 17:00:00 CDT, 30 day(s), 06/01/22 17:00:00 CDT, Physician Stop, 07/01/22 16:59:00 CDT, INJ, 1, [facility], [place] Injectable - Biologics , 506.00, 60.79, [address] [place],... ondansetron 4 mg 1 tab(s), Oral, q8H, PRN as needed for nausea/vomiting, 0, 05/30/22 19:40:00 CDT, Maintenance, Tab ondansetron 4 mg/2 mL Soln-Inj 4 mg 2 mL, IV Push, -1, q8H PRN nausea/vomiting, Routine, 06/01/22 16:40:00 CDT, 06/01/22 16:40:00 CDT, INJ, 1, -1, [facility], [place] Injectable - General , 104.00, 0.72, [address] [place] [address], 06/01/22 16:40:00 CDT ondansetron 4 mg/2 mL Soln-Inj 4 mg 2 mL, IV Push, -1, q8H PRN nausea/vomiting, Routine, 06/01/22 6:21:00 CDT, 06/01/22 6:21:00 CDT, INJ, 1, -1, [facility] [place] Injectable - General , 104.00, 0.72, [address] [place] [address], 06/01/22 6:21:00 CDT multivitamins & minerals + iron 27 mg + folic acid 0.8 mg Tab 1 tab(s), Oral, -1, 06/03/22 9:00:00 CDT, UD, 1, [place] OTC , 6.50, 1.00, [address] [place] [address] multivitamins & minerals + iron 27 mg + folic acid 0.8 mg Tab 1 tab(s), Oral, -1, 06/02/22 9:00:00 CDT, UD, 1, [place] OTC , 6.50, 1.00, [address] [place] [address] multivitamins & minerals + iron 27 mg + folic acid 0.8 mg Tab 1 tab(s), Oral, -1, Daily, Routine, 06/02/22 9:00:00 CDT, 06/02/22 9:00:00 CDT, UD, 1, [place] OTC , 6.50, 1.00, [address] [place] [address] simethicone 80 mg Tab-Chew 120 mg 1.5 tab(s), Oral, -1, QID (PC and Bedtime) PRN gas, 0, Routine, 06/01/22 16:40:00 CDT, 06/01/22 16:40:00 CDT, UD, 0, 1, -1, 0, [place] OTC , 12.5, 2, [address] [place] [address] tetanus/diphth/pertuss (Tdap) adult/adol 5 units-2 units-15.5 mcg/0.5 mL Susp- Inj 0.5 mL, IM, -1, One Time Unscheduled, Routine, 06/01/22 17:00:00 CDT, 30 day(s), 06/01/22 17:00:00 CDT, Physician Stop, 07/01/22 16:59:00 CDT, INJ, 1, [facility], [place] Injectable - Biologics , 455.00, 54.65, [address] [place] [address] Patient? s Active Home Medication List Discharge: [facility] #[id number], [address] [address] [address] [place], [place] [id number], [phone] docusate (Colace 100 mg oral capsule) 1 capsule(s) Oral twice a day as needed for constipation. Refills: 0. ibuprofen (ibuprofen 800 mg oral tablet) 1 Tab(s) Oral every 6 hours. Refills: 0. Other Medications ondansetron (Zofran 4 mg oral tablet) 1 Tab(s) Oral every 8 hours as needed as needed for nausea/vomiting. OrdersOrder Name Order Details Extracted from: Title:OB Admission H&P L&D/ PreOp * Author:ANTHONY CAREY MD Date:05/30/22 Impression and Plan IUP 33w2d, labor. Epidural if desires. pt was started on MgSO4 and given steroids in [place]. Will give 2nd dose of steroids at 12 hours if not delivered. Medications docusate (Colace 100 mg oral capsule) Status: Ordered Start Date: 06/02/22 1 capsule(s) Oral twice a day as needed for constipation. Refills: 0. Ordering provider: HOLLY HARRELL [facility] #[id number] [address] [address] [address] [place], [place] [id number] ibuprofen (ibuprofen 800 mg oral tablet) Status: Ordered Start Date: 06/02/22 Stop Date: 06/17/22 1 Tab(s) Oral every 6 hours. Refills: 0. Ordering provider: HOLLY HARRELL [facility] #[id number] [address] [address] [address] [place], [place] [phone] ondansetron (Zofran 4 mg ora l tablet) Status: Ordered Start Date: 05/30/22 1 Tab(s) Oral every 8 hours as needed as needed for nausea/vomiting. Procedures Procedure Date Related Diagnosis Body Site Status Cholecystectomy Completed Results Laboratory List Name Date .Differential Automated 06/02/22 Complete Blood Count w/Diff Auto (CBC w/ Diff Auto) 06/02/22 RhIG Eligibility 06/01/22 ABORh Retype 05/30/22 Urine Drug Screen 13A Qual Panel Manual (UDS 13A Qual Panel Manual) 05/30/22 .Differential Automated 05/30/22 ABORh 05/30/22 Antibody Screen Gel 05/30/22 COVID19 SARS Ag CINDY 05/30/22 Complete Blood Count w/Diff Auto (CBC w/ Diff Auto) 05/30/22 06/02/22 Test Result Reference Range Specimen Source [facility] WBC 22.4 x10^3/mcL (Normal is 4.0-1 1.0 x10^3/mcL) Blood [facility] RBC 3.23 x10^12/L (Normal is 3.90-5.03 x10^12/L) Blood [facility] Hgb 9.7 gm/dL (Normal is 12.0-15.5 gm/dL) Blood [facility] HCT 28.4 % (Normal is 34.9-44.5 %) Blood [facility] MCH 30.1 pg (Normal is 26.0-34.0 pg) Blood [facility] MCHC 34.3 gm/dL (Normal is 31.0-37.0 gm/dL) Blood [facility] MCV 87.9 fL (Normal is 81.6-98.3 fL) Blood [facility] Plt Cnt 255 x10^3/mcL (Normal is 150-4 50 x10^3/mcL) Blood [facility] MPV 8.3 (Normal is 6.7-10.4) [facility] RDW 13.7 % (Normal is 11.7-14.4 %) [facility] Neutrophils% Auto 79.1 % (Normal is 34.0-64.0 %) [facility] Lymphocytes% Auto 10.7 % (Normal is 15.0-44.0 %) [facility] Monocytes% Auto 10.00 % (Normal is 4.00-7.00 %) [facility] Basophils% Auto .1 % (Normal is 0.0-2 .0 %) [facility] Eosinophils% Auto 0.1 % (Normal is 0.0-7.0 %) Blood [facility] Neutrophils# Auto 17.70 (Normal is 1.70-7.00) Blood [facility] Lymphocytes# Auto 2.40 x10^3/mcL (Normal is 0.80-3.70 x10^3/mcL) Blood [facility] Monocytes# Auto 2.20 x10^3/mcL (Normal is 0.20-0.90 x10^3/mcL) Blood [facility] Basophils# Auto 0.00 x10^3/mcL (Normal is 0.00-2.00 x10^3/mcL) Blood [facility] Eos# Auto 0.00 x10^3/mcL (Normal is 0.00-0.54 x10^3/mcL) Blood [facility] 06/01/22 Test Result Reference Range Specimen Source [facility]o [facility] RhIG Vial(s) Not Eligible Blood [facility] 05/30/22 Test Result Reference [facility] Blood [facility] ABO/Rh Retype O Pos Blood [facility] Antibody Screen Gel Negative ABSC Blood [facility] WBC 26.2 x10^3/mcL (Normal is 4.0-11.0 x10^3/mcL) Blood [facility] RBC 3.87 x10^12/L (Normal is 3.90-5.03 x10^12/L) Blood [facility] Hgb 11.7 gm/dL (Normal is 12.0-15.5 gm/dL) Blood [facility] HCT 34.5 % (Normal is 34.9-44.5 %) Blood [facility] MCH 30.3 pg (Normal is 26.0-34.0 pg) Blood [facility] MCHC 34.0 gm/dL (Normal is 31.0-37.0 gm/dL) Blood [facility] MCV 89.2 fL (Normal is 81.6-98.3 fL) Blood [facility] Plt Cnt 308 x10^3/mcL (Normal is 150-4 50 x10^3/mcL) Blood [facility] MPV 9.1 (Normal is 6.7-10.4) [facility] RDW 13.5 % (Normal is 11.7-14.4 %) Blood [facility] Neutrophils% Auto 90.5 % (Normal is 34.0-64.0 %) Blood [facility] Lymphocytes% Auto 7.0 % (Normal is 15.0-44.0 %) Blood [facility] Monocytes% Auto 1.90 % (Normal is 4.00-7.00 %) [facility] Basophils% Auto .2 % (Normal is 0.0-2 .0 %) Blood [facility] Eosinophils% Auto 0.5 % (Normal is 0.0 -7.0 %) [facility] Neutrophils# Auto 23.69 (Normal is 1.70-7.00) [facility] Lymphocytes# Auto 1.82 x10^3/mcL (Normal is 0.80-3.70 x10^3/mcL) Blood [facility] Monocytes# Auto 0.50 x10^3/mcL (Normal is 0.20-0.90 x10^3/mcL) Blood [facility] Basophils# Auto 0.05 x10^3/mcL (Normal is 0.00-2.00 x10^3/mcL) [facility] Eos# Auto 0.13 x10^3/mcL (Normal is 0.00-0.54 x10^3/mcL) [facility] [id number] Negative (Normal is Negative) Nasal Swab U Amp Man Negative Urine [facility] U Opal Man Negative Urine [facility] U Dhiraj Man Negative Urine [facility] U WU Man Negative Urine [facility] U Methadone Man Negative Urine [facility] U Opiate Man Negative Urine [facility] U PCP Man Negative Urine [facility] U TCA Man Negative Urine [facility] U THC Man Positive Urine [facility] U mAmp Man Negative Urine [facility] U Buprenor Man Negative Urine [facility] U Oxycodone Man Negative Urine [place] [facility] [place] [facility] U Propoxy Man Negative Urine [place] Krystin k [facility] Laboratory Information [facility] CLIA Number: [id number] [address] [place] [address]- [facility] [address] [place] [address]- [facility] CLIA Number: [id number] [address] [place], [place] [address] CLIA Number: [id number] Vital Signs 06/02/22 GE Admin Systolic Blood Pressure 126 (Normal is 25-300) GE Admin Diastolic Blood Pressure 79 (Normal is 10-180) GE Temperature Oral 98.2 (Normal is 9 0.0-106.0) Blood Pressure 115/64 (Normal is 25-30 0/10-180) Mean Arterial Pressure, Cuff 80 (No rmal is 15-150) Temperature Oral 98.1 DegF (Normal is 96.6 -99.6 DegF) SpO2 98 (Normal is 0-100 ) Peripheral Pulse Rate 74 (Normal is 30-300) Respiratory Rate 16 (Normal is 2-15 0) 05/30/22 Patient Height 164 cm Patient Weight (kg) 59.8 kg Thomson Body Weight Calculated 56.004 kg BSA Measured 1.65 m2 Body Mass Index Measured 22.23 kg/m2 Social History Social History Type Response Smoking Status Tobacco use status 3 0 days prior to admission No tobacco use of any form;Never (less than 100 in lifetime) entered on: 05/30/22 Sex Female Hospital Discharge Instructions Patient Education 06/02/2022 09:11:01 Baby Blues Baby Blues The period begins right after the of a baby. During this time, there is often john and excitement. It is also a time of many changes in the life of the parents. A mother may feel happy one minute and sad or stressed the next. These feelings of sadness, called the baby blues, usuallyhappen in the period right after the baby is born and go away within a week or two. What are the causes? The exact cause of this condition is not known. Changes in hormone levels after childbirth are believed to trigger some of the symptoms. Other factors that can play a role in these mood changes include: ??? Lack of sleep. ??? Stressful life events, such as financial problems, caring for a loved one, or of a loved one. ??? Genetics. What are the signs or symptoms? Symptoms of this condition include: ??? Changes in mood, such as going from extreme happiness to sadness. ??? A decrease in concentration. ??? Difficulty sleeping. ??? Crying spells and tearfulness. ??? Loss of appetite. ??? Irritability. ??? Anxiety. If these symptoms last for more than 2 weeks or become more severe, you may have depression. How is this diagnosed? This condition is diagnosed based on an evaluation of your symptoms. Your health care provider may use a screening tool that includes a list of questions to help identify a person with the baby bluesor depression. How is this treated? The baby blues usually go away on their own in 1???2 weeks. Social support is often what is needed.You will be encouraged to get adequate sleep and rest. Follow these instructions at home: Lifestyle ??? Get as much rest as you can. Take a nap when the baby sleeps. ??? Exercise regularly as told by your health care provider. Some women find yoga and walking to behelpful. ??? Eat a balanced and nourishing diet. This includes plenty of fruits and vegetables, whole grains, and lean proteins. ??? Do little things that you enjoy. Take a bubble bath, read your favorite magazine, or listen to your favorite music. ??? Avoid alcohol. ??? Ask for help with digital project manager, cooking, grocery shopping, or running errands. Do not try to do everything yourself. Consider hiring a staff attorney to help. This is a professional who specializes in providing support to new mothers. ??? Try not to make any major life changes during or right after giving . This can add stress. General instructions ??? Talk to people close to you about how you are feeling. Get support from your partner, family members, friends, or other new moms. You may want to join a support group. ??? Find ways to manage stress. This may include: ??? Writing your thoughts and feelings in a journal. ??? Spending time outside. ??? Spending time with people who make you laugh. ??? Try to stay positive in how you think. Think about the things you are grateful for. ??? Take czlh-yjr-bjnkgkg and prescription medicines only as told by your health care provider. ??? Let your health care provider know if you have any concerns. ??? Keep all visits. This is important. Contact a health care provider if: ??? Your baby blues do not go away after 2 weeks. Get help right away if: ??? You have thoughts of taking your own life (suicidal thoughts), or of harming your baby or someone else. ??? You see or hear things that are not there (hallucinations). If you ever feel like you may hurt yourself or others, or have thoughts about taking your own life,get help right away. Go to your nearest emergency department or: ??? Call your local emergency services (718 in the [place] ??? Call a suicide crisis helpline, such as the National Suicide Prevention Lifeline, at or 281 in the [place] This is open 24 hours a day in the [place] ??? Text the Crisis Text Line at 466866 (in the [place] Summary ??? After giving , you may feel happy one minute and sad or stressed the next. Feelings of sadness that happen right after the baby is born and go away after a week or two are called the baby blues. ??? You can manage the baby blues by getting enough rest, eating a healthy diet, exercising, spending time with supportive people, and finding ways to manage stress. ??? If feelings of sadness and stress last longer than 2 weeks or get in the way of caring for yourbaby, talk with your health care provider. This may mean you have depression. This information is not intended to replace advice given to you by your health care provider. Make sure you discuss any questions you have with your health care provider. Document Revised: 09/30/2021 Document Reviewed: 08/29/2020 [employer] Patient Education ?? 2021 [employer] 06/02/2022 09:11:01 Care After Vaginal Delivery Care After Vaginal Delivery The following information offers guidance about how to care for yourself from the time you deliver your baby to 6???12 weeks after delivery ( period). If you have problems or questions, contact your health care provider for more specific instructions. Follow these instructions at home: Vaginal bleeding ??? It is normal to have vaginal bleeding (lochia) after delivery. Wear a sanitary pad for bleedingand discharge. ??? During the first week after delivery, the amount and appearance of lochia is often similar to amenstrual period. ??? Over the next few weeks, it will gradually decrease to a dry, yellow-brown discharge. ??? For most women, lochia stops completely by 4???6 weeks after delivery, but can vary. ??? Change your sanitary pads frequently. Watch for any changes in your flow, such as: ??? A sudden increase in volume. ??? A change in color. ??? Large blood clots. ??? If you pass a blood clot from your vagina, save it and call your health care provider. Do not flush blood clots down the toilet before talking with your health care provider. ??? Do not use tampons or douches until your health care provider approves. ??? If you are not , your period should return 6???8 weeks after delivery. If you are feeding your baby breast milk only, your period may not return until you stop . Perineal care ??? Keep the area between the vagina and the anus (perineum) clean and dry. Use medicated pads and pain-relieving sprays and creams as directed. ??? If you had a surgical cut in the perineum (episiotomy) or a tear, check the area for signs of infection until you are healed. Check for: ??? More redness, swelling, or pain. ??? Fluid or blood coming from the cut or tear. ??? Warmth. ??? Pus or a bad smell. ??? You may be given a squirt bottle to use instead of wiping to clean the perineum area after you use the bathroom. Pat the area gently to dry it. ??? To relieve pain caused by an episiotomy, a tear, or swollen veins in the anus (hemorrhoids), take a warm sitz bath 2???3 times a day. In a sitz bath, the warm water should only come up to your hips and cover your buttocks. Breast care ??? In the first few days after delivery, your breasts may feel heavy, full, and uncomfortable (breast engorgement). Milk may also leak from your breasts. Ask your health care provider about ways to help relieve the discomfort. ??? If you are : ??? Wear a bra that supports your breasts and fits well. Use breast pads to absorb milk that leaks. ??? Keep your nipples clean and dry. Apply creams and ointments as told. ??? You may have uterine contractions every time you breastfeed for up to several weeks after delivery. This helps your uterus return to its normal size. ??? If you have any problems with , notify your health care provider or successfactors consultant. ??? If you are not : ??? Avoid touching your breasts. Do not squeeze out (express) milk. Doing this can make your breasts produce more milk. ??? Wear a good-fitting bra and use cold packs to help with swelling. Intimacy and sexuality ??? Ask your health care provider when you can engage in sexual activity. This may depend upon: ??? Your risk of infection. ??? How fast you are healing. ??? Your comfort and desire to engage in sexual activity. ??? You are able to get after delivery, even if you have not had your period. Talk with your health care provider about methods of control (contraception) or family planning if you desire future pregnancies. Medicines ??? Take jjxh-muq-vantcwe and prescription medicines only as told by your health care provider. ??? Take an vhqg-mni-srepfyf stool softener to help ease bowel movements as told by your health care provider. ??? If you were prescribed an antibiotic medicine, take it as told by your health care provider. Donot stop taking the antibiotic even if you start to feel better. ??? Review all previous and current prescriptions to check for possible transfer into breast milk. Activity ??? Gradually return to your normal activities as told by your health care provider. ??? Rest as much as possible. Nap while your baby is sleeping. Eating and drinking ??? Drink enough fluid to keep your urine pale yellow. ??? To help prevent or relieve constipation, eat high-fiber foods every day. ??? Choose healthy eating to support or weight loss goals. ??? Take your vitamins until your health care provider tells you to stop. General tips/recommendations ??? Do not use any products that contain nicotine or tobacco. These products include cigarettes, chewing tobacco, and vaping devices, such as e-cigarettes. If you need help quitting, ask your health care provider. ??? Do not drink alcohol, especially if you are . ??? Do not take medications or drugs that are not prescribed to you, especially if you are . ??? Visit your health care provider for a checkup within the first 3???6 weeks after delivery. ??? Complete a comprehensive visit no later than 12 weeks after delivery. ??? Keep all follow-up visits for you and your baby. Contact a health care provider if: ??? You feel unusually sad or worried. ??? Your breasts become red, painful, or hard. ??? You have a fever or other signs of an infection. ??? You have bleeding that is soaking through one pad an hour or you have blood clots. ??? You have a severe headache that doesn't go away or you have vision changes. ??? You have nausea and vomiting and are unable to eat or drink anything for 24 hours. Get help right away if: ??? You have chest pain or difficulty breathing. ??? You have sudden, severe leg pain. ??? You faint or have a seizure. ??? You have thoughts about hurting yourself or your baby. If you ever feel like you may hurt yourself or others, or have thoughts about taking your own life,get help right away. Go to your nearest emergency department or: ??? Call your local emergency services (911 in the [place] ??? The National Suicide Prevention Lifeline at or 850 in the [place] This suicide crisis helpline is open 24 hours a day. ??? Text the Crisis Text Line at 601914 (in the [place] Summary ??? The period of time after you deliver your up to 6???12 weeks after delivery is called the period. ??? Keep all follow-up visits for you and your baby. ??? Review all previous and current prescriptions to check for possible transfer into breast milk. ??? Contact a health care provider if you feel unusually sad or worried during the period. This information is not intended to replace advice given to you by your health care provider. Make sure you discuss any questions you have with your health care provider. Document Revised: 09/30/2021 Document Reviewed: 11/20/2020 [place] Patient Education ?? 2021 [employer]. History and physical note * ANTHONY CAREY MD: PERFORM, SIGN, VERIFY Event Display: History and Physical Authored Date: Patient: IVETT AGUIRRE Age: 22 years Sex: Female : 2000 Associated Diagnoses: None Author: ANTHONY CAREY MD Basic Information Gestational Age: Gestational Age (EGA) and HERNANDEZ * Note: EGA calculated as of 05/30/2022 No EGA/HERNANDEZ calculations have been recorded . Chief Complaint contractions History of Present Illness Patient is Para Information: : 0 Para Term: 0 Para : 0 Para Abortions: 0 Para Livin. 22 yowf transferred from [place] via helicopter due to labor. She presented there andchanged her cervix from 3.5 to 6cm[address] She sees Dr Robert for care. She is s/p an at 34 weeks with her previous baby. She is 33w2d Review of Systems Constitutional: Negative. Cardiovascular: Negative. Gastrointestinal: Negative. Genitourinary: Negative. Gynecologic: Negative. Musculoskeletal: Negative. All other systems are negative Health Status Allergies: Allergic Reactions (Selected) No Known Allergies, Allergies (Active and Proposed Allergies Only) No Known Allergies (Severity: Unknown severity, Onset: Unknown) Current medications: (Selected) Inpatient Medications Ordered Benadryl: 12.5 mg, IV Push, q6H, PRN: itching LR Bolus: 500 mL, 1000 mL/hr, IV, Once, PRN: BP less than (see comment) Magnesium Sulfate IV Additive 20 gm [2 gm/hr] + Sterile Water for infusion 500 mL: 50 mL/hr, IV, Stop: 05/31/22 7:57:00 CDT Zofran: 4 mg, IV Push, q6H, PRN: nausea/vomiting calcium gluconate: 1,000 mg, 10 mL, 60 mL/hr, IV Piggyback, As Indicated, PRN: other (see comment) ePHEDrine: 10 mg, IV, q10min, PRN: BP less than (see comment) fentaNYL-bupivacaine 2 mcg/mL-0.125% in NS EPIDURAL 1 mL: EPIDURAL, Epidural, Stop: 06/04/22 19:46:00 CDT phenylephrine 1 mg/10 mL-NaCl 0.9% intravenous solution: 100 mcg, 1 mL, IV, q3min, PRN: BP less than (see comment) Documented Medications Documented Zofran 4 mg oral tablet: 1 tab(s), Oral, q8H, PRN: as needed for nausea/vomiting, 0 Refill(s), Medications (8) Active Scheduled: (0) Continuous: (2) fentaNYL-bupivacaine 2 mcg/mL-0.125% in NS 1 mL 1 mL, Epidural magnesium sulfate 20 gm [2 gm/hr] + Sterile Water Premix Diluent 500 mL 500 mL, IV, 50 mL/hr PRN: (6) calcium gluconate 1,000 mg 10 mL, IV Piggyback, As Indicated diphenhydrAMINE 50 mg/1 mL Soln-Inj 12.5 mg 0.25 mL, IV Push, q6H ePHEDrine 50 mg/mL Soln-Inj 10 mg 0.2 mL, IV, q10min Lactated Ringers Injection 500 mL, IV, Once ondansetron 4 mg/2 mL Soln-Inj 4 mg 2 mL, IV Push, q6H phenylephrine 1 mg/10 mL NS Soln-IV; 10 mL 100 mcg 1 mL, IV, q3min Problem list: No problems recorded Histories Family History: No family history items have been selected or recorded. History Lab from [facility] 05/30/2022 19:45 CDT U Amp Man Negative U Opal Man Negative U Dhiraj Man Negative U WU Man Negative U Methadone Man Negative U Opiate Man Negative U PCP Man Negative U TCA Man Negative U THC Man Positive U mAmp Man Negative U Buprenor Man Negative U Oxycodone Man Negative U Propoxy Man Negative 05/30/2022 19:40 CDT WBC 26.2 x10^3/mcL HI RBC 3.87 x10^12/L LOW Hgb 11.7 gm/dL LOW HCT 34.5 % LOW MCH 30.3 pg MCHC 34.0 gm/dL MCV 89.2 fL Plt Cnt 308 x10^3/mcL MPV 9.1 RDW 13.5 % Neutrophils% Auto 90.5 % HI Lymphocytes% Auto 7.0 % LOW Monocytes% Auto 1.90 % LOW Basophils% Auto 0.2 % Eosinophils% Auto 0.5 % Neutrophils# Auto 23.69 HI Lymphocytes# Auto 1.82 x10^3/mcL Monocytes# Auto 0.50 x10^3/mcL Basophils# Auto 0.05 x10^3/mcL Eos# Auto 0.13 x10^3/mcL Procedure history: Cholecystectomy ([id number]). Social History Social & Psychosocial History Social History Home/Environment Injuries/Abuse/Neglect in household: No. Abuse Concerns: No Signs or Symptoms. Neglect Concerns: NoSigns or Symptoms. Tobacco No tobacco use of any form, Never (less than 100 in lifetime) Marijuana Recreational Use Current every day smoker Psychosocial History No active psychosocial history has been recorded . Physical Examination Vital Signs 05/30/2022 20:39 CDT Peripheral Pulse Rate Peripheral Pulse Rate Systolic Blood Pressure 113 Diastolic Blood Pressure 67 Mean Arterial Pressure, Cuff 84 05/30/2022 20:36 CDT Peripheral Pulse Rate 118 Systolic Blood Pressure 121 Diastolic Blood Pressure 66 Mean Arterial Pressure, Cuff 86 05/30/2022 20:34 CDT Peripheral Pulse Rate 107 05/30/2022 20:33 CDT Peripheral Pulse Rate 114 Systolic Blood Pressure 124 Diastolic Blood Pressure 68 Mean Arterial Pressure, Cuff 89 05/30/2022 20:29 CDT Peripheral Pulse Rate Peripheral Pulse Rate Systolic Blood Pressure 96 Diastolic Blood Pressure 53 Mean Arterial Pressure, Cuff 71 05/30/2022 20:27 CDT Peripheral Pulse Rate 109 Systolic Blood Pressure 114 Diastolic Blood Pressure 69 Mean Arterial Pressure, Cuff 84 05/30/2022 20:26 CDT Peripheral Pulse Rate 112 Systolic Blood Pressure 118 Diastolic Blood Pressure 65 Mean Arterial Pressure, Cuff 85 05/30/2022 20:24 CDT Peripheral Pulse Rate Peripheral Pulse Rate Systolic Blood Pressure 113 Diastolic Blood Pressure 57 Mean Arterial Pressure, Cuff 78 05/30/2022 20:20 CDT Peripheral Pulse Rate 86 Systolic Blood Pressure 115 Diastolic Blood Pressure 68 Mean Arterial Pressure, Cuff 85 05/30/2022 20:19 CDT Peripheral Pulse Rate 103 05/30/2022 20:17 CDT Peripheral Pulse Rate 81 Systolic Blood Pressure 114 Diastolic Blood Pressure 71 Mean Arterial Pressure, Cuff 88 05/30/2022 20:15 CDT Peripheral Pulse Rate 71 Systolic Blood Pressure 121 Diastolic Blood Pressure 73 Mean Arterial Pressure, Cuff 92 05/30/2022 20:14 CDT Peripheral Pulse Rate 86 05/30/2022 20:10 CDT Peripheral Pulse Rate 75 05/30/2022 20:04 CDT Peripheral Pulse Rate 70 05/30/2022 19:58 CDT Peripheral Pulse Rate 73 05/30/2022 19:54 CDT Peripheral Pulse Rate 84 05/30/2022 19:49 CDT Peripheral Pulse Rate 78 05/30/2022 19:44 CDT Peripheral Pulse Rate 73 05/30/2022 19:39 CDT Peripheral Pulse Rate Peripheral Pulse Rate Systolic Blood Pressure 126 Diastolic Blood Pressure 79 Mean Arterial Pressure, Cuff 97 05/30/2022 19:38 CDT Temperature Oral 98.5 DegF Respiratory Rate 16 br/min Systolic Blood Pressure 126 mmHg HI Diastolic Blood Pressure 79 mmHg Mean Arterial Pressure, Cuff 95 mmHg Vital Signs (last 24 hrs) Last Charted Temp Oral 98.5 DegF (MAY 30 19:38) Heart Rate Peripheral 81552 (MAY 30 20:39) Resp Rate 16 br/min (MAY 30 19:38) SBP 113 (MAY 30 20:39) DBP 67 (MAY 30 20:39) BMI 22.23 (MAY 30 19:38) Measurements from flowsheet : Measurements 05/30/2022 19:38 CDT Patient Weight Kilograms 59.8 kg Patient Weight 59.8 kg Thomson Body Weight Calculated 56.004 kg BSA Measured 1.65 m2 Body Mass Index Measured 22.23 kg/m2 Patient Height cm 164 cm Patient Height 164 cm Height Method Stated Height Weight Method Stated Weight General: Alert and oriented, No acute distress. Neck: Supple. Respiratory: Respirations are non-labored. Cardiovascular: Normal rate, Regular rhythm. Gastrointestinal: Soft, Non-tender, gravid. Neurologic: Alert, Oriented. Psychiatric: Cooperative, Appropriate mood & affect. Impression and Plan IUP 33w2d, labor. Epidural if desires. pt was started on MgSO4 and given steroids in [place]. Will give 2nd dose of steroids at 12 hours if not delivered. Electronically Signed on 05/30/2022 20:46 CDT ANTHONY CAREY MD Consult note * ANAND VIZCARRA MD: PERFORM, SIGN, VERIFY Event Display: Consultation Authored Date: [id number] Patient: IVETT AGUIRRE Age: 22 years Sex: Female : 2000 Associated Diagnoses: None Author: ANAND VIZCARRA MD [facility] Consult Note Created Date/Time 05/31/2022 12:40:16 Note Date Note Time MRN PAC 05/31/2022 10:30:00 [id number] Hospital Name [facility] First Name Last Name Place of Service Requested By Ivett aguirre Labor and Delivery Dr. Kang Reason for Consultation 33 2/7 week, PTL and SROM since 05/30/2022 evening. Maternal History Mother's Age Mother's Blood Type Mother's Race Para 2000 20 O Pos White 3 2 RPR Serology HIV Rubella GBS HBsAg Care EDC OB Non-Reactive Negative Immune Unknown Negative Yes 07/16/2022 Family History previously at 34 week GA. Complications Premature onset of labor 3rd tri, w/ delivery 3rd trimester (O60.14X0) Premature rupture of membranes. > 24 hr onset of labor, 3rd tri (O42.113) 33 weeks gestation of (Z3A.33) Maternal Steroids:??Yes Last Dose Date Last Dose Time Next Recent Dose Date Next Recent Dose Time 05/30/2022 21:00:00 05/31/2022 21:00:00 Maternal Medications:??Yes Ampicillin Comment acute onset of active labor with leaking fluid since 05/30, transferred from [facility], adequate care. Present Plan labor augmentation Recommendations I have reviewed the mother`s medical chart and spoken with the net front end developer requesting this consult.?? I met with the mother.?? Female fetus. I reviewed the most common problems encountered for babies born at 33 weeks gestation, stressing that all babies are different, and the chances of complications tend to lessen at advancing gestational ages. While most any organ system can have a complication, the absolute risk of severe complications is very low and the opportunity for a good outcome is high.?? Among infants admitted to the NICU,survival is approximately 99% and survival without severe complications is very high. I discussed the delivery room management, and explained the personnel that will be present at delivery. I reviewed the plan for delayed cord clamping (if appropriate) and thermoregulation support.?? Many infants at this age need some respiratory support due to lung immaturity, commonly CPAP, thoughsome need mechanical ventilation. We also discussed the use of artificial surfactant, which may or may not be needed.?? While uncommon, some infants need other measures in their resuscitation (e.g. CPR, fluid, blood). I reviewed the typical cares given during admission to the NICU.?? Infants at this gestation typically need IV access and that may be an umbilical catheter(s), PICC line or peripheral IV to allow nutrition.?? When sufficiently stable, gavage feedings will be started.? We discussed the critical im portance of to optimize outcome (improved neurodevelopment, reduced risk of NEC and infections among other things).?? We discussed how we will support mother???s . We discussed common discharge goals, including mature thermoregulation, mature respiratory status and ability to thrive on oral feedings.?? Many infants achieve this around 36-39 weeks corrected gestation, although some infants are ready sooner and some take longer. Time was allotted for the family to ask questions, and all questions were answered to the best of my ability, given the information provided.? The family understands and agrees with the present plan. Thank you for inviting me to speak with the family.?? We remain available if the family desires further discussion or clarification. Total clinician time devoted to the patient on the day of this visit excluding time spent on other separately reported services was 25 minutes. Authenticated by: ANAND VIZCARRA MD Date/Time: 05/31/2022 12:50 Electronically Signed on 05/31/2022 13:52 CDT ANAND VIZCARRA MD Progress note * PARIS MCKEON MD: PERFORM, SIGN, VERIFY Event Display: Progress Note Authored Date: [id number] Patient: IVETT AGUIRRE Age: 22 years Sex: Female : 2000 Associated Diagnoses: None Author: PARIS MCKEON MD Pt comfortable with epidural afebrile, VSS GBS done at [place] prior to transfer, called them, no answer, will fax request for result pt on ampicillin s/p magnesium reviewed record, EDC 07/16 by LMP c/w 11 wk sono, EGA 33 4/7 wks FHR 140s reactive, ctx every 4-8 minutes pt with PPROM last night, large gush fluid and nitrazine pos VE: /-2/vtx, forebag ruptured anticipate vaginal delivery NICU aware Electronically Signed on 06/01/2022 10:44 CDT PARIS MCKEON MD * EUSEBIO AVILA DO: PERFORM Event Display: Progress Note Authored Date: [id number] Subjective 22-year-old??G2, P1??female at 33 weeks and 3 days who??initially presented as transfer from [place] with labor.?? Her last check was 7 1/2 cm.?? She has an epidural.?? Not feeling contractions.?? Category 1 NST.?? Plan is to continue to monitor,??repeat Celestone at 12 hours??or noon. ??Patient did receive??some type of steroid prior to coming??[place]??but it was not Celestone.?? We will complete the Celestone course.?? Questions and concerns answered. ??Patient agrees with planof care. Objective Vitals & Measurements T:??98.0??(Oral)?? HR:??68??(Peripheral)?? RR:??98?? BP:??99/55?? SpO2:??95?? HT:??164??cm?? WT:??59.8??kg??(Dosing)?? BMI:??22.23?? Medications Inpatient ampicillin Benadryl, 12.5 mg= 0.25 mL, IV Push, q6H, PRN calcium gluconate, 1000 mg= 10 mL, IV Piggyback, As Indicated, PRN Celestone, 12 mg= 2 mL, IM, [id number] ePHEDrine, 10 mg= 0.2 mL, IV, q10min, PRN fentaNYL-bupivacaine 2 mcg/mL-0.125% in NS EPIDURAL 1 mL, 1 mL, Epidural, Once LR Bolus, 500 mL, IV, Once, PRN phenylephrine 1 mg/10 mL-NaCl 0.9% intravenous solution, 100 mcg= 1 mL, IV, q3min, PRN Zofran, 4 mg= 2 mL, IV Push, q6H, PRN Assessment/Plan Orders: betamethasone, 12 mg, Susp-Inj, IM, [id number], Routine, Order Duration: 1 dose(s), First Dose: 05/31/22 12:00:00 CDT, Stop Date: 05/31/22 12:00:00 CDT Electronically Signed on 05/31/2022 09:02 CDT EUSEBIO AVILA DO Patient Care team information Care Team Personnel Name: MISC, DICTATING PHYSICIAN LIZETH Position: Physician - View Only Member Role: Primary Care Physician Address: Address: [address] [place] [id number]- [place]
== END 2022-09-06 14:31 | disposition home or self-care (01) | DRG 885 ==
PROVIDERS: Admitting Provider Psychiatry & Neurology Psychiatry; PCP Obstetrics & Gynecology; Visit Provider Psychiatry & Neurology Psychiatry
DX: F33.9 Major depressive disorder, recurrent, unspecified (principal); Z63.0 Problems in relationship with spouse or partner; F17.210 Nicotine dependence, cigarettes, uncomplicated; F12.90 Cannabis use, unspecified, uncomplicated; F43.10 Post-traumatic stress disorder, unspecified; F41.1 Generalized anxiety disorder
CPT/HCPCS: 97150; 97165; 99238